=== PATIENT | male | born 1930 | race Caucasian/White ===

== ENCOUNTER 2016-06-08 19:09 | Inpatient (IN) | payer OTHER ==
[2016-06-08] MEDS ORDERED: SODIUM CHLORIDE 1,000 ML IV SCH (19:30)
[2016-06-08 19:42] LABS: BASOPHIL 0.3 % (0-2.0); EOSINOPHIL 0.2 % (0-4.5); MCH 30.7 pg (25.7-33.7); MCHC 33.2 g/dl (32.0-35.9); MEAN CELL VOLUME 92.4 fl (80-96); MEAN PLT VOLUME 8.8 fl (7.5-11.1); NEUTROPHILS 82.4 % (42.8-82.8); PLATELET COUNT 92 K/MM3 (134-434); RDW 18.8 % (11.9-15.9)
[2016-06-08 19:53] LABS: INR 1.47 (0.82-1.09); PROTHROMBIN TIME (PATIENT) 16.3 SEC (9.98-11.88)
[2016-06-08 20:03] LABS: ALBUMIN 3.8 g/dl (3.4-5.0); CALCIUM 8.5 mg/dL (8.5-10.1); CREATININE 1.2 mg/dL (0.7-1.3); TOT PROT 7.7 g/dl (6.4-8.2)
[2016-06-08 20:04] LABS: TROPONIN I 0.04 ng/ml (0.00-0.05)
[2016-06-08] MEDS ORDERED: FUROSEMIDE 40 MG/4 ML INJECTABLE VIAL IVPB ONE (20:09)
[2016-06-08] MEDS ORDERED: NITROGLYCERIN 25MG/D5W 250ML 250 ML IVPB SCH (20:15)
[2016-06-08] MEDS ORDERED: NITROGLYCERIN 25MG/D5W 250ML 250 ML IVPB ONE (20:23)
[2016-06-08] MEDS ORDERED: FUROSEMIDE 40 MG/4 ML INJECTABLE VIAL ONE (20:23)
--- NOTE | 2016-06-08 21:03 | PDOC ---
History of Present Illness - General History Source: Patient, EMS, Spouse Exam Limitations: No Limitations - History of Present Illness Initial Comments: 06/08/16 21:36 Patient was seen and evaluated immediately upon arrival to the ED, this note was entered at a later time. The patient is an 85 year old male, with a significant past medical history of HTN, Afib on Eliquis, s/p CABG (2011) and s/p valve replacement (2011), who presents to the emergency department via EMS with sudden onset weakness at approximately 6PM this evening. The patients is with him in the ED. She states that when his symptoms began, the patient immediately called her over. She states that the patient suddenly began shaking, which she states lasted for a couple minutes before subsiding. She immediately initiated EMS. EMS reports that on scene, the patient was weak and was transported to the ambulance via a stair chair but was AAO x 4 and was verbal en route to the ED. However, upon arrival to the ED, the patient is nonverbal. The patients denies a history of seizures. states that this has never happened to him before. Allergies: None reported. Past Surgical History: CABG (1998); Valve replacement (2011) Social History: Former smoker. Denies alcohol or drug use. PCP: Dr. Soriano <Desiree Ann - Last Filed: 06/08/16 23:55> <Parker Charlton - Last Filed: 06/09/16 00:59> - General Chief Complaint: Weakness Stated Complaint: WEAKNESS Time Seen by Provider: 06/08/16 19:27 Past History <Desiree Ann - Last Filed: 06/08/16 23:55> - Past Medical History HTN: Yes Hypercholesterolemia: Yes Other medical history: Leaky Mitral Valve - Surgical History Cardiac Surgery: Yes (open Heart Sx) - Psycho/Social/Smoking Cessation Hx Suicidal Ideation: No Smoking History: Former smoker Have you smoked in the past 12 months: No Information on smoking cessation initiated: No Hx Alcohol Use: No Drug/Substance Use Hx: No <Parker Charlton - Last Filed: 06/09/16 00:59> - Past Medical History Allergies/Adverse Reactions: Allergies Allergy/AdvReac Type Severity Reaction Status Date / Time No Known Allergies Allergy Unverified 06/08/16 19:48 Home Medications: Ambulatory Orders Apixaban [Eliquis] 2.5 mg PO BID 06/08/16 Atorvastatin Ca [Lipitor] 40 mg PO HS 06/08/16 Furosemide [Lasix] 60 mg PO DAILY 06/08/16 Metoprolol Succinate [Toprol Xl] 50 mg PO DAILY 06/08/16 Review of Systems - Review of Systems Able to Perform ROS?: No Comments:: 06/08/16 21:37 Unable to perform ROS due to patients clinical condition at the time of arrival to the ED. <Desiree Ann - Last Filed: 06/08/16 23:55> *Physical Exam - Vital Signs Last Vital Signs Temp Pulse Resp BP Pulse Ox 98.9 F 87 21 102/74 97 06/08/16 19:10 06/08/16 20:42 06/08/16 20:42 06/08/16 20:42 06/08/16 20:42 <Desiree Ann - Last Filed: 06/08/16 23:55> - Vital Signs Last Vital Signs Temp Pulse Resp BP Pulse Ox 98.9 F 87 21 102/74 97 06/08/16 19:10 06/08/16 20:42 06/08/16 20:42 06/08/16 20:42 06/08/16 20:42 - Physical Exam Comments: 06/09/16 00:46 EXAMINATION: patient was seen and evaluated by me immediately upon arrival. This H&P is being recorded post admission. CONSTITUTIONAL: On initial evaluation at 21:49: Patient is awake, unable to speak, does not follow commands, appears mildly hypoxemic on room air HEAD: Normocephalic; atraumatic EYES: Unable to test for extraocular movements; pupils are irregular and nonreactive bilaterally; ENMT: External appears normal; normal oropharynx NECK: Supple; non-tender; no JVD, no carotid bruits; CARD: Irregular, Normal S1, S2; 2/6 sys murmurs, rubs, or gallops RESP: Normal chest excursion with respiration; + decreased breath sounds at the bases, mild intermittent rhonchi bilaterally; ABD: Soft, non-distended; non-tender; no palpable organomegaly, no palpable hernias EXT: Normal passive ROM in all four extremities; non-tender to palpation; distal pulses intact SKIN: Warm, dry, no rash NEURO: Awake, mute, doesn't follow commands, Babinski negative bilaterally, Upon reevaluation at 22:55 Patient is noted to be awake, alert, follows simple commands, is oriented to self only (patient states that he thinks he is at school) Unable to test for extraocular ocular movements; cranial nerves II through XII are grossly intact; motor is 2/5 to upper and lower extremities bilaterally; Patient reevaluated at 23:47 Patient appears more awake and alert, follows commands, is oriented to self and place, recognizes family members at bedside. Extraocular movements are intact bilaterally; motor: 3 of 5 to upper and lower extremities bilaterally; unable to test for pronation drift; gait-deferred. <Parker Charlton - Last Filed: 06/09/16 00:59> Heart Score/ECG Review #1 ECG reviewed & interpreted by me at: 19:55 (Vent Rate: 91 bpm. Atrial fibrillation with premature ventricular or aberrantly conducted complexes. Left bundle branch block. ) <Desiree Ann - Last Filed: 06/08/16 23:55> ED Treatment Course - LABORATORY CBC & Chemistry Diagram: 06/08/16 19:25 06/08/16 19:25 - ADDITIONAL ORDERS Additional order review: Laboratory Results 06/08/16 06/08/16 06/08/16 19:25 19:25 19:25 INR 1.47 H Sodium 142 Potassium 3.5 Chloride 102 Carbon Dioxide 28 Anion Gap 12 BUN 26 H Creatinine 1.2 Creat Clearance w eGFR 57.41 Random Glucose 143 H Calcium 8.5 Total Bilirubin 1.0 AST 14 L ALT 16 Alkaline Phosphatase 114 Creatine Kinase 104 Troponin I 0.04 Total Protein 7.7 Albumin 3.8 Triglycerides 86 Cholesterol 73 Total LDL Cholesterol 32 HDL Cholesterol 46 Blood Type A POSITIVE Antibody Screen Negative 06/08/16 19:25 RBC 3.38 L MCV 92.4 MCHC 33.2 RDW 18.8 H MPV 8.8 Neutrophils % 82.4 Lymphocytes % 11.0 Monocytes % 6.1 Eosinophils % 0.2 Basophils % 0.3 - Medications Given in the ED: ED Medications Discontinued Medications Generic Name Dose Route Start Last Admin Trade Name Freq PRN Reason Stop Dose Admin Furosemide 40 mg 06/08/16 20:09 06/08/16 20:30 Lasix Injection - IVPB 06/08/16 20:10 40 mg ONCE ONE Administration <Desiree Ann - Last Filed: 06/08/16 23:55> - LABORATORY CBC & Chemistry Diagram: 06/08/16 19:25 06/08/16 19:25 - ADDITIONAL ORDERS Additional order review: Laboratory Results 06/08/16 06/08/16 06/08/16 19:25 19:25 19:25 INR 1.47 H Sodium 142 Potassium 3.5 Chloride 102 Carbon Dioxide 28 Anion Gap 12 BUN 26 H Creatinine 1.2 Creat Clearance w eGFR 57.41 Random Glucose 143 H Calcium 8.5 Total Bilirubin 1.0 AST 14 L ALT 16 Alkaline Phosphatase 114 Creatine Kinase 104 Troponin I 0.04 Total Protein 7.7 Albumin 3.8 Triglycerides 86 Cholesterol 73 Total LDL Cholesterol 32 HDL Cholesterol 46 Blood Type A POSITIVE Antibody Screen Negative 06/08/16 19:25 RBC 3.38 L MCV 92.4 MCHC 33.2 RDW 18.8 H MPV 8.8 Neutrophils % 82.4 Lymphocytes % 11.0 Monocytes % 6.1 Eosinophils % 0.2 Basophils % 0.3 - RADIOLOGY Radiology Studies Ordered: Category Date Time Status HEAD CT (STROKE) [CT] Stat CT Scan 06/08/16 19:28 Completed CHEST X-RAY PORTABLE* [RAD] Stat Radiology 06/08/16 19:30 Completed - Medications Given in the ED: ED Medications Discontinued Medications Generic Name Dose Route Start Last Admin Trade Name Freq PRN Reason Stop Dose Admin Furosemide 40 mg 06/08/16 20:09 06/08/16 20:30 Lasix Injection - IVPB 06/08/16 20:10 40 mg ONCE ONE Administration <Parker Charlton - Last Filed: 06/09/16 00:59> Medical Decision Making - Medical Decision Making 06/08/16 21:37 EXAM: RAD/CHEST X-RAY PORTABLE Reviewed By: Dr. Kamari Hogan IMPRESSION: Cardiomegaly and possible mild congestion. Clinical correlation and follow-up recommended. EXAM: CT/HEAD CT (STROKE) Reviewed By: Dr. Kamari Hogan IMPRESSION: No evidence of acute intracranial pathology. EXAM: CT/HEAD CT WITHOUT CONTRAST Reviewed By: Dr. Kamari Hogan IMPRESSION: Limited study with suspected poorly defined bilateral pulmonary masses suspicious for malignancy. There are bilateral pleural effusions and bibasilar atelectasis also noted. Clinical correlation and follow up recommended. Called [facility] at at 19:33, 19:45 and 20:05. Connected and case discussed with Dr. Galindo at 20:05. <Desiree Ann - Last Filed: 06/08/16 23:55> - Medical Decision Making 06/09/16 00:53 Patient is a frail-appearing 85-year-old male with history of CAD, mitral valve repair, atrial fibrillation on Eliquis who presents with altered mental status, mutism and initial evaluation and diffuse weakness. Patient also presents with to maintain oxygen saturation above 95%. Patient's presentation is likely consistent with a post ictal state rather than acute CVA given the initial symptoms began with a seizure-like episode. I discussed the case with Dr. galindo of neurology who agreed that the patient was not a candidate for TPA given bilateral weakness, seizure prior to the onset of symptoms and previous anticoagulation with Eliquis. Patient's CT of head showed no evidence of acute intracranial pathology. After a period of observation, patient is now a no 3, follows commands but does complain of generalized weakness. Patient's chest x- ray revealed cardiomegaly, bilateral pleural effusions and alveolar infiltrates. CT of chest without IV contrast was obtained and revealed bilateral pleural effusions and poorly identified bilateral masses which are suspected for malignancy. Patient's history of trauma cytopenia is chronic. CBC reveals no evidence of leukocytosis and there is no indication for packed RBC transfusion at this time. Patient will be admitted to noncardiac telemetry further evaluation and treatment of his weakness as well as investigation of his pulmonary masses. We'll consult pulmonology. <Parker Charlton - Last Filed: 06/09/16 00:59> *DC/Admit/Observation/Transfer - Attestations Scribe Attestion: 06/08/16 21:35 Documentation prepared by Desiree Ann, acting as medical records administrator for Parker Charlton MD. <Desiree Ann - Last Filed: 06/08/16 23:55> <Parker Charlton - Last Filed: 06/09/16 00:59> Diagnosis at time of Disposition: Seizures, Pulmonary mass Altered mental status Qualifiers: Altered mental status type: unspecified Qualified Code(s): R41.82 - Altered mental status, unspecified - Discharge Dispostion Condition at time of disposition: Fair - Referrals Referrals: Americo Soriano [Primary Care Provider] -
--- NOTE | 2016-06-09 00:33 | PN ---
<Marian Shaikh - Last Filed: 06/09/16 00:32> Teaching Attending Note Name of Resident: Aleah Sargent <Scar Shay - Last Filed: 06/09/16 04:52> Teaching Attending Note ATTENDING PHYSICIAN STATEMENT I saw and evaluated the patient. I reviewed the resident's note and discussed the case with the resident. I agree with the resident's findings and plan as documented. SUBJECTIVE: Patient is an 85 year old male who presented to the emergency department via EMS with sudden onset weakness at approximately 6PM this evening. Patients was with him in the ED but has since gone home. She previously stated that when his symptoms began, he immediately called her over. She states that the patient suddenly began shaking, which she stated lasted for a couple minutes before subsiding. She immediately initiated EMS. EMS reported that on scene, the patient had another episode en route to the ED. Upon examination patient is oriented to name and place but not time. The patient notes that he feels very tired but denies any weakness or tingling. The patient states that he lives at home with his and at baseline he is ambulate without assistance. Patient denies any history of seizures or LOC. His previously denied any history of seizures. Past medical history: HTN, Afib, CABG (2011), and valve replacement (2011), OBJECTIVE: Vital Signs: Last Vital Signs Temp Pulse Resp BP Pulse Ox 98.3 F 68 20 101/67 95 06/09/16 00:30 06/09/16 00:30 06/09/16 00:30 06/09/16 00:30 06/09/16 00:30 GENERAL: (+) Oriented x2, awake, alert, and in no acute distress HEENT: (+) Pupils dilated with diminished response, atraumatic, EOMI. Moist mucosa. No JVD LUNGS: No distress, speaks full sentences, clear to auscultation bilaterally HEART: (+) Regular rate, irregular rhythm, normal S1 and S2, no murmurs, rubs or gallops, peripheral pulses normal and equal bilaterally. ABDOMEN: Soft, nontender, normoactive bowel sounds. No guarding, no rebound. No masses EXTREMITIES: Normal inspection, Normal range of motion, no edema. No clubbing or cyanosis. NEUROLOGICAL: Cranial nerves II through XII grossly intact. Normal speech, no focal sensorimotor deficits SKIN: Warm, Dry, normal turgor, no rashes or lesions noted. Labs: CBCD WBC 9.0 K/mm3 (4.0-10.0) 06/08/16 19:25 RBC 3.38 M/mm3 (4.00-5.60) L 06/08/16 19:25 Hgb 10.4 GM/dL (11.7-16.9) L 06/08/16 19:25 Hct 31.2 % (35.4-49) L 06/08/16 19:25 MCV 92.4 fl (80-96) 06/08/16 19:25 MCHC 33.2 g/dl (32.0-35.9) 06/08/16 19:25 RDW 18.8 % (11.9-15.9) H 06/08/16 19:25 Plt Count 92 K/MM3 (134-434) L 06/08/16 19:25 MPV 8.8 fl (7.5-11.1) 06/08/16 19:25 CMP Sodium 142 mmol/L (136-145) 06/08/16 19:25 Potassium 3.5 mmol/L (3.5-5.1) 06/08/16 19:25 Chloride 102 mmol/L (98-107) 06/08/16 19:25 Carbon Dioxide 28 mmol/L (21-32) 06/08/16 19:25 Anion Gap 12 (8-16) 06/08/16 19:25 BUN 26 mg/dL (7-18) H 06/08/16 19:25 Creatinine 1.2 mg/dL (0.7-1.3) 06/08/16 19:25 Creat Clearance w eGFR 57.41 (>60) 06/08/16 19:25 Calcium 8.5 mg/dL (8.5-10.1) 06/08/16 19:25 Total Bilirubin 1.0 mg/dL (0.2-1.0) 06/08/16 19:25 AST 14 U/L (15-37) L 06/08/16 19:25 ALT 16 U/L (12-78) 06/08/16 19:25 Alkaline Phosphatase 114 U/L (45-117) 06/08/16 19:25 Total Protein 7.7 g/dl (6.4-8.2) 06/08/16 19:25 Albumin 3.8 g/dl (3.4-5.0) 06/08/16 19:25 Imaging: Head CT Impression: No evidence of acute intracranial pathology. Chest CT Discussion: Evaluation of the lung garcia demonstrates poorly defined masses throughout both lungs. While these could represent areas of masslike consolidation, the possibility of malignancy is most likely. These masses include an ill-defined lesion in the left upper lobe measuring approximately 5.6 cm. There is a large central right lung mass which does contain calcification. Impression: Limited study with suspected poorly defined bilateral pulmonary masses suspicious for malignancy. There are bilateral pleural effusions and bibasilar atelectasis also noted. Clinical correlation and follow up recommended. Chest X-Ray Impression: Cardiomegaly and possible mild congestion. Clinical correlation and follow-up recommended. 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 Documentation prepared by Scar Shay, acting as medical billing representative for Dr. Hawa MD.
--- NOTE | 2016-06-09 00:39 | HP ---
CHIEF COMPLAINT: New onset seizure. PCP: Dr. Soriano. HISTORY OF PRESENT ILLNESS: 85 year old male was brought in by EMS accompanied by his after he had 1 episode of new onset seizure at home. As per the information, patient was in the kitchen and approximately at 6pm yesterday, patient suddenly began shaking for a couple of minutes, had to hold him to prevent from falling, but he ended up breaking some dishes. As per the EMS report, patient felt weak, was able to communicate, was AAO x 4 but on arrival to the ED, he was non verbal for sometime. Patients mentions its a new onset seizure, no similar episodes in the past before. On further questioning, patient said he doesn't remember what brought him to the hospital, doesn't remember his prior events. Patient reports of feeling tired and weak. Denies headache, dizziness, chest pain, sob, palpitation, abdominal pain, nausea or vomiting. Patient did say he has difficulty opening his eyes in bright light. Speech was clear and understandable. not at bed side. ER course was notable for: (1) CBC, CMP, UA (2) CXR, Head CT, CT chest (3) Nitroglycerine, Furosemide Recent Travel: None PAST MEDICAL HISTORY: HTN, Afib on Eliquis, s/p CABG (2011) and s/p valve replacement (2011) PAST SURGICAL HISTORY: As mentioned above Social History: Smoking: Started smoking at the age of 14 years, 1 pack/day , quit 20 yrs ago. Alcohol: Never took alcohol Drugs: No illicit drug use Family History: Unknown Allergies No Known Allergies Allergy (Unverified 06/08/16 19:48) HOME MEDICATIONS: Medication Instructions Recorded Apixaban [Eliquis] 2.5 mg PO BID 06/08/16 Atorvastatin Ca [Lipitor] 40 mg PO HS 06/08/16 Furosemide [Lasix] 60 mg PO DAILY 06/08/16 Metoprolol Succinate [Toprol Xl] 50 mg PO DAILY 06/08/16 REVIEW OF SYSTEMS CONSTITUTIONAL: Present: Generalized weakness, malaise Absent: fever, chills, diaphoresis, , loss of appetite, weight change HEENT: Absent: rhinorrhea, nasal congestion, throat pain, throat swelling, difficulty swallowing, mouth swelling, ear pain, eye pain, visual changes CARDIOVASCULAR: Absent: chest pain, syncope, palpitations, irregular heart rate, lightheadedness , peripheral edema RESPIRATORY: Absent: cough, shortness of breath, dyspnea with exertion, orthopnea, wheezing, stridor, hemoptysis GASTROINTESTINAL: Absent: abdominal pain, abdominal distension, nausea, vomiting, diarrhea, constipation, melena, hematochezia GENITOURINARY: Absent: dysuria, frequency, urgency, hesitancy, hematuria, flank pain, genital pain MUSCULOSKELETAL: Absent: myalgia, arthralgia, joint swelling, back pain, neck pain SKIN: Absent: rash, itching, pallor HEMATOLOGIC/IMMUNOLOGIC: Absent: easy bleeding, easy bruising, lymphadenopathy, frequent infections ENDOCRINE: Absent: unexplained weight gain, unexplained weight loss, heat intolerance, cold intolerance NEUROLOGIC: Present: Tired Absent: headache, focal weakness or paresthesias, dizziness, unsteady gait, seizure, mental status changes, bladder or bowel incontinence PSYCHIATRIC: Absent: anxiety, depression, suicidal or homicidal ideation, hallucinations. PHYSICAL EXAMINATION Vital Signs - 24 hr 06/08/16 06/08/16 06/08/16 19:10 19:49 20:13 Temperature 98.9 F Pulse Rate 101 H Pulse Rate [ Apical] Respiratory 18 Rate Blood Pressure 149/76 Blood Pressure 100/60 [Left Arm] Blood Pressure 117/58 [Right Arm] O2 Sat by Pulse 88 L 96 96 Oximetry (%) 06/08/16 06/08/16 06/09/16 20:42 21:52 00:30 Temperature 98.3 F 98.3 F Pulse Rate Pulse Rate [ 87 68 68 Apical] Respiratory 21 20 20 Rate Blood Pressure Blood Pressure 102/74 103/71 101/67 [Left Arm] Blood Pressure [Right Arm] O2 Sat by Pulse 97 95 Oximetry (%) GENERAL: Thinly built male, Awake, alert, and oriented to name, place, president of the [place], unable to answer year and day, in no acute distress. HEAD: Normal with no signs of trauma. EYES: Non reactive to light, mydriasis, EOM intact, no pallor or icterus. EARS, NOSE, THROAT: Ears normal. Moist mucous membranes. NECK: Supple. LUNGS: Breath sounds equal, clear to auscultation bilaterally. No wheezes, and no crackles. No accessory muscle use. HEART: Irregularly irregular, normal S1 and S2 without murmur. ABDOMEN: Soft, nontender, not distended, normoactive bowel sounds, no guarding, no rebound, no masses. No hepatomegaly or splenomegaly. MUSCULOSKELETAL: Normal range of motion at all joints. No bony deformities or tenderness. No CVA tenderness. UPPER EXTREMITIES: 2+ pulses, warm, well-perfused. No cyanosis. No clubbing. Cap refill <2 seconds. No peripheral edema. LOWER EXTREMITIES: 2+ pulses, warm, well-perfused. No calf tenderness. No peripheral edema. NEUROLOGICAL: Bulk and tone Normal, Power 3/5 in all limbs, reflexes normal including babinski negative PSYCHIATRIC: Cooperative. Eyes closed throughout the conversation. Appropriate mood and affect. SKIN: Warm, dry, normal turgor, no rashes or lesions noted. Laboratory Results - last 24 hr 06/08/16 06/08/16 06/08/16 19:25 19:25 19:25 WBC 9.0 RBC 3.38 L Hgb 10.4 L Hct 31.2 L MCV 92.4 MCHC 33.2 RDW 18.8 H Plt Count 92 L MPV 8.8 Neutrophils % 82.4 Lymphocytes % 11.0 Monocytes % 6.1 Eosinophils % 0.2 Basophils % 0.3 INR 1.47 H Sodium 142 Potassium 3.5 Chloride 102 Carbon Dioxide 28 Anion Gap 12 BUN 26 H Creatinine 1.2 Creat Clearance w eGFR 57.41 Random Glucose 143 H Calcium 8.5 Total Bilirubin 1.0 AST 14 L ALT 16 Alkaline Phosphatase 114 Creatine Kinase 104 Troponin I 0.04 Total Protein 7.7 Albumin 3.8 Triglycerides 86 Cholesterol 73 Total LDL Cholesterol 32 HDL Cholesterol 46 Blood Type Antibody Screen 06/08/16 19:25 WBC RBC Hgb Hct MCV MCHC RDW Plt Count MPV Neutrophils % Lymphocytes % Monocytes % Eosinophils % Basophils % INR Sodium Potassium Chloride Carbon Dioxide Anion Gap BUN Creatinine Creat Clearance w eGFR Random Glucose Calcium Total Bilirubin AST ALT Alkaline Phosphatase Creatine Kinase Troponin I Total Protein Albumin Triglycerides Cholesterol Total LDL Cholesterol HDL Cholesterol Blood Type A POSITIVE Antibody Screen Negative CXR 06/08/2015: Cardiomegaly and possible mild congestion. Possibility of diffuse infiltrates/nodules cannot be excluded CT chest without contrast 06/08/2016: Limited study with suspected poorly defined bilateral pulmonary masses suspicious for malignancy. There are bilateral pleural effusions and bibasilar atelectasis also noted. CT Head 06/08/2016: There is no evidence of acute intracranial hemorrhage, mass lesions or infarctions. There is a moderate degree of diffuse cerebral atrophy with sulcal widening and ventricular dilatation. ASSESSMENT/PLAN: 85 year old male with Past Medical Hx of HTN, Afib on Eliquis, s/p CABG (2011) and s/p valve replacement (2011) was brought in by EMS accompanied by his after he had 1 episode of new onset seizure at home. # New onset seizure Had 2 episodes of seizure with post ictal confusion Seizure less likely due to hypoglycemia as sugar was 143 Seizure less likey due to metabolic causes as his metabolic panels are WNL Rule out brain mets from the lungs MRI brain without contrast ordered. Couldn't give contrast due to high creatinine NPO Seizure precautions IV Lorazepam 2mg PRN IV NS @ 100mls/hr Neurology consult placed # Pulmonary Chest CT shows B/L pulmonary masses suspicious for malignancy with b/l pleural effusions Pulmonary consult placed Would consider oncology consult Would consider diagnostic thoracocentesis. # Cardiology: H/O Hypertension-now stable H/O Atrial fibrillation-rate controlled H/O CABG 2011 and valve placement 2011 Continued home medications-Furosemide 60mg Daily, Atorvastatin 40mg HS, Metoprolol 50mg Daily Elliquis on hold, would consider continuing after MRI brain reports # FEN IV NS @ 100mls/hr Electrolytes WNL NPO # Prophylaxis For DVT- On SCD's For GI- Not indicated # Code Status-Full Code # Dispo: Admitted in Med surg. Duration of stay unknown. Illness, Investigation and Plan of care explained to the patient. He verbalized understanding. Case seen and discussed with Dr. Shaikh. Visit type - Emergency Visit Emergency Visit: Yes ED Registration Date: 06/09/16 Care time: The patient presented to the Emergency Department on the above date and was hospitalized for further evaluation of their emergent condition. - New Patient This patient is new to me today: Yes Date on this admission: 06/09/16 - Critical Care Critical Care patient: No
--- NOTE | 2016-06-09 01:39 | MSN ---
Admitting History and Physical - Admission Chief Complaint: Weakness after seizure History of Present Illness: The patient is an 85 YO M w/ PMX of HTN, A.Fib, CABG, and Valve replacement who presented to the ED with weakness after having a seizure. The patient does not have a history of seizures. The patients states that around 6pm he called her over because he felt strange, then the patients had to hold him up because he started seizing. They called the EMS after this. The patient was verbal until he was on route to the hospital when he became nonverbal. In the ED he states that he has no memory of seizing. He is Alert and ortiented to person and place but not to the year. Patient feels very weak. He is a former pack a day smoker for over 40 years but quit 20 years ago. 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 Cardiovascular: Yes: AFIB, Other (Valve replacement) Heme/Onc: Yes: Anemia - Past Surgical History Past Surgical History: Yes: CABG, Valve Replacement - Smoking History Smoking history: Former smoker Have you smoked in the past 12 months: No If you are a former smoker, when did you quit?: 20 yrs ago - Alcohol/Substance Use Hx Alcohol Use: No History of Substance Use: reports: None - Social History Usual Living Arrangement: Yes: With Spouse ADL: Independent Home Medications - Allergies Allergies/Adverse Reactions: Allergies Allergy/AdvReac Type Severity Reaction Status Date / Time No Known Allergies Allergy Unverified 06/08/16 19:48 - Home Medications Home Medications: Ambulatory Orders Apixaban [Eliquis] 2.5 mg PO BID 06/08/16 Atorvastatin Ca [Lipitor] 40 mg PO HS 06/08/16 Furosemide [Lasix] 60 mg PO DAILY 06/08/16 Metoprolol Succinate [Toprol Xl] 50 mg PO DAILY 06/08/16 Review of Systems - Review of Systems Constitutional: reports: Weakness (thoughout body) Eyes: reports: Other (Cataracts) HENT: reports: No Symptoms Neck: reports: No Symptoms Cardiovascular: reports: No Symptoms Respiratory: reports: No Symptoms Gastrointestinal: reports: No Symptoms Genitourinary: reports: No Symptoms Breasts: reports: No Symptoms Reported Musculoskeletal: reports: No Symptoms Integumentary: reports: No Symptoms Neurological: reports: Confusion, Seizure, Weakness Endocrine: reports: No Symptoms Hematology/Lymphatic: reports: No Symptoms Psychiatric: reports: No Symptoms Physical Examination Vital Signs: Vital Signs Temperature 98.3 F 06/09/16 00:30 Pulse Rate 68 06/09/16 00:30 Respiratory Rate 20 06/09/16 00:30 Blood Pressure 101/67 06/09/16 00:30 O2 Sat by Pulse Oximetry (%) 95 06/09/16 00:30 Constitutional: Yes: No Distress, Calm, Pallor, Thin Eyes: Yes: Conjunctiva Clear, Cataracts, Other (Mydriasis) HENT: Yes: WNL, Atraumatic, Normocephalic Neck: Yes: WNL, Supple, Trachea Midline Cardiovascular: Yes: Pulse Irregular, S1, S2 Respiratory: Yes: Regular, CTA Bilaterally, On Nasal O2 Gastrointestinal: Yes: WNL, Normal Bowel Sounds, Soft Musculoskeletal: Yes: WNL Extremities: Yes: WNL Edema: No Integumentary: Yes: WNL Neurological: Yes: Alert, Confusion, Weakness. No: Tingling, Tremors Psychiatric: Yes: Alert Labs: CBC, BMP 06/08/16 19:25 06/08/16 19:25 Assessment/Plan The patient is an 85 YO M w/ PMX of HTN, A.Fib, CABG, and Valve replacement who presented to the ED with weakness after having a seizure. Due to the suspicious findings on his lung CT, preliminary diagnosis of possible lung daniel to the brain. Seizure -NPO -Ativan PRN -IV Fluids -Neruo Consult -Speech and swallow -MRI Brain Lung Nodules -Pulm Consult -Thoracocentiesis of pleural effusions -Possibly Onc consult HTN -Cont Home Meds A. Fib -Cont. Eliquis due to Irregualar heart rate and no signs of bleed on CT
[2016-06-09] MEDS ORDERED: LORAZEPAM CARPU-JECT 2 MG/ML DISP.SYRIN IVPUSH PRN (01:58)
[2016-06-09 06:19] LABS: MCH 30.3 pg (25.7-33.7); MCHC 32.8 g/dl (32.0-35.9); MEAN CELL VOLUME 92.4 fl (80-96); MEAN PLT VOLUME 8.9 fl (7.5-11.1); PLATELET COUNT 89 K/MM3 (134-434); RDW 18.3 % (11.9-15.9); WHITE BLOOD COUNT 8.5 K/mm3 (4.0-10.0)
[2016-06-09 06:50] LABS: ALBUMIN 3.2 g/dl (3.4-5.0); ANION GAP 10 (8-16); BILIRUBIN,TOTAL 0.8 mg/dL (0.2-1.0); CALCIUM 8.1 mg/dL (8.5-10.1); CO2 30 mmol/L (21-32); CREATININE 1.1 mg/dL (0.7-1.3); GLUCOSE,RANDOM 99 mg/dL (74-106); MAGNESIUM 2.1 mg/dL (1.8-2.4); PHOSPHOROUS 3.3 mg/dL (2.5-4.9); SGOT/AST 10 U/L (15-37); SGPT/ALT 14 U/L (12-78); TOT PROT 6.3 g/dl (6.4-8.2)
[2016-06-09 06:51] LABS: ALK PHOS 87 U/L (45-117)
--- NOTE | 2016-06-09 08:29 | PN ---
Physical Exam: SUBJECTIVE: Patient seen and examined. Alert, awake, oriented to person, age, place. not date. does not recall yesterday's events, last thing he remembers is being in bed. 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 OBJECTIVE: GENERAL: The patient is awake, alert, and oriented x2, in no acute distress. HEAD: Normal with no signs of trauma. bitemporal wasting EYES: mydriasis, extraocular movements intact, sclera anicteric, conjunctiva clear. No ptosis. ENT: Ears normal, nares patent, oropharynx clear with thrush on upper palate above uvula, dentures in place. moist mucous membranes. NECK: Trachea midline, full range of motion, supple. no JVD, no bruits LUNGS: Breath sounds equal, clear to auscultation bilaterally, no wheezes, no crackles, no accessory muscle use. HEART: afib, S1, S2 without murmur, rub or gallop. well healed midline sternum scar ABDOMEN: Soft, nontender, nondistended, normoactive bowel sounds, no guarding, no rebound, no hepatosplenomegaly, no masses. EXTREMITIES: 1+ pulses, warm, well-perfused, no edema. strength diminished in Upper and lower Ext 2/5. NEUROLOGICAL: Normal speech, gait not observed. PSYCH: Normal mood, normal affect. calm cooperative, appropraitely answer questions. SKIN: Warm, dry, normal turgor, no rashes or lesions noted Laboratory Results - last 24 hr 06/09/16 06/09/16 05:40 05:40 WBC 8.5 RBC 3.03 L Hgb 9.2 L D Hct 28.0 L MCV 92.4 MCHC 32.8 RDW 18.3 H Plt Count 89 L MPV 8.9 Sodium 144 Potassium 3.4 L Chloride 104 Carbon Dioxide 30 Anion Gap 10 BUN 22 H Creatinine 1.1 Creat Clearance w eGFR > 60 Random Glucose 99 D Calcium 8.1 L Phosphorus 3.3 Magnesium 2.1 Total Bilirubin 0.8 AST 10 L D ALT 14 Alkaline Phosphatase 87 D Total Protein 6.3 L Albumin 3.2 L Active Medications Generic Name Dose Route Start Last Admin Trade Name Freq PRN Reason Stop Dose Admin Atorvastatin Calcium 40 mg 06/09/16 22:00 Lipitor - PO HS SANDIE Furosemide 40 mg 06/10/16 06:00 Lasix Injection - IVPUSH BID@0600,1400 SANDIE Levetiracetam 500 mg 06/09/16 22:00 Keppra - PO BID SANDIE Lorazepam 2 mg 06/09/16 01:58 Ativan Injection - IVPUSH Q6H PRN Seizure Metoprolol Succinate 50 mg 06/09/16 10:00 06/09/16 11:00 Toprol Xl - PO 50 mg DAILY SANDIE Administration PENDING tests: EEG, brain MRI, CT of abd/pelvis, echo ASSESSMENT/PLAN: 85 year old male with HTN, Afib (on Eliquis), s/p CABG and mitral valve replacement BIBEMS for one episode of new onset seizure at home. - admit to Tele #New onset seizure - ruled out metabolic cause as no electrolyte abnormalities, BG 143, Head CT without acute pathology - r/o brain metasteses given mass found on chest CT, MRI brain pending read - elevate HOB 30-50 degrees to avoid aspiration, neuro checks - Ativan IV 2mg PRN - keppra 500mg po bid - dr. Hirsch, Neurology consult - EEG read pending #Abnormal Chest CT, r/o malignancy - Chest CT: b/l pulmonary effusion with masses suspicious for malignancy given patient's hx of smoking, however will scan abd/pelvis for alt source/mets - Dr. Patricio consulted for Pulmonary - discussed with IR for effusion tap for cytology and biopsy, likely sunday, will hold eliquis sunday and sunday - abd/pelvis CT pending read to r/o other primary vs mets into abdomen #Acute CHF - lasix 40mg IVpush bid - echo - Dr. Waddell consulted - no IVF # HTN - controlled - toprol 50mg po daily #CAD s/p CABG - lipitor 40mg HS #Afib - controlled - eliquis 2.5 BID continue tonight #Oral thrush - nystatin swish and swallow # DVT-SCD's # Code Status-Full Code Visit type - Emergency Visit Emergency Visit: No - New Patient This patient is new to me today: Yes Date on this admission: 06/09/16 - Critical Care Critical Care patient: No - Discharge Referral Referred to [facility] Med P.C.: No
[2016-06-09] MEDS ORDERED: FUROSEMIDE 40 MG TABLET (FP) PO SCH (10:00)
--- NOTE | 2016-06-09 10:08 | EKG ---
Test Reason : Blood Pressure : / mmHG Vent. Rate : 091 BPM Atrial Rate : 097 BPM P-R Int : 000 ms QRS Dur : 174 ms QT Int : 420 ms P-R-T Axes : 000 035 162 degrees QTc Int : 516 ms ATRIAL FIBRILLATION WITH PREMATURE VENTRICULAR OR ABERRANTLY CONDUCTED COMPLEXES LEFT BUNDLE BRANCH BLOCK ABNORMAL ECG NO PREVIOUS ECGS AVAILABLE Confirmed by KATIE MILIAN MD ([id number]) on 06/09/2016 10:07:46 AM Referred By: Confirmed By:KATIE MILIAN MD
[2016-06-09] MEDS: METOPROLOL SUCCINATE 50 MG TAB.SR.24H (FP) PO SCH (11:00)
[2016-06-09] MEDS ORDERED: METOPROLOL SUCCINATE 50 MG TAB.SR.24H (FP) ONE (12:29)
[2016-06-09] MEDS ORDERED: FUROSEMIDE 40 MG TABLET (FP) ONE (12:29)
--- NOTE | 2016-06-09 14:32 | PN ---
Teaching Attending Note Name of Resident: Luca Naranjo ATTENDING PHYSICIAN STATEMENT I saw and evaluated the patient. I reviewed the resident's note and discussed the case with the resident. I agree with the resident's findings and plan as documented. SUBJECTIVE: no fever or chills, has no pain , denies weakness , numbness or tingling . no visual changes . OBJECTIVE: NAD , awake , alert , knows he is in hospital, knows his age , not year ( per , his base line ) CV: RRR, no murmurs appreciated. JVD noted on both sides Lungs: clear bilaterally Ext : no edema Neuro: no facial droop, deformed , non reactive pupils b/l, tongue at mid line , EOMI , no nystagmus , nl facial sensation strength 5/5 in upper and lower ext prox and dist. sensation to light touch NL. reflexes 1+ biceps and knee jerk b/l . 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 no bleed on CT scan of head given his chest CT scan findings , need to r/o mets/tumors - MRI of brain pending - will have him on keppra until brain mets are r/o . if NO mets, likely we don' t need to treat the first seizure - neuro checks 2- Acute CHF : patient clinically is in acute heart failure ( JVDs, cxray and CT scan interstitial edema, elevated BNPin correct clincial setting , need for oxygen , and b/l pleural effusions ) - was given IVF in ER. will stop - change lasix to 40 IV BID - check echo - repeat EKG as initial one showed LBBB, no old one to compare to - consult card - daily weight and I&O 3- lung masses : could be malignancy ( lung cancer vs Mets) , also could be sarcoidosis . - check Acelevel - check CT of ABd /Pelvis - will start w/u with thoracocentesis for cytology - case was d/w Gebraerl. will plan for Sunday - hold eliquis for procedure for 48 hrs. ( no h/o stroke ) - Onc consult 4- h/o A fib: no h/o stroke. now in sinus - cont metoprolol - CHADS vasc is 4 . high risk for stroke , normally on eliquis. - Hold eliquis x 48 hrs for procedure 5- hypokalmeia replete 6- DVT PX : place SCDs while holding eliquis
--- NOTE | 2016-06-09 15:10 | CONSULT ---
Consult Consult Specialty:: PULM/CCM Referred by:: LAM Reason for Consultation:: Abnormal CT chest - History of Present Illness Chief Complaint: Seizure History of Present Illness: 85 M, previous smoker. History of HTN, Afib on Eliquis, s/p CABG (2011) and s/ p valve replacement (2011). According to his who is at the bedside, he has been SOB for almost 2 months. Recent visit to Primary MD at [facility] this past week. Had a CXR that revealed a pleural effusion. Admitted via the ER to generalized seizure that lasted a few minutes. En route to the ER he was apparently AAO. Patient is currently awake, alert, and oriented. He denies CP or SOB. CT chest : consistent with extensive metastatic disease / pleural effusions. Head CT : no acute pathology noted. 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 Cardio/Vascular: Yes: AFIB, Other (Valve replacement) - Past Surgical History Past Surgical History: Yes: CABG, Valve Replacement - Alcohol/Substance Use Hx Alcohol Use: No History of Substance Use: reports: None - Smoking History Smoking history: Former smoker Have you smoked in the past 12 months: No If you are a former smoker, when did you quit?: 20 yrs ago - Social History ADL: Independent Home Medications - Allergies Allergies/Adverse Reactions: Allergies Allergy/AdvReac Type Severity Reaction Status Date / Time No Known Allergies Allergy Unverified 06/08/16 19:48 - Home Medications Home Medications: Ambulatory Orders Apixaban [Eliquis] 2.5 mg PO BID 06/08/16 Atorvastatin Ca [Lipitor] 40 mg PO HS 06/08/16 Furosemide [Lasix] 60 mg PO DAILY 06/08/16 Metoprolol Succinate [Toprol Xl] 50 mg PO DAILY 06/08/16 Review of Systems - Review of Systems Constitutional: reports: Lethargy, Loss of Appetite, Malaise, Unintentional Wgt. Loss, Weakness. denies: Chills, Fever, Night Sweats Eyes: reports: No Symptoms HENT: reports: No Symptoms Neck: reports: No Symptoms Cardiovascular: reports: Shortness of Breath. denies: Chest Pain, Edema, Palpitations Respiratory: reports: Cough, SOB, SOB on Exertion. denies: Hemoptysis, Wheezing Gastrointestinal: reports: No Symptoms Genitourinary: reports: No Symptoms Breasts: reports: No Symptoms Reported Musculoskeletal: reports: No Symptoms Integumentary: reports: No Symptoms Neurological: reports: Change in LOC, Confusion, Seizure, Weakness. denies: Dizziness, Headache, Tremors Endocrine: reports: No Symptoms Hematology/Lymphatic: reports: No Symptoms Psychiatric: reports: No Symptoms Physical Exam Vital Signs: Vital Signs Temperature 98.3 F 06/09/16 00:30 Pulse Rate 70 06/09/16 03:50 Respiratory Rate 20 06/09/16 00:30 Blood Pressure 105/66 06/09/16 03:50 O2 Sat by Pulse Oximetry (%) 95 06/09/16 03:50 Constitutional: Yes: No Distress, Calm, Pallor Eyes: Yes: Conjunctiva Clear, EOM Intact HENT: Yes: Atraumatic, Normocephalic Neck: Yes: Supple, Trachea Midline Cardiovascular: Yes: Pulse Irregular Respiratory: Yes: Cough, Diminished, On Nasal O2, Rhonchi. No: Accessory Muscle Use, Stridor, Tachypnea, Wheezes Gastrointestinal: Yes: Normal Bowel Sounds, Soft ...Rectal Exam: Yes: Deferred Renal/: Yes: WNL Musculoskeletal: Yes: WNL Extremities: Yes: WNL Edema: No Peripheral Pulses WNL: Yes Integumentary: Yes: WNL Neurological: Yes: Alert, Oriented. No: Facial Droop, Numbness, Paresthesia, Tremors ...Motor Strength: WNL Psychiatric: Yes: Alert, Oriented Labs: CBC, BMP 06/09/16 05:40 06/09/16 05:40 Imaging - Results Chest X-ray: Report Reviewed, Image Reviewed Cat Scan: Report Reviewed, Image Reviewed Problem List - Problems (1) Altered mental status Code(s): R41.82 - ALTERED MENTAL STATUS, UNSPECIFIED Qualifiers: Altered mental status type: unspecified Qualified Code(s): R41.82 - Altered mental status, unspecified (2) Pulmonary mass Code(s): R91.8 - OTHER NONSPECIFIC ABNORMAL FINDING OF LUNG FIELD (3) Seizures Code(s): R56.9 - UNSPECIFIED CONVULSIONS (4) Pleural effusion Code(s): J90 - PLEURAL EFFUSION, NOT ELSEWHERE CLASSIFIED (5) Atrial fibrillation Code(s): I48.91 - UNSPECIFIED ATRIAL FIBRILLATION Assessment/Plan PLAN: Neuro consult called O2 as needed For MRI Will need tissue diagnosis -> likely least invasive option would be IR guided thoracentesis Seizure precautions At some point should have GI imaging/workup as CT chest may also be consistent with Metastasis from an extrapulmonary site. Will follow Thank you. Dr Patricio
--- NOTE | 2016-06-09 15:55 | CONSULT ---
Consult Consult Specialty:: Neurology Reason for Consultation:: Seizure - History of Present Illness History of Present Illness: 85 year old man with history of atrial fibrillation on eliquis, CABG, hypertension, presents with generalized tonic clonic seizure. Patient was in the kitchen and approximately yesterday, when noted to have full body shaking lasting minutes, followed by post ictal confusion. Patients mentions its a new onset seizure, no similar episodes in the past before. The patient does not recall the episode. Not currently on any AEDS. Recent CT chest showed evidence of lung mass which is currently being worked up. CT head shows atrophy no acute findings. 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 Cardio/Vascular: Yes: AFIB, Other (Valve replacement) - Past Surgical History Past Surgical History: Yes: CABG, Valve Replacement - Alcohol/Substance Use Hx Alcohol Use: No History of Substance Use: reports: None - Smoking History Smoking history: Former smoker Have you smoked in the past 12 months: No If you are a former smoker, when did you quit?: 20 yrs ago - Social History ADL: Independent Home Medications - Allergies Allergies/Adverse Reactions: Allergies Allergy/AdvReac Type Severity Reaction Status Date / Time No Known Allergies Allergy Unverified 06/08/16 19:48 - Home Medications Home Medications: Ambulatory Orders Apixaban [Eliquis] 2.5 mg PO BID 06/08/16 Atorvastatin Ca [Lipitor] 40 mg PO HS 06/08/16 Furosemide [Lasix] 60 mg PO DAILY 06/08/16 Metoprolol Succinate [Toprol Xl] 50 mg PO DAILY 06/08/16 Physical Exam Vital Signs: Vital Signs Temperature 98 F 06/09/16 10:30 Pulse Rate 72 06/09/16 10:30 Respiratory Rate 18 06/09/16 10:30 Blood Pressure 106/90 06/09/16 10:30 O2 Sat by Pulse Oximetry (%) 95 06/09/16 03:50 Constitutional: Yes: No Distress, Calm Eyes: Yes: EOM Intact HENT: Yes: Atraumatic, Normocephalic Neurological: Yes: Alert, Cran Nerves II-XII Intact ...Motor Strength: WNL Labs: CBC, BMP 06/09/16 05:40 06/09/16 05:40 Assessment/Plan 85 year old man with history of atrial fibrillation on eliquis, CABG, hypertension, presents with generalized tonic clonic seizure. Patient was in the kitchen and approximately yesterday, when noted to have full body shaking lasting minutes, followed by post ictal confusion. Patients mentions its a new onset seizure, no similar episodes in the past before. The patient does not recall the episode. Not currently on any AEDS. Recent CT chest showed evidence of lung mass which is currently being worked up. CT head shows atrophy no acute findings. Recommend MRI brain without contrast to rule out brain metastasis Would recommend starting patient on keppra 500 mg BID EEG Supportive care
[2016-06-09] MEDS ORDERED: POTASSIUM CHLORIDE TABS 20 MEQ TABLET.ER (FP) PO ONE ×2 (16:30→19:00)
[2016-06-09] MEDS ORDERED: FUROSEMIDE 40 MG/4 ML INJECTABLE VIAL IVPUSH ONE (18:44)
[2016-06-09 19:00] VITALS: BMI 24.8
[2016-06-09] MEDS: levETIRAcetam 500 MG TABLET (FP) PO SCH (22:50)
[2016-06-09] MEDS: APIXABAN 2.5 MG TABLET PO SCH (22:50)
[2016-06-09] MEDS: ATORVASTATIN CA 40 MG TABLET (FP) PO SCH (22:50)
[2016-06-09] MEDS: NYSTATIN 500,000 UNITS/5 ML SUSPENSION PO SCH (23:17)
[2016-06-10] MEDS: NYSTATIN 500,000 UNITS/5 ML SUSPENSION PO SCH (06:23)
[2016-06-10] MEDS: FUROSEMIDE 40 MG/4 ML INJECTABLE VIAL IVPUSH SCH ×2 (06:23→13:49)
[2016-06-10 06:59] LABS: MCH 30.5 pg (25.7-33.7); MCHC 32.9 g/dl (32.0-35.9); MEAN CELL VOLUME 92.8 fl (80-96); PLATELET COUNT 102 K/MM3 (134-434); RDW 18.5 % (11.9-15.9); WHITE BLOOD COUNT 9.6 K/mm3 (4.0-10.0)
[2016-06-10 07:58] LABS: CALCIUM 8.5 mg/dL (8.5-10.1); CREATININE 1.1 mg/dL (0.7-1.3)
--- NOTE | 2016-06-10 09:18 | PN ---
Physical Exam: SUBJECTIVE: Patient seen and examined Recalled yesterday's events. comfortable, denies any pain or SOB. OBJECTIVE: Vital Signs Period Temp Pulse Resp BP Sys/Low Pulse Ox Last 24 Hr 97.4 F-98.7 F 72-88 18-28 106-127/54-90 100-100 GENERAL: The patient is in no acute distress. ENT: oropharynx clear without thrush, dentures in place. moist mucous membranes. slightly bluish lips when attempt to speak in full sentences. LUNGS: Breath sounds equal, clear to auscultation bilaterally, quiet at bases. HEART: afib, S1, S2 without murmur, rub or gallop. well healed midline sternum scar ABDOMEN: Soft, nontender, nondistended, normoactive bowel sounds EXTREMITIES: 1+ pulses, warm, well-perfused, no edema. strength normal in UE and LE. NEUROLOGICAL: Normal speech whispered speech. awake, alert, and oriented to person, place, time. Sorenson in place. Laboratory Results - last 24 hr 06/10/16 06/10/16 05:35 05:35 WBC 9.6 RBC 3.21 L Hgb 9.8 L Hct 29.8 L MCV 92.8 MCHC 32.9 RDW 18.5 H Plt Count 102 L MPV 9.0 Sodium 144 Potassium 3.3 L Chloride 100 Carbon Dioxide 33 H Anion Gap 11 BUN 20 H Creatinine 1.1 Random Glucose 119 H D Calcium 8.5 Active Medications Generic Name Dose Route Start Last Admin Trade Name Freq PRN Reason Stop Dose Admin Apixaban 2.5 mg 06/09/16 22:00 06/09/16 22:50 Eliquis - PO 2.5 mg BID SANDIE Administration Atorvastatin Calcium 40 mg 06/09/16 22:00 06/09/16 22:50 Lipitor - PO 40 mg HS SANDIE Administration Furosemide 40 mg 06/10/16 06:00 06/10/16 06:23 Lasix Injection - IVPUSH 40 mg BID@0600,1400 SANDIE Administration Levetiracetam 500 mg 06/09/16 22:00 06/09/16 22:50 Keppra - PO 500 mg BID SANDIE Administration Lorazepam 2 mg 06/09/16 01:58 Ativan Injection - IVPUSH Q6H PRN Seizure Metoprolol Succinate 50 mg 06/09/16 10:00 06/09/16 11:00 Toprol Xl - PO 50 mg DAILY SANDIE Administration Nystatin 500,000 units 06/10/16 00:00 06/10/16 06:23 Nystatin Oral Suspension - PO 500,000 units Q6HPO SANDIE Administration ASSESSMENT/PLAN: 85 year old male with HTN, Afib (on Eliquis), s/p CABG and mitral valve replacement BIBEMS for one episode of new onset seizure at home. - discussed with Dr. Hirsch, will need MRI with contrast of brain to rule out masses, cerebral atrophy could also be cause of seizure, keppra should be continued until outpatient follow-up and reassessed for weaning by neurologist who will follow him. #New onset seizure - elevate HOB 30-50 degrees to avoid aspiration, neuro checks - Ativan IV 2mg PRN - keppra 500mg po bid - dr. Hirsch, Neurology consult - EEG read pending - alon MRI without contrast negative for acute pathology - Brain MRI with contrast pending. #Abnormal Chest CT, r/o malignancy, possible sarcoidosis given calcified lymph nodes and ILD findings on CT - Dr. Patricio consulted for Pulmonary - discussed with IR for effusion tap for cytology and biopsy, likely sunday, will hold eliquis sunday and sunday - abd/pelvis CT negative for masses - ALEXX level prior authorization approved, discussed with night lab agronomy supervisor, Magdy. Lab will be drawn tomorrow and sent on Sunday. cannot place order myself, they will place it. #Acute CHF - lasix 40mg IVpush bid - echo pending - Dr. Waddell consulted - no IVF - chest xray in the AM #Acute hypoxia, caused by CHF vs ILD - continous nasal cannula 5lpm, will consider bipap if needed # HTN - controlled - toprol 50mg po daily - Valsartan 40mg po daily #CAD s/p CABG - lipitor 40mg HS #Afib - controlled - eliquis 5 BID, discontinue for 24hrs on Sunday prior to procedure on Sunday # DVT-SCD's # Code Status-Full Code Visit type - Emergency Visit Emergency Visit: No - New Patient This patient is new to me today: No - Critical Care Critical Care patient: No - Discharge Referral Referred to [facility] Med P.C.: No
[2016-06-10] MEDS: METOPROLOL SUCCINATE 50 MG TAB.SR.24H (FP) PO SCH (10:12)
[2016-06-10] MEDS: APIXABAN 2.5 MG TABLET PO SCH (10:12)
[2016-06-10] MEDS: levETIRAcetam 500 MG TABLET (FP) PO SCH ×2 (10:12→21:30)
--- NOTE | 2016-06-10 11:54 | PN ---
Progress Note (short form) - Note Progress Note: History of Present Illness: 06/10 Patient seen and examined at bedside. Denies any side effects to starting keppra MRI brain reviewed, shows generalized volume loss, no acute findings 85 year old man with history of atrial fibrillation on eliquis, CABG, hypertension, presents with generalized tonic clonic seizure. Patient was in the kitchen and approximately yesterday, when noted to have full body shaking lasting minutes, followed by post ictal confusion. Patients mentions its a new onset seizure, no similar episodes in the past before. The patient does not recall the episode. Not currently on any AEDS. Recent CT chest showed evidence of lung mass which is currently being worked up. CT head shows atrophy no acute findings. 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 Cardio/Vascular: Yes: AFIB, Other (Valve replacement) - Past Surgical History Past Surgical History: Yes: CABG, Valve Replacement - Alcohol/Substance Use Hx Alcohol Use: No History of Substance Use: reports: None - Smoking History Smoking history: Former smoker Have you smoked in the past 12 months: No If you are a former smoker, when did you quit?: 20 yrs ago - Social History ADL: Independent Home Medications - Allergies Allergies/Adverse Reactions: Allergies Allergy/AdvReac Type Severity Reaction Status Date / Time No Known Allergies Allergy Unverified 06/08/16 19:48 - Home Medications Home Medications: Ambulatory Orders Apixaban [Eliquis] 2.5 mg PO BID 06/08/16 Atorvastatin Ca [Lipitor] 40 mg PO HS 06/08/16 Furosemide [Lasix] 60 mg PO DAILY 06/08/16 Metoprolol Succinate [Toprol Xl] 50 mg PO DAILY 06/08/16 Physical Exam Constitutional: Yes: No Distress, Calm Eyes: Yes: EOM Intact HENT: Yes: Atraumatic, Normocephalic Neurological: Yes: Alert, Cran Nerves II-XII Intact ...Motor Strength: WNL Assessment/Plan 85 year old man with history of atrial fibrillation on eliquis, CABG, hypertension, presents with generalized tonic clonic seizure. Patient was in the kitchen and approximately yesterday, when noted to have full body shaking lasting minutes, followed by post ictal confusion. Patients mentions its a new onset seizure, no similar episodes in the past before (note in system mentions 2 episodes of seizure?). Patient denies side effects to keppra MRI brain without contrast no acute findings, generalized volume loss Recommend Continued workup for lung mass Continue keppra 500 mg BID Consider MRI brain + contrast when kidney function normalizes given newly diagnosed lung mass (not initially done w contrast due to elevated BUN) EEG Supportive care
--- NOTE | 2016-06-10 12:58 | PN ---
Progress Note (short form) - Note Progress Note: Chief Complaint: Events noted, notes reviewed, syncope with seizure like activity, increasing dyspnea and progressive orthopnea History of Present Illness: Seen and examined on telemetry. Full consult dictated Medications: Current Medications Apixaban (Eliquis -) 2.5 mg PO BID [facility] Last Admin: 06/10/16 10:12 Dose: 2.5 mg Atorvastatin Calcium (Lipitor -) 40 mg PO HS [facility] Last Admin: 06/09/16 22:50 Dose: 40 mg Furosemide (Lasix Injection -) 40 mg IVPUSH BID@0600,1400 [facility] Last Admin: 06/10/16 06:23 Dose: 40 mg Levetiracetam (Keppra -) 500 mg PO BID [facility] Last Admin: 06/10/16 10:12 Dose: 500 mg Lorazepam (Ativan Injection -) 2 mg IVPUSH Q6H PRN PRN Reason: Seizure Metoprolol Succinate (Toprol Xl -) 50 mg PO DAILY [facility] Last Admin: 06/10/16 10:12 Dose: 50 mg Review of Systems - Review of Systems Constitutional: denies: Chills, Fever Cardiovascular: As noted above Respiratory: denies: Cough or Sputum Production Gastrointestinal: denies: Nausea, Vomiting, Diarrhea, Constipation or Abdominal Pain Neurological: As noted above Vital Signs: Last Vital Signs Temp Pulse Resp BP Pulse Ox 97.8 F 86 20 127/58 100 06/10/16 05:00 06/10/16 05:00 06/10/16 05:00 06/10/16 05:00 06/10/16 01:13 Neck: Supple Negative JVD No Bruit Respiratory: Diminished Breath Sounds at the Bases Bilaterally Cardiovascular: S1 S2 Irregularly Irregular Grade 2-3/6 SM Apical Gastrointestinal: Soft Benign Normal Bowel Sounds Ext: Negative Edema Labs: CBC, BMP 06/10/16 05:35 06/10/16 05:35 INR, PTT INR 1.47 (0.82-1.09) H 06/08/16 19:25 Assessment/Plan ASSESSMENT: 1. Clinical presentation is suggestive of neuro-cardiogenic syncope ( vasodepressor vs. cardioinhibitory) vs. sustained arrhythmia (ventricular) 2. 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 Persistent atrial fibrillation [id number] score of 5 on NOAC's 6. HTN 7. Hypercholesterolemia 8. CKD 9. Anemia and thrombocytopenia 10. Hypokalemia PLAN: 1. Continue Toprol XL 2. Add ACEI or ARBS unless contraindicated 3. Continue Lasix 4. Continue Lipitor 5. Continue Eliquis and correct dosage to 5 mg twice daily (Wt. > 60 Kg and Creatinine < 1.5) 6. Repeat chest x-ray in AM to assess clinical response 7. Echocardiography to evaluate LV size and function and MV pathology Above was reviewed in detail with the patient and his , who was at the bedside Gini Gresham M.D.
[2016-06-10] MEDS ORDERED: APIXABAN 5 MG TABLET PO SCH (13:44)
[2016-06-10] MEDS ORDERED: VALSARTAN 40 MG TABLET (FP) PO SCH (13:45)
--- NOTE | 2016-06-10 15:05 | PN ---
Progress Note (short form) - Note Progress Note: PULMONARY APPEARS COMFORTABLE IN BED NO COMPLAINTS HAS HAD EXTENSIVE WORKUP PREVIOUS VIA [facility] FOR MULTIPLE MEDICAL PROBLEMS VSS PALE/ANICTERIC DIMINISHED B/L BREATH SOUNDS BASES L>R S1S2 IRREG BS+ NONTENDER NO EDEMA CT CHEST REVIEWED AGREE THAT THERE COULD BE A MASS IN LUNG HOWEVER, WOULD START WITH THORACENTESIS FOR COMING WEEK CONTINUE ELIQUIS OVER WEEKEND SUNDAY TO ARRANGE WITH IR FOR THORACENTESIS SUNDAY WOULD NEED TO HOLD ELIQUIS SUNDAY DIFFICULT TO DETERMINE WETHER PATIENT HAD TRUE SEIZURE(NO PREV HX) MRI NOTED AWAIT EEG DISCUSSED WITH CARDIOLOGY Sami PUGH MD
[2016-06-10] MEDS ORDERED: POTASSIUM CHLORIDE 40 MEQ/30 ML UNIT DOSE CUP PO ONE (15:09)
--- NOTE | 2016-06-10 15:16 | CONS ---
DATE OF CONSULTATION: 06/10/2016 REQUESTED BY: Hospitalist. CHIEF COMPLAINT: Questionable seizure disorder, syncopal episode, progressive dyspnea and orthopnea. History was predominantly obtained from the and the patient directly. An 85-year-old male with known history of coronary artery disease, status post re-operative coronary bypass grafting, angina pectoris, diastolic left ventricular dysfunction with chronic class 1 to 2 [place] Heart Association classification left ventricular failure, mitral valve disease, mitral valve regurgitation post failed repair, persistent atrial fibrillation on chronic anticoagulation therapy with NOAC, hypertensive cardiovascular disease, and hypercholesterolemia, who presented to [facility] after he was witnessed by the to have a syncopal episode with associated seizure-like activity. EMS was contacted immediately and there was a recurrent episode in transport. The patient in addition has been reporting increasing dyspnea with minimal physical exertion and orthopnea. The patient denied any paroxysmal nocturnal dyspnea. The patient denied any chest discomfort. The patient denied any peripheral edema. No reported palpitations. Upon evaluation in the emergency room the patient was noted to have an abnormal chest x-ray and subsequently CT scan of the chest revealed questionable evidence of metastatic disease with pleural effusion. CT of the head and MRI of the brain were performed the results of which were noted. PAST MEDICAL HISTORY: Coronary artery disease status post re-operative coronary artery bypass grafting, angina pectoris, diastolic left ventricular dysfunction with chronic class 1 to 2 [place] Heart Association classification left ventricular failure, mitral valve disease, mitral valve regurgitation, post failed repair, persistent atrial fibrillation on chronic anticoagulation therapy with NOAC, hypertensive cardiovascular disease, hypercholesterolemia, and history of chronic anemia and thrombocytopenia. SOCIAL HISTORY: Prior history of smoking. FAMILY HISTORY: Positive coronary artery disease. ALLERGIES: None reported. MEDICATIONS: Medical therapy currently includes: Eliquis 2.5 mg twice a day, Lipitor 40 mg once a day, Lasix 40 mg IV push twice a day, Keppra 500 mg twice a day, Ativan 2 mg every 6 hours as needed, and Toprol XL 50 mg once a day. REVIEW OF SYSTEMS: Head and Neck: Denies headache, photophobia, or blurring of vision. Respiratory: No cough or sputum production. Cardiovascular: As noted above. Gastrointestinal: Denies nausea, vomiting, diarrhea, or abdominal discomfort. Genitourinary: No symptoms reported. Musculoskeletal: No symptoms reported. PHYSICAL EXAMINATION: Vital Signs: Blood pressure of 127/58 mmHg. Pulse rate of 86 beats per minute and regular. Head and Neck: Pupils are equal and reactive to light and accommodation. Extraocular movements are intact. Anicteric sclerae. Positive JVD. No bruit appreciated. Chest: Diminished breath sounds at the bases bilaterally with bilateral scattered rhonchi. Cardiovascular: S1, S2 irregularly irregular. Grade 2 to 3 over 6 systolic apical murmur. No clicks or gallops. Abdomen: Soft, benign with normoactive bowel sounds. Extremities: Negative edema. Diminished distal pulses. No calf tenderness. DIAGNOSTIC DATA: Electrocardiogram reveals atrial fibrillation with premature ventricular contractions and complete left bundle branch block. Chest x-ray and CT scan of the chest reports were noted. CBC revealed white cell count of 9.6, hemoglobin of 9.8, and platelet count of 102. Basic metabolic profile revealed a sodium of 144, potassium of 3.3, BUN Of 20, creatinine of 1.1, and glucose of 119. INR of 1.47. ASSESSMENT: 1. Clinical presentation is suggestive of neurocardiogenic syncope vasodepressor versus coronary inhibitory versus sustained arrhythmia possible ventricular. 2. Diastolic left ventricular dysfunction with class 2 to 3 [place] Heart Association classification left ventricular failure. 3. Coronary artery disease post re-operative coronary artery bypass grafting angina pectoris. 4. Mitral valve disease, mitral valve regurgitation post failed repair exacerbating the above-noted presentation. 5. Persistent atrial fibrillation CHADS 2 vascular of 5 on new oral anticoagulation Eliquis. 6. Hypertensive cardiovascular disease. 7. Hypercholesterolemia. 8. Chronic kidney disease. 9. Anemia and thrombocytopenia. 10. Hypokalemia. PLAN: 1. Continuation of Toprol XL therapy. 2. Addition of ALEXX inhibitor, angiotensin receptor teresa therapy unless contraindicated. 3. Continue Lasix intravenously. 4. Continuation of statin therapy. 5. Continuation of Eliquis therapy and correction of dosage to 5 mg twice daily since the weight is greater than 60 kg and creatinine is less than 1.5. 6. Repeat chest x-ray in a.m. to assess clinical response to above therapy. 7. Echocardiography for evaluation of left ventricular size and function and the above-noted mitral valve pathology. The above was reviewed in detail with the patient and his who was at the bedside. Thank you for the kind referral. ALLEN MARMOLEJO M.D. [id number] MTDD
--- NOTE | 2016-06-10 15:41 | PN ---
Teaching Attending Note Name of Resident: Luca Naranjo ATTENDING PHYSICIAN STATEMENT I saw and evaluated the patient. I reviewed the resident's note and discussed the case with the resident. I agree with the resident's findings and plan as documented. SUBJECTIVE: no fever or chills, no abd pain. denies any SOB. OBJECTIVE: AD , awake , alert , oriented to self and place CV: irreg irreg today , no murmurs appreciated. JVD noted on both sides Lungs: fine crackles half way down both lungs Ext : no edema ASSESSMENT AND PLAN: 85 y/o gentleman with h/o A fib, HTN , CAD , valve replacement who presented after an onset of seizure like activity 1-Seizure like activity: Agree with Dr. Sprague for possible neurocardiogenic etiology of his syncope . also cheikh is still in DDx - MRI of brain without contrast , showed no etiology . - obtain MRI with contrast. elevated BUN is not a contraindication for gadolinium - cont Keppra. - EEG pending 2- Acute hypoxic resp failure: due to Acute CHF exacerbation and possible contributing ILD, possible lung cancer - cont lasix . - was not o n ALEXX due to cough. will see how he does on ARB - cont BB - echo pending 3- Lung masses : could be malignancy ( lung cancer vs Mets) , also could be sarcoidosis . - check ALEXX level - no evidence of masses in abd/pelvis or in brain so far - thoracocentesis for cytology , on Sunday. will hold eliquis tomorrow - pt and family understand the high risk of stroke while holding eliquis . - Onc c/s 4- H/o A fib: no h/o stroke. - cont metoprolol - cont eliquis , will hold tomorrow ( d/w Dr. Helms , 24 hr hold is enough for such procedure ) 5- Hypokalmeia replete 6- DVT PX : place SCDs while holding eliquis
[2016-06-10] MEDS ORDERED: POTASSIUM CHLORIDE 40 MEQ/30 ML UNIT DOSE CUP ONE (17:22)
[2016-06-10] MEDS: ATORVASTATIN CA 40 MG TABLET (FP) PO SCH (21:30)
[2016-06-11 01:20] LABS: URINE APPEARANCE CLOUDY; URINE BILIRUBIN NEGATIVE (NEGATIVE); URINE COLOR YELLOW; URINE GLUCOSE (UA) NEGATIVE (NEGATIVE); URINE KETONE NEGATIVE (NEGATIVE); URINE NITRITE NEGATIVE (NEGATIVE); URINE UROBILINOGEN NEGATIVE E.U./dl (0.2-1.0)
[2016-06-11] MEDS ORDERED: ACETAMINOPHEN 325 MG TABLET (FP) PO ONE (01:21)
[2016-06-11 01:49] LABS: URINE BLOOD 3+ (NEGATIVE); URINE LEUK ESTERASE 3+ (NEGATIVE); URINE PROTEIN 1+ (NEGATIVE)
[2016-06-11 01:52] LABS: URINE BACTERIA MODERATE /hpf (NONE SEEN); URINE HYALINE CAST 30 /lpf; URINE MUCUS RARE; URINE RBC 31 /hpf (0-3); URINE WBC 213 /hpf (3-5)
--- NOTE | 2016-06-11 05:24 | HOSP ---
Addendum entered and electronically signed by Karol Christianson RES 06/11/16 05:33 : Correction: Patient's temperature was 97.2 F and blood pressure was 86/43 with a heart rate of 67 BPM Addendum entered and electronically signed by Karol Christianson RES 06/11/16 05:25 : Patient's U/A revealed 3+ Leukocyte esterase with moderate urine bacteria and > 200 urine WBC. Patient's blood pressure remains low with BP readings in the 90' s/60's. PLAN -Ceftriaxone 1gm daily started for urinary tract infection -D/C Sorenson -IV Normal Saline @250mls/hr over two hours started for low blood pressure. Patient's last chest x-ray revealed cardiomegaly with mild congestion and is on Lasix, therefore light fluids to help with the blood pressure -Urine cultures pending. Patient has no previous visit here at [facility] therefore no history of cultures with sensitivities and resistance on file. Original Note: Physical Examination Vital Signs: Vital Signs Temperature 97.2 F L 06/11/16 01:52 Pulse Rate 67 06/11/16 01:52 Respiratory Rate 20 06/11/16 01:52 Blood Pressure 86/43 06/11/16 01:52 O2 Sat by Pulse Oximetry (%) 94 L 06/10/16 21:00 Labs: CBC, BMP 06/10/16 05:35 06/10/16 05:35 Hospitalist Encounter Assessment: Notified by the RN that patient was complaining of lower abdominal pain radiating to his penis. On arrival patient was in mild distress and complaining of suprapubic pain and tenderness. When asked if he has a burning sensation when urinating patient states he does not know. Sorenson had no hematuria or urine discoloration. Bladder scan done, which revealed no urinary retention. Patient requested medication for the pain. Patient's temperature was 97.2 F and blood pressure was 86/43 with a heart rate PLAN -Tylenol 650mg Once for pain -U/A and culture sent to rule out UTI -Hold Lasix, Valsartan and Toprol XL due to low blood pressure and continue to monitor Visit type - Emergency Visit Emergency Visit: No - New Patient This patient is new to me today: Yes Date on this admission: 06/11/16 - Critical Care Critical Care patient: No
[2016-06-11] MEDS: SODIUM CHLORIDE 250 ML IV STA ×2 (07:00→19:23)
[2016-06-11 07:21] LABS: BASOPHIL 0.4 % (0-2.0); EOSINOPHIL 0.8 % (0-4.5); MCH 30.6 pg (25.7-33.7); MCHC 33.2 g/dl (32.0-35.9); MEAN CELL VOLUME 92.2 fl (80-96); MEAN PLT VOLUME 8.8 fl (7.5-11.1); NEUTROPHILS 76.9 % (42.8-82.8); PLATELET COUNT 92 K/MM3 (134-434); RDW 18.3 % (11.9-15.9); WHITE BLOOD COUNT 9.8 K/mm3 (4.0-10.0)
[2016-06-11 08:08] LABS: CALCIUM 8.4 mg/dL (8.5-10.1)
[2016-06-11 08:11] LABS: CREATININE 1.5 mg/dL (0.7-1.3)
[2016-06-11] MEDS: cefTRIAXone 1 GM/50 ML BAG (PRE-DOCKED) IVPB SCH (09:40)
[2016-06-11] MEDS: levETIRAcetam 500 MG TABLET (FP) PO SCH ×2 (09:41→21:18)
--- NOTE | 2016-06-11 09:42 | EKG ---
Test Reason : Blood Pressure : / mmHG Vent. Rate : 084 BPM Atrial Rate : 102 BPM P-R Int : 000 ms QRS Dur : 172 ms QT Int : 446 ms P-R-T Axes : 000 040 173 degrees QTc Int : 527 ms POOR DATA QUALITY, INTERPRETATION MAY BE ADVERSELY AFFECTED ATRIAL FIBRILLATION WITH PREMATURE VENTRICULAR OR ABERRANTLY CONDUCTED COMPLEXES LEFT BUNDLE BRANCH BLOCK ABNORMAL ECG WHEN COMPARED WITH ECG OF 08-JUN-2016 19:55, NO SIGNIFICANT CHANGE WAS FOUND Confirmed by KATIE MILIAN MD ([id number]) on 06/11/2016 9:41:50 AM Referred By: Confirmed By:KATIE MILIAN MD
[2016-06-11] MEDS ORDERED: CEFTRIAXONE 1 GM in DEXTROSE 5%-WATER - 100 ML IVPB SCH (10:00)
--- NOTE | 2016-06-11 10:45 | PN ---
Progress Note (short form) - Note Progress Note: Chief Complaint: Events noted, notes reviewed, dyspnea persists but improved, denies any chest discomfort History of Present Illness: Seen and examined on telemetry. Events noted, notes reviewed, dyspnea persists but improved, denies any chest discomfort Hypotension in view of which therapies withheld Chest x-ray from this AM noted persistent infiltrates Medications: Current Medications Apixaban (Eliquis -) 5 mg PO BID [facility] Last Admin: 06/10/16 21:30 Dose: 5 mg Atorvastatin Calcium (Lipitor -) 40 mg PO HS [facility] Last Admin: 06/10/16 21:30 Dose: 40 mg Ceftriaxone Sodium (Rocephin 1gm Ivpb (Pre-Docked)) 1 gm IVPB DAILY [facility] Last Admin: 06/11/16 09:40 Dose: 1 gm Furosemide (Lasix Injection -) 40 mg IVPUSH BID@0600,1400 [facility] Last Admin: 06/10/16 13:49 Dose: 40 mg Levetiracetam (Keppra -) 500 mg PO BID [facility] Last Admin: 06/11/16 09:41 Dose: 500 mg Lorazepam (Ativan Injection -) 2 mg IVPUSH Q6H PRN PRN Reason: Seizure Metoprolol Succinate (Toprol Xl -) 50 mg PO DAILY [facility] Last Admin: 06/10/16 10:12 Dose: 50 mg Valsartan (Diovan -) 40 mg PO DAILY [facility] Last Admin: 06/10/16 14:15 Dose: 40 mg Review of Systems - Review of Systems Constitutional: denies: Chills, Fever Cardiovascular: As noted above Respiratory: denies: Cough or Sputum Production Gastrointestinal: denies: Nausea, Vomiting, Diarrhea, Constipation or Abdominal Pain Neurological: As noted above Vital Signs: Last Vital Signs Temp Pulse Resp BP Pulse Ox 97.7 F 75 20 99/58 100 06/11/16 07:51 06/11/16 07:51 06/11/16 07:51 06/11/16 07:51 06/11/16 07:53 Neck: Supple Negative JVD No Bruit Respiratory: Diminished Breath Sounds at the Bases Bilaterally Cardiovascular: S1 S2 Irregularly Irregular Grade 2-3/6 SM Apical Gastrointestinal: Soft Benign Normal Bowel Sounds Ext: Negative Edema Labs: CBC, BMP 06/11/16 05:35 06/11/16 05:35 Assessment/Plan ASSESSMENT: 1. Clinical presentation is suggestive of neuro-cardiogenic syncope ( vasodepressor vs. cardioinhibitory) vs. sustained arrhythmia (ventricular) 2. Diastolic LV dysfunction with class II NYHA classification LV failure 3. 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 Persistent atrial fibrillation [id number] score of 5 on NOAC's 6. HTN 7. Hypercholesterolemia 8. CKD 9. Anemia and thrombocytopenia PLAN: 1. Continue Toprol XL hemodynamics permitting 2. Continue Diovan hemodynamics permitting 3. Continue Lasix 4. Continue Lipitor 5. Continue Eliquis at the current dose (Wt. > 60 Kg and Creatinine < 1.5) 6. Echocardiography to evaluate LV size and function and MV pathology 7. Plan to proceed with thoracentesis for further evaluation of pleural effusion , to be discussed with the pulmonary team Gini Gresham M.D.
[2016-06-11] MEDS ORDERED: VALSARTAN 40 MG TABLET (FP) PO SCH (11:04)
[2016-06-11] MEDS ORDERED: METOPROLOL SUCCINATE 50 MG TAB.SR.24H (FP) PO SCH (11:04)
--- NOTE | 2016-06-11 11:40 | PN ---
Progress Note (short form) - Note Progress Note: Subjective: no fever or chills, feels tired. Denies abd pain now. Over night complained of ABd pain, UA was done and CTX was started. He was hypotensive and was given 200 cc of IVF Objective: Vital Signs: Last Vital Signs Temp Pulse Resp BP Pulse Ox 97.7 F 75 20 99/58 100 06/11/16 07:51 06/11/16 07:51 06/11/16 07:51 06/11/16 07:51 06/11/16 07:53 Physical Exam: AD , awake , alert , oriented to self and place CV: irreg irreg, 2/6 SM at apix and LLSB. Lungs: minimal crackles at bases today Ext : no edema ABd : soft, NT, ND , NL BS Jacqueline Sorenson in ASSESSMENT AND PLAN: 85 y/o gentleman with h/o A fib, HTN , CAD , valve replacement who presented after an onset of seizure like activity. He was found to have acute CHF and lung masses . 1-Seizure like activity: in DDx is convulsive vasovagal syncop - MRI of brain with and without contrast , showed no etiology . ( old cerebellar infarct ) - will d/w Neuro the actual need for anti-epileptic meds. - EEG pending 2- Acute hypoxic resp failure: due to Acute CHF exacerbation and possible contributing ILD, possible lung cancer - Due to hypotension last night and ALBA . Will hold lasix, BB , and ARB for now and monitor. - echo pending 3- Lung masses : could be malignancy ( lung cancer vs Mets) , also could be sarcoidosis . - ALEXX level pending - ALready scheduled pt for thoracentesis for cytology , on Sunday. Eliquis being held today for procedure tomorrow - Onc c/s 4- H/o A fib: - HOlding BB due to hypotension , will resume once appropriate - holding eliquis for procedure tomorrow. SPoke to Dr. Jefferson. 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 5- Hypokalmeia : monitor 6- DVT PX : SCDs while holding eliquis Visit type - Emergency Visit Emergency Visit: Yes ED Registration Date: 06/09/16 Care time: The patient presented to the Emergency Department on the above date and was hospitalized for further evaluation of their emergent condition. - New Patient This patient is new to me today: No - Critical Care Critical Care patient: No
--- NOTE | 2016-06-11 12:19 | PN ---
Progress Note (short form) - Note Progress Note: History of Present Illness: 06/11 Spoke at length with and family at bedside Discussed that it is difficult to ascertain if his symptoms were truely syncope or seizure, given his cardiac history syncope is high on differential but seizure can not be ruled out based on history. As he had two events recommended a low dose of keppra which could be adjusted once outpatient. Discussed findings of MRI brain with contrast- no acute abnormality, old stroke seen and EEG- abnormal, diffuse slowing, no seizure. 06/10 Patient seen and examined at bedside. Denies any side effects to starting keppra MRI brain reviewed, shows generalized volume loss, no acute findings 85 year old man with history of atrial fibrillation on eliquis, CABG, hypertension, presents with generalized tonic clonic seizure. Patient was in the kitchen, when noted to have full body shaking lasting minutes, followed by post ictal confusion. No similar episodes in the past before, notes mention a second episode en transit to hospital. 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 Cardio/Vascular: Yes: AFIB, Other (Valve replacement) - Past Surgical History Past Surgical History: Yes: CABG, Valve Replacement - Alcohol/Substance Use Hx Alcohol Use: No History of Substance Use: reports: None - Smoking History Smoking history: Former smoker Have you smoked in the past 12 months: No If you are a former smoker, when did you quit?: 20 yrs ago - Social History ADL: Independent Home Medications - Allergies Allergies/Adverse Reactions: Allergies Allergy/AdvReac Type Severity Reaction Status Date / Time No Known Allergies Allergy Unverified 06/08/16 19:48 - Home Medications Home Medications: Ambulatory Orders Apixaban [Eliquis] 2.5 mg PO BID 06/08/16 Atorvastatin Ca [Lipitor] 40 mg PO HS 06/08/16 Furosemide [Lasix] 60 mg PO DAILY 06/08/16 Metoprolol Succinate [Toprol Xl] 50 mg PO DAILY 06/08/16 Physical Exam Constitutional: Yes: No Distress, Calm Eyes: Yes: EOM Intact HENT: Yes: Atraumatic, Normocephalic Neurological: Yes: Appears more sedated today, Cran Nerves II-XII Intact ...Motor Strength: WNL Assessment/Plan 85 year old man with history of atrial fibrillation on eliquis, CABG, hypertension, presents with neurocardiogenic syncope vs generalized tonic clonic seizure. Patient was in the kitchen, when noted to have full body shaking lasting minutes, followed by post ictal confusion. No similar episodes in the past before, notes mention a second episode en transit to hospital. MRI brain without contrast no acute findings, generalized volume loss MRI brain with contrast no acute findings, old stroke seen EEG slowing, no seizure Recommend Continue keppra for now Seizure precautions Supportive care
--- NOTE | 2016-06-11 12:40 | PN ---
Progress Note (short form) - Note Progress Note: PULMONARY DIFFICULT TO AROUSE EARLIER NOW SITTING UP IN BED EATING FAMILY PRESENT HAS HAD EXTENSIVE WORKUP PREVIOUS VIA [facility] FOR MULTIPLE MEDICAL PROBLEMS VSS PALE/ANICTERIC DIMINISHED B/L BREATH SOUNDS BASES L>R S1S2 IRREG BS+ NONTENDER NO EDEMA CT CHEST REVIEWED THORACENTESIS FOR COMING WEEK CONTINUE ELIQUIS OVER WEEKEND SUNDAY TO ARRANGE WITH IR FOR THORACENTESIS SUNDAY WOULD NEED TO HOLD ELIQUIS SUNDAY DIFFICULT TO DETERMINE WETHER PATIENT HAD TRUE SEIZURE(NO PREV HX) MRI NOTED AWAIT EEG DISCUSSED WITH CARDIOLOGY Sami PUGH MD
[2016-06-11] MEDS: ATORVASTATIN CA 40 MG TABLET (FP) PO SCH (21:18)
[2016-06-12 07:23] LABS: BASOPHIL 0.3 % (0-2.0); EOSINOPHIL 1.5 % (0-4.5); MCH 30.9 pg (25.7-33.7); MCHC 33.4 g/dl (32.0-35.9); MEAN CELL VOLUME 92.3 fl (80-96); MEAN PLT VOLUME 8.6 fl (7.5-11.1); NEUTROPHILS 78.7 % (42.8-82.8); PLATELET COUNT 87 K/MM3 (134-434); RDW 17.9 % (11.9-15.9); WHITE BLOOD COUNT 8.5 K/mm3 (4.0-10.0)
--- NOTE | 2016-06-12 08:01 | PN ---
Physical Exam: SUBJECTIVE: Patient seen and examined sleeping comfortably. no repeat episodes of seizure like activity. feels well. denies chest pain, shortness of breath, dyuria, hematuria, constipation, lightheadedness, palpitations, abdominal pain. OBJECTIVE: Vital Signs Period Temp Pulse Resp BP Sys/Low Pulse Ox Last 24 Hr 97.7 F-98.4 F 72-88 16-20 98-116/43-62 100 GENERAL: The patient is awake, alert, and in no acute distress. EYES; fixed pupillary defect b/l due to cataracts, mydriasis. vision grossly intact. denies eye pain, blurry vision, floaters. NECK: Trachea midline, full range of motion, supple. LUNGS: Breath sounds equal, clear to auscultation bilaterally, no wheezes, no crackles, no accessory muscle use. breathing with nasal cannula. HEART: afib, S1, S2. ABDOMEN: Soft, nontender, nondistended, normoactive bowel sounds, no guarding, no rebound, no suprapubic tenderness. EXTREMITIES: 2+ pulses, warm, well-perfused, no edema. NEUROLOGICAL: Normal speech, gait not observed. fully oriented. PSYCH: Normal mood, normal affect. SKIN: Warm, dry, normal turgor, no rashes or lesions noted Laboratory Results - last 24 hr 06/11/16 06/12/16 05:35 05:35 WBC 8.5 RBC 3.01 L Hgb 9.3 L Hct 27.8 L MCV 92.3 MCHC 33.4 RDW 17.9 H Plt Count 87 L MPV 8.6 Neutrophils % 78.7 Lymphocytes % 11.2 Monocytes % 8.3 Eosinophils % 1.5 D Basophils % 0.3 Sodium 142 Potassium 3.7 Chloride 99 Carbon Dioxide 32 Anion Gap 11 BUN 25 H D Creatinine 1.5 H D Random Glucose 111 H Calcium 8.4 L Active Medications Generic Name Dose Route Start Last Admin Trade Name Freq PRN Reason Stop Dose Admin Apixaban 5 mg 06/10/16 13:44 06/10/16 21:30 Eliquis - PO 5 mg BID SANDIE Administration Atorvastatin Calcium 40 mg 06/09/16 22:00 06/11/16 21:18 Lipitor - PO 40 mg HS SANDIE Administration Ceftriaxone Sodium 1 gm 06/11/16 10:00 06/11/16 09:40 Rocephin 1gm Ivpb (Pre-Docked) IVPB 1 gm DAILY SANDIE Administration Furosemide 40 mg 06/10/16 06:00 06/10/16 13:49 Lasix Injection - IVPUSH 40 mg BID@0600,1400 SANDIE Administration Levetiracetam 500 mg 06/09/16 22:00 06/11/16 21:18 Keppra - PO 500 mg BID SANDIE Administration Lorazepam 2 mg 06/09/16 01:58 Ativan Injection - IVPUSH Q6H PRN Seizure Metoprolol Succinate 50 mg 06/11/16 11:04 Toprol Xl - PO DAILY SANDIE ASSESSMENT/PLAN: 85 year old male with HTN, Afib (on Eliquis), s/p CABG and mitral valve replacement BIBEMS for one episode of new onset seizure at home. - episode of abdominal pain radiating to penis yesterday 5AM, sorensen removed, u/ a positive for UTI, ucx pending likely e.coli. rocephin started. also afebrile, BP low, given bolus which improved BP. - discussed with mike Jones to continue eliquis tonight. #Abnormal Chest CT, r/o malignancy, possible sarcoidosis given calcified lymph nodes and ILD findings on CT - Dr. Patricio consulted for Pulmonary - received thoracosentesis today with hemorrhagic fluid removed 135mL, chest xray post neg for pneumo --fluid studies for cytology, culture, LDH, protein, white blood cell count pending - abd/pelvis CT negative for masses - ALEXX level pending to r/o sarcoidosis #New onset seizure - no repeat episodes - elevate HOB 30-50 degrees to avoid aspiration, neuro checks - Ativan IV 2mg PRN - keppra 500mg po bid - dr. Hirsch, Neurology consult - EEG read generalized slowing, no seizure activity - Darius MRI without contrast negative for acute pathology - Brain MRI with contrast shows small chronic right cerebellum hemispheric infarct, no acute pathology #UTI, will treat for three days. - rocephin 1gm daily -- started 06/11 #Acute CHF - lasix 40mg po qd - echo pending - Dr. Waddell consulted - no IVF - chest xray in the AM #Acute hypoxia, caused by CHF vs ILD - continous nasal cannula 2lpm, will consider bipap if needed # HTN - controlled - toprol 50mg po daily, changed to metoprolol tart 12.5po bid given low BP - Valsartan 40mg po daily - held due to low BP #CAD s/p CABG - lipitor 40mg HS #Afib - controlled - eliquis 5 BID, restart tonight # DVT-SCD's, on eliquis # Code Status-Full Code Visit type - Emergency Visit Emergency Visit: No - New Patient This patient is new to me today: No - Critical Care Critical Care patient: No
[2016-06-12 08:10] LABS: CALCIUM 8.4 mg/dL (8.5-10.1); CREATININE 1.1 mg/dL (0.7-1.3)
--- NOTE | 2016-06-12 08:50 | PN ---
Teaching Attending Note Name of Resident: Luca Naranjo ATTENDING PHYSICIAN STATEMENT I saw and evaluated the patient. I reviewed the resident's note and discussed the case with the resident. I agree with the resident's findings and plan as documented. SUBJECTIVE: No events over night . Denies CP or SOB , had no palpitations. OBJECTIVE: NAD , awake , alert , oriented to self and place CV: irreg irreg, 2/6 SM at apix and LLSB. JVD noted Lungs: no crackles appreciate this am Ext : no edema ABd : soft, NT, ND , NL BS Jacqueline Sorenson in ASSESSMENT AND PLAN: 85 y/o gentleman with h/o A fib, HTN , CAD , valve replacement who presented after an onset of seizure like activity. He was found to have acute CHF and lung masses . 1-Seizure like activity: d/w Neuro , had 2 episodes of seizure like activity ( home and In AMbulance ) - MRI of brain with and without contrast , showed no etiology . ( old cerebellar infarct ) - D/W neuro , Recs to cont keppra - EEG per neuro prelim read , generalized slowing . 2- Acute hypoxic resp failure: due to Acute CHF exacerbation and possible contributing ILD, possible lung cancer - lasix was held yesterday due to hypotension and ALBA . can resume today with caution ( can give orally ) . - cont ot hold ARB, and can resume BB with caution - echo pending 3- Lung masses : could be malignancy ( lung cancer vs Mets) , also could be sarcoidosis . - ALEXX level pending - Already scheduled pt for thoracentesis today , confirmed with IR this am . Eliquis was held in past 24 hr - Onc c/s pending 4- H/o A fib: - will resume BB with holding parameters today - holding eliquis for procedure today . will resume in evening . If procedure get canceled for any reason , will start heparin gtt. 5- Hypokalmeia : monitor 6- ALBA , resolved 7- DVT PX : SCDs while holding eliquis HLOC
[2016-06-12] MEDS: cefTRIAXone 1 GM/50 ML BAG (PRE-DOCKED) IVPB SCH (09:57)
--- NOTE | 2016-06-12 10:33 | PN ---
Progress Note (short form) - Note Progress Note: Patient is planned for thoracentesis a low risk procedure, given CrCl>30, recommendation is to hold apixiban for 24 hours prior to procedure which was done starting yesterday. Consequently, patient may proceed with thoracentesis today.
--- NOTE | 2016-06-12 11:14 | PN ---
Progress Note, Physician History of Present Illness: pulmonary alert,oob-chair,-sob. - Current Medication List Current Medications: Active Medications Apixaban (Eliquis -) 5 mg PO BID [facility] Last Admin: 06/10/16 21:30 Dose: 5 mg Atorvastatin Calcium (Lipitor -) 40 mg PO HS [facility] Last Admin: 06/11/16 21:18 Dose: 40 mg Ceftriaxone Sodium (Rocephin 1gm Ivpb (Pre-Docked)) 1 gm IVPB DAILY [facility] Last Admin: 06/12/16 09:57 Dose: 1 gm Furosemide (Lasix -) 40 mg PO DAILY@1400 SANDIE Levetiracetam (Keppra -) 500 mg PO BID [facility] Last Admin: 06/11/16 21:18 Dose: 500 mg Lorazepam (Ativan Injection -) 2 mg IVPUSH Q6H PRN PRN Reason: Seizure Metoprolol Tartrate (Lopressor -) 12.5 mg PO BID [facility] - Objective Vital Signs: Vital Signs Temperature 97.4 F L 06/12/16 09:02 Pulse Rate 86 06/12/16 09:02 Respiratory Rate 18 06/12/16 09:02 Blood Pressure 120/56 06/12/16 09:02 O2 Sat by Pulse Oximetry (%) 100 06/11/16 21:00 Constitutional: Yes: Well Nourished, Calm Eyes: Yes: WNL HENT: Yes: WNL Neck: Yes: WNL Cardiovascular: Yes: Pulse Irregular, S1, S2 Respiratory: Yes: CTA Bilaterally (bibasilar crackles), Rales Gastrointestinal: Yes: WNL Extremities: Yes: WNL Edema: No Labs: CBC, BMP 06/12/16 05:35 06/12/16 05:35 INR, PTT INR 1.47 (0.82-1.09) H 06/08/16 19:25 Assessment/Plan Problem List - Problems (1) Altered mental status Code(s): R41.82 - ALTERED MENTAL STATUS, UNSPECIFIED Qualifiers: Altered mental status type: unspecified Qualified Code(s): R41.82 - Altered mental status, unspecified (2) Pulmonary mass Code(s): R91.8 - OTHER NONSPECIFIC ABNORMAL FINDING OF LUNG FIELD (3) Seizures Code(s): R56.9 - UNSPECIFIED CONVULSIONS (4) Pleural effusion Code(s): J90 - PLEURAL EFFUSION, NOT ELSEWHERE CLASSIFIED (5) Atrial fibrillation Code(s): I48.91 - UNSPECIFIED ATRIAL FIBRILLATION Assessment/Plan PLAN: O2 as needed thoracentesis Seizure precautions Dr Sánchez
[2016-06-12] MEDS: levETIRAcetam 500 MG TABLET (FP) PO SCH ×3 (11:41→21:51)
--- NOTE | 2016-06-12 12:55 | PN ---
Progress Note, Physician Chief Complaint: Generalized weakness Await thoracentesis History of Present Illness: Patient was seen and examined. Awake and alert. Chart was reviewed Denies chest pain or palpitation. Breathing normally on O2 via NC - Current Medication List Current Medications: Active Medications Apixaban (Eliquis -) 5 mg PO BID [facility] Last Admin: 06/10/16 21:30 Dose: 5 mg Atorvastatin Calcium (Lipitor -) 40 mg PO HS [facility] Last Admin: 06/11/16 21:18 Dose: 40 mg Ceftriaxone Sodium (Rocephin 1gm Ivpb (Pre-Docked)) 1 gm IVPB DAILY [facility] Last Admin: 06/12/16 09:57 Dose: 1 gm Furosemide (Lasix -) 40 mg PO DAILY@1400 SANDIE Levetiracetam (Keppra -) 500 mg PO BID [facility] Last Admin: 06/12/16 11:41 Dose: Not Given Lorazepam (Ativan Injection -) 2 mg IVPUSH Q6H PRN PRN Reason: Seizure Metoprolol Tartrate (Lopressor -) 12.5 mg PO BID [facility] - Objective Vital Signs: Vital Signs Temperature 97.4 F L 06/12/16 09:02 Pulse Rate 86 06/12/16 09:02 Respiratory Rate 18 06/12/16 09:02 Blood Pressure 120/56 06/12/16 09:02 O2 Sat by Pulse Oximetry (%) 100 06/11/16 21:00 Neck: Yes: Supple Cardiovascular: Yes: Pulse Irregular, Murmur (Soft apical SM), S1, S2 Respiratory: Yes: Diminished Gastrointestinal: Yes: Normal Bowel Sounds, Soft. No: Tenderness Edema: No Additional Findings/Remarks: - Review of Systems Constitutional: denies: Chills, Fever Cardiovascular: As noted above Respiratory: denies: Cough or Sputum Production Gastrointestinal: denies: Nausea, Vomiting, Diarrhea, Constipation or Abdominal Pain Neurological: As noted above Labs: CBC, BMP 06/12/16 05:35 06/12/16 05:35 Problem List - Problems (1) Atrial fibrillation Qualifiers: Atrial fibrillation type: persistent Qualified Code(s): I48.1 - Persistent atrial fibrillation (4) HTN (hypertension) Code(s): I10 - ESSENTIAL (PRIMARY) HYPERTENSION Qualifiers: Hypertension type: essential hypertension Qualified Code(s): I10 - Essential (primary) hypertension (5) Hypercholesterolemia Code(s): E78.0 - PURE HYPERCHOLESTEROLEMIA * DO NOT USE * (6) Syncope Code(s): R55 - SYNCOPE AND COLLAPSE Qualifiers: Syncope type: unspecified Qualified Code(s): R55 - Syncope and collapse (7) Diastolic dysfunction with acute on chronic heart failure Code(s): I50.33 - ACUTE ON CHRONIC DIASTOLIC (CONGESTIVE) HEART FAILURE Assessment/Plan 1. Clinical presentation is suggestive of neuro-cardiogenic syncope ( vasodepressor vs. cardioinhibitory) vs. sustained arrhythmia (ventricular) 2. Diastolic LV dysfunction with class II NYHA classification LV failure 3. CAD post re-op CABG, angina pectoris 4. 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 Persistent atrial fibrillation [id number] score of 5 on NOAC 6. HTN 7. Hypercholesterolemia 8. CKD 9. Anemia and thrombocytopenia PLAN: 1. Continue Toprol XL and Diovan hemodynamics permitting 2. Continue Lasix 3. Continue Lipitor 4. Continue Eliquis (Wt. > 60 Kg and Creatinine < 1.5), but currently held in preparation for thoracentesis today 5. Transthoracic echocardiography to evaluate LV and valvular function 6. There is no absolute contraindication in proceeding with thoracentesis in view of absence of ischemic symptoms, decompensated congestive heart failure or malignant arrhythmias. Further plans are to follow Anatoliy Blackburn MD
[2016-06-12] MEDS: FUROSEMIDE 40 MG TABLET (FP) PO SCH (16:36)
[2016-06-12 16:44] LABS: PERITONEAL FLUID LYMPHOCYTE 40 %; PERITONEAL FLUID MACROPHAGE 22 %; PERITONEAL FLUID MONOCYTE 28 %; PERITONEAL FLUID NEUTROPHIL 10 %
[2016-06-12] MEDS: METOPROLOL TARTRATE 25 MG TABLET (FP) PO SCH (21:51)
[2016-06-12] MEDS: ATORVASTATIN CA 40 MG TABLET (FP) PO SCH (21:51)
--- NOTE | 2016-06-13 07:00 | PN ---
Progress Note (short form) - Note Progress Note: Chief Complaint: Events noted, notes reviewed, dyspnea persists but improved, denies any chest discomfort History of Present Illness: Seen and examined on telemetry. Events noted, notes reviewed, dyspnea persists but improved, denies any chest discomfort Post thoracentesis yesterday result pending Chest x-ray post procedure noted Echocardiography revealed severe LV systolic dysfunction, MAC, moderate to severe MR, moderate TR with mild degree of pulmonary HTN Medications: Current Medications Apixaban (Eliquis -) 5 mg PO BID [facility] Last Admin: 06/13/16 09:39 Dose: 5 mg Atorvastatin Calcium (Lipitor -) 40 mg PO HS [facility] Last Admin: 06/12/16 21:51 Dose: 40 mg Ceftriaxone Sodium (Rocephin 1gm Ivpb (Pre-Docked)) 1 gm IVPB DAILY [facility] Last Admin: 06/13/16 09:38 Dose: 1 gm Furosemide (Lasix -) 40 mg PO DAILY@1400 [facility] Last Admin: 06/12/16 16:36 Dose: 40 mg Levetiracetam (Keppra -) 500 mg PO BID [facility] Last Admin: 06/13/16 09:39 Dose: 500 mg Lorazepam (Ativan Injection -) 2 mg IVPUSH Q6H PRN PRN Reason: Seizure Metoprolol Tartrate (Lopressor -) 12.5 mg PO BID [facility] Last Admin: 06/13/16 09:39 Dose: 12.5 mg Review of Systems - Review of Systems Constitutional: denies: Chills, Fever Cardiovascular: As noted above Respiratory: denies: Cough or Sputum Production Gastrointestinal: denies: Nausea, Vomiting, Diarrhea, Constipation or Abdominal Pain Neurological: As noted above Vital Signs: Last Vital Signs Temp Pulse Resp BP Pulse Ox 98 F 78 18 104/50 96 06/13/16 08:33 06/13/16 08:33 06/13/16 08:33 06/13/16 08:33 06/12/16 21:00 Neck: Supple Negative JVD No Bruit Respiratory: Diminished Breath Sounds at the Bases Bilaterally Cardiovascular: S1 S2 Irregularly Irregular Grade 2-3/6 SM Apical Gastrointestinal: Soft Benign Normal Bowel Sounds Ext: Negative Edema Labs: CBC, BMP 06/13/16 06:06 06/12/16 05:35 Assessment/Plan ASSESSMENT: 1. Systolic/diastolic LV dysfunction with chronic class II NYHA classification LV failure, acute on chronic 2. Neuro-cardiogenic syncope (vasodepressor vs. cardioinhibitory) vs. sustained arrhythmia (ventricular) 3. CAD post re-op CABG, angina pectoris 4. MV disease MV regurgitation post failed repair, moderate to severe MR 5. Moderate degree of TR with mild dgeree of pulmonary HTN 6. Persistent atrial fibrillation [id number] score of 5 on NOAC's 7. HTN 8. Hypercholesterolemia 9. CKD 10. Anemia and thrombocytopenia PLAN: 1. Continue Lopressor hemodynamics permitting 2. Resume Diovan hemodynamics permitting 3. Resume Lasix with close monitoring of renal function 4. Continue Lipitor 5. Continue Eliquis at the current dose (Wt. > 60 Kg and Creatinine < 1.5) 6. Await thoracentesis fluid results, pathology/cytology Above to be reviewed with his primary outside operator at [facility] [place], Dr. Americo Gresham M.D.
[2016-06-13 08:02] LABS: BASOPHIL 0.5 % (0-2.0); MCH 30.4 pg (25.7-33.7); MCHC 33.3 g/dl (32.0-35.9); MEAN CELL VOLUME 91.5 fl (80-96); MEAN PLT VOLUME 8.6 fl (7.5-11.1); NEUTROPHILS 73.4 % (42.8-82.8); PLATELET COUNT 92 K/MM3 (134-434); RDW 17.7 % (11.9-15.9); WHITE BLOOD COUNT 7.5 K/mm3 (4.0-10.0)
[2016-06-13 08:14] LABS: INR 1.26 (0.82-1.09); PROTHROMBIN TIME (PATIENT) 13.9 SEC (9.98-11.88)
--- NOTE | 2016-06-13 08:57 | PN ---
Physical Exam: SUBJECTIVE: Patient seen and examined no complaints. denies chest pain, SOB, headache. OBJECTIVE: Vital Signs Period Temp Pulse Resp BP Sys/Low Pulse Ox Last 24 Hr 97 F-98.3 F 72-89 18-20 100-135/41-69 96-96 GENERAL: The patient is awake, alert, and in no acute distress. EYES; fixed pupillary defect b/l due to cataracts, mydriasis. vision grossly intact. LUNGS: Breath sounds equal, clear to auscultation bilaterally, no wheezes, no crackles, no accessory muscle use. breathing with nasal cannula, 3lpm HEART: afib, S1, S2. ABDOMEN: Soft, nontender, nondistended, normoactive bowel sounds BACK: right lower back with thoracocentesis site covered with tegaderm, nontender, nonerythematous. EXTREMITIES: 2+ pulses, warm, well-perfused, no edema. NEUROLOGICAL: Normal speech. fully oriented. PSYCH: Normal mood, normal affect. SKIN: Warm, dry, normal turgor, no rashes or lesions noted Laboratory Results - last 24 hr 06/11/16 06/12/16 06/12/16 05:35 05:35 05:35 WBC RBC Hgb Hct MCV MCHC RDW Plt Count MPV Neutrophils % Lymphocytes % Monocytes % Eosinophils % Basophils % INR LD Total 166 Cancelled Angiotensin Convert Enz 17 Peritoneal WBC Peritoneal RBC Periton Neutrophils Periton Lymphocytes Peritoneal Monocytes Periton Macrophages Peritoneal Tot Protein Peritoneal Albumin Peritoneal LDH Peritoneal Glucose Peritoneal Amylase Peritoneal Triglycerid 06/12/16 06/13/16 06/13/16 15:00 06:06 06:06 WBC 7.5 RBC 3.13 L Hgb 9.5 L Hct 28.6 L MCV 91.5 MCHC 33.3 RDW 17.7 H Plt Count 92 L MPV 8.6 Neutrophils % 73.4 Lymphocytes % 17.4 D Monocytes % 7.7 Eosinophils % 1.0 Basophils % 0.5 INR 1.26 H LD Total Angiotensin Convert Enz Peritoneal WBC 1276 Peritoneal RBC 52760 Periton Neutrophils 10 Periton Lymphocytes 40 Peritoneal Monocytes 28 Periton Macrophages 22 Peritoneal Tot Protein 2 Peritoneal Albumin 2 Peritoneal LDH 68 Peritoneal Glucose 120 Peritoneal Amylase 20 Peritoneal Triglycerid 7 Active Medications Generic Name Dose Route Start Last Admin Trade Name Freq PRN Reason Stop Dose Admin Apixaban 5 mg 06/13/16 10:00 Eliquis - PO BID SANDIE Atorvastatin Calcium 40 mg 06/09/16 22:00 06/12/16 21:51 Lipitor - PO 40 mg HS SANDIE Administration Ceftriaxone Sodium 1 gm 06/11/16 10:00 06/12/16 09:57 Rocephin 1gm Ivpb (Pre-Docked) IVPB 1 gm DAILY SANDIE Administration Furosemide 40 mg 06/12/16 14:00 06/12/16 16:36 Lasix - PO 40 mg DAILY@1400 SANDIE Administration Levetiracetam 500 mg 06/09/16 22:00 06/12/16 21:51 Keppra - PO 500 mg BID SANDIE Administration Lorazepam 2 mg 06/09/16 01:58 Ativan Injection - IVPUSH Q6H PRN Seizure Metoprolol Tartrate 12.5 mg 06/12/16 22:00 06/12/16 21:51 Lopressor - PO 12.5 mg BID SANDIE Administration ASSESSMENT/PLAN: 85 year old male with HTN, Afib (on Eliquis), s/p CABG and mitral valve replacement BIBEMS for one episode of new onset seizure at home. #Abnormal Chest CT, r/o malignancy - Dr. Patricio consulted for Pulmonary - fluid likely transudative given Light's criteria not met for exudate fluid. --fluid studies for cytology pending - abd/pelvis CT negative for masses - ALEXX level 17, wnl, it may be low if sarcoidosis is inactive. #New onset seizure - no repeat episodes - elevate HOB 30-50 degrees to avoid aspiration, neuro checks - Ativan IV 2mg PRN - keppra 500mg po bid - dr. Hirsch, Neurology consult - EEG read generalized slowing, no seizure activity - Darius MRI without contrast negative for acute pathology - Brain MRI with contrast shows small chronic right cerebellum hemispheric infarct, no acute pathology #UTI, will treat for 7 days given complicated UTI in a male - rocephin 1gm daily -- started 06/11 #Acute CHF - lasix 40mg po qd - diovan restarted - echo findings with reduced LV function - Dr. Waddell consulted, findings to be reviewed with Dr. 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 - no IVF #Acute hypoxia, caused by CHF vs ILD - continous nasal cannula 2lpm, will consider bipap if needed - pre-post pulse ox to determine home oxygen need # HTN - controlled - toprol 50mg po daily, changed to metoprolol tart 12.5po bid given low BP ( shorter acting), if BP permits will reinstate home meds. - Valsartan 40mg po daily, restarted #CAD s/p CABG - lipitor 40mg HS #Afib - controlled - eliquis 5 BID # DVT-SCD's, on eliquis # Code Status-Full Code Visit type - Emergency Visit Emergency Visit: No - New Patient This patient is new to me today: No - Critical Care Critical Care patient: No - Discharge Referral Referred to [facility] Med [facility].C.: No
[2016-06-13] MEDS: cefTRIAXone 1 GM/50 ML BAG (PRE-DOCKED) IVPB SCH (09:38)
[2016-06-13] MEDS: levETIRAcetam 500 MG TABLET (FP) PO SCH ×2 (09:39→21:07)
[2016-06-13] MEDS: APIXABAN 5 MG TABLET PO SCH ×2 (09:39→21:07)
[2016-06-13] MEDS: METOPROLOL TARTRATE 25 MG TABLET (FP) PO SCH ×2 (09:39→21:08)
[2016-06-13] MEDS: VALSARTAN 40 MG TABLET (FP) PO SCH (12:50)
[2016-06-13] MEDS: FUROSEMIDE 40 MG TABLET (FP) PO SCH (14:39)
--- NOTE | 2016-06-13 15:49 | PN ---
Progress Note (short form) - Note Progress Note: PULMONARY s/p thoracentesis, initial pleural fluid studies consistent with transudate. Pt denies shortness of breath or chest pain. Last Vital Signs Temp Pulse Resp BP Pulse Ox 97.8 F 68 20 105/54 96 06/13/16 14:21 06/13/16 14:21 06/13/16 14:21 06/13/16 14:21 06/13/16 09:00 Gen: NAD at rest Heart: RRR Lung: decreased breath sounds at the bases Abd: soft, nontender Ext: no edema CBC, BMP 06/13/16 06:06 06/12/16 05:35 Active Medications Apixaban (Eliquis -) 5 mg PO BID [facility] Last Admin: 06/13/16 09:39 Dose: 5 mg Atorvastatin Calcium (Lipitor -) 40 mg PO HS [facility] Last Admin: 06/12/16 21:51 Dose: 40 mg Ceftriaxone Sodium (Rocephin 1gm Ivpb (Pre-Docked)) 1 gm IVPB DAILY [facility] Last Admin: 06/13/16 09:38 Dose: 1 gm Furosemide (Lasix -) 40 mg PO DAILY@1400 [facility] Last Admin: 06/13/16 14:39 Dose: 40 mg Levetiracetam (Keppra -) 500 mg PO BID [facility] Last Admin: 06/13/16 09:39 Dose: 500 mg Lorazepam (Ativan Injection -) 2 mg IVPUSH Q6H PRN PRN Reason: Seizure Metoprolol Tartrate (Lopressor -) 12.5 mg PO BID [facility] Last Admin: 06/13/16 09:39 Dose: 12.5 mg Valsartan (Diovan -) 40 mg PO DAILY [facility] Last Admin: 06/13/16 12:50 Dose: 40 mg A/P Acute on Chronic Systolic/Diastolic Heart Failure Syncope CAD Mitral Regurgitation Atrial Fibrillation Pulmonary HTN Pleural Effusion - Transudate HTN CKD Thrombocytopenia UTI - f/u pleural fluid cultures and cytology - continue lasix, ARB - monitor urine output, creatinine - continue anticoagulation - rate controlled - O2 as needed
--- NOTE | 2016-06-13 16:49 | PN ---
Teaching Attending Note Name of Resident: Luca Naranjo ATTENDING PHYSICIAN STATEMENT I saw and evaluated the patient. I reviewed the resident's note and discussed the case with the resident. I agree with the resident's findings and plan as documented. SUBJECTIVE: no fever or chills, no abd pain . OBJECTIVE: NAD , awake , alert , oriented to self and place CV: irreg irreg, 2/6 SM at apex and LLSB. Lungs: bibailar crackles . Ext : no edema ABd : soft, NT, ND , NL BS . ASSESSMENT AND PLAN: 85 y/o gentleman with h/o A fib, HTN , CAD , valve replacement , h/o systolic CHF who presented after an onset of seizure like activity. He was found to have acute CHF and lung masses . 1-Seizure like activity: 2 episodes - MRI of brain with and without contrast , showed no acute etiology . ( old cerebellar infarct ) - Cont Keppra - prelim EEG with generalized slowing . 2- Acute hypoxic resp failure: due to Acute on chronci systolic CHF exacerbation and possible contributing ILD. Lung masses of unclear etiology yet Echo reviewed, severely reduced EF ( not new as per Dr. Jefferson conversation with his quiller tender , had refused interventions as out pt ) - cont PO lasix and monitor renal function - resume ARB ( started here) an ddecreased dose of BB ( placed on lopressor temporarily due to hypotension , if BP is stable , can resume toprol xl ) - echo pending - ALEXX level pending 3- Lung masses : unclear etiology. pleural effusion is transudative indicating CHF as etiology. - further w/u as out pt - cytology of pleural fluids is pending 4- H/o A fib: - Cont BB -Cont eliquis 5- complicated UTI : urine cx with E coli sensitive to CTX. cont day 3/7 . can switch to po at dc 6- DVT PX : SCDs and elisuis HLOC discharge : achieve euovolemia , stabilize respiration. Then Dc . probably in 1- 2 days will probably need oxygen at home . will order pre and post pulse ox
[2016-06-13] MEDS: ATORVASTATIN CA 40 MG TABLET (FP) PO SCH (21:07)
--- NOTE | 2016-06-14 08:54 | PN ---
Teaching Attending Note Name of Resident: Luca Naranjo ATTENDING PHYSICIAN STATEMENT I saw and evaluated the patient. I reviewed the resident's note and discussed the case with the resident. I agree with the resident's findings and plan as documented. SUBJECTIVE: Patient is feeling better, with no acute distress but his oxygen level is in low 80's on Room air. But on 3 Liter oxygen sat.is 97% OBJECTIVE: Vital Signs Temperature 98 F 06/14/16 05:26 Pulse Rate 84 06/14/16 05:26 Respiratory Rate 18 06/14/16 05:26 Blood Pressure 102/54 06/14/16 05:26 O2 Sat by Pulse Oximetry (%) 95 06/13/16 20:38 GENERAL: The patient is awake, alert, and in no acute distress. On 3l NC EYES; Ocular muscles are intact. LUNGS: upper left Lobe no air entry , lower lobe good air entry. no wheezes, no crackles, no accessory muscle use. HEART: afib, S1, S2. ABDOMEN: Soft, nontender, nondistended, normoactive bowel sounds BACK: right lower back with thoracocentesis site covered with tegaderm, nontender, nonerythematous. EXTREMITIES: 2+ pulses, warm, well-perfused, no edema. NEUROLOGICAL: Normal speech. fully oriented. PSYCH: Normal mood, normal affect. SKIN: Warm, dry, normal turgor, no rashes or lesions noted CBCD WBC 7.5 K/mm3 (4.0-10.0) 06/13/16 06:06 RBC 3.13 M/mm3 (4.00-5.60) L 06/13/16 06:06 Hgb 9.5 GM/dL (11.7-16.9) L 06/13/16 06:06 Hct 28.6 % (35.4-49) L 06/13/16 06:06 MCV 91.5 fl (80-96) 06/13/16 06:06 MCHC 33.3 g/dl (32.0-35.9) 06/13/16 06:06 RDW 17.7 % (11.9-15.9) H 06/13/16 06:06 Plt Count 92 K/MM3 (134-434) L 06/13/16 06:06 MPV 8.6 fl (7.5-11.1) 06/13/16 06:06 CMP Sodium 140 mmol/L (136-145) 06/12/16 05:35 Potassium 3.6 mmol/L (3.5-5.1) 06/12/16 05:35 Chloride 98 mmol/L (98-107) 06/12/16 05:35 Carbon Dioxide 32 mmol/L (21-32) 06/12/16 05:35 Anion Gap 10 (8-16) 06/12/16 05:35 BUN 28 mg/dL (7-18) H 06/12/16 05:35 Creatinine 1.1 mg/dL (0.7-1.3) D 06/12/16 05:35 Creat Clearance w eGFR > 60 (>60) 06/09/16 05:40 Random Glucose 122 mg/dL (74-106) H 06/12/16 05:35 Calcium 8.4 mg/dL (8.5-10.1) L 06/12/16 05:35 Total Bilirubin 0.8 mg/dL (0.2-1.0) 06/09/16 05:40 AST 10 U/L (15-37) L D 06/09/16 05:40 ALT 14 U/L (12-78) 06/09/16 05:40 Alkaline Phosphatase 87 U/L (45-117) D 06/09/16 05:40 Total Protein 6.3 g/dl (6.4-8.2) L 06/09/16 05:40 Albumin 3.2 g/dl (3.4-5.0) L 06/09/16 05:40 CARDIAC ENZYMES Creatine Kinase 104 IU/L (39-308) 06/08/16 19:25 Troponin I 0.04 ng/ml (0.00-0.05) 06/08/16 19:25 Current Medications Generic Name Dose Route Start Last Admin Trade Name Freq PRN Reason Stop Dose Admin Apixaban 5 mg 06/13/16 10:00 06/13/16 21:07 Eliquis - PO 5 mg BID SANDIE Administration Atorvastatin Calcium 40 mg 06/09/16 22:00 06/13/16 21:07 Lipitor - PO 40 mg HS SANDIE Administration Ceftriaxone Sodium 1 gm 06/11/16 10:00 06/13/16 09:38 Rocephin 1gm Ivpb (Pre-Docked) IVPB 1 gm DAILY SANDIE Administration Furosemide 40 mg 06/12/16 14:00 06/13/16 14:39 Lasix - PO 40 mg DAILY@1400 SANDIE Administration Levetiracetam 500 mg 06/09/16 22:00 06/13/16 21:07 Keppra - PO 500 mg BID SANDIE Administration Lorazepam 2 mg 06/09/16 01:58 Ativan Injection - IVPUSH Q6H PRN Seizure Metoprolol Tartrate 12.5 mg 06/12/16 22:00 06/13/16 21:08 Lopressor - PO Not Given BID SANDIE Valsartan 40 mg 06/13/16 10:30 06/13/16 12:50 Diovan - PO 40 mg DAILY SANDIE Administration Medication Instructions Recorded Ascorbic Acid [Vitamin C] 1,000 mg PO DAILY 11/07/11 Aspirin [ASA] 81 mg PO DAILY 11/07/11 Ferrous Fumarate [Iron] 65 mg PO DAILY 11/07/11 Glimepiride 1 mg PO DAILY 11/07/11 Lisinopril [Prinivil] 20 mg PO DAILY 11/07/11 Metoprolol Succinate [Toprol XL] 50 mg PO BID 11/07/11 Vitamin B12 500mg Po Daily 11/07/11 Apixaban [Eliquis] 2.5 mg PO BID 06/08/16 Atorvastatin Ca [Lipitor] 40 mg PO HS 06/08/16 Furosemide [Lasix] 60 mg PO DAILY 06/08/16 Metoprolol Succinate [Toprol Xl] 50 mg PO DAILY 06/08/16 Microbiology 06/12/16 15:00 Peritoneal Fluid Gram Stain - Final 06/12/16 15:00 Peritoneal Fluid Body Fluid Culture - Final NO GROWTH OF AEROBIC ORGANISMS AFTER 48 HOURS INCUBATION 06/12/16 15:00 Peritoneal Fluid Anaerobic Culture - Final NO ANAEROBES WERE ISOLATED 06/12/16 15:00 Peritoneal Fluid AFB Smear Concentration - Final 06/12/16 15:00 Peritoneal Fluid Mycobacterial Culture - Preliminary 06/12/16 15:00 Peritoneal Fluid NATALIE Preparation - Preliminary 06/12/16 15:00 Peritoneal Fluid Fungal Culture - Preliminary 06/11/16 01:37 Urine - Urine Sorenson Urine Culture - Final Escherichia Coli 06/09/16 22:00 Nasopharyngeal Swab Respiratory Virus Panel - Preliminary 06/08/16 22:00 Nasopharyngeal Swab Influenza Types A,B Antigen (JASE) - Final 06/08/16 22:00 Nasopharyngeal Swab - Final MRI brain without contrast no acute findings, generalized volume loss MRI brain with contrast no acute findings, old stroke seen EEG slowing, no seizure CT of the chest BL masses ; left upper lobe around 5.6cm Sagittal and coronal T1, axial T2, FLAIR and diffusion images of the brain were obtained. On the sagittal images, the corpus callosum pineal and pituitary regions and the craniovertebral junction are unremarkable. On the axial and coronal images, the ventricles are dilated with prominence of the sulci changes related to generalized volume loss. There are no intra or extra-axial masses or collections. There are a few foci of small vessel infarction in the periventricular white matter . There are no acute infarction on the diffusion sequence and there is no hemorrhage. Normal flow-void is in the basilar and internal carotid arteries. There is no acute sinusitis. IMPRESSION: Generalized volume loss with few foci of a small vessel infarction in the periventricular white matter. There is no mass lesion acute infarction or hemorrhage. Ct of the chest: Sequential axial images were obtained from the domes of the diaphragms through the symphysis pubis following the administration of intravenous contrast material. A graft evaluation of the lung bases demonstrates bilateral pleural effusions ill-defined lower lobe masses suspicious for malignancy. The heart is enlarged. The liver is normal in size. It is hypodense in texture consistent with diffuse fatty infiltration. There is a calcification within the right lobe that may represent prior granulomatous disease. The spleen, pancreas, adrenal glands and kidneys demonstrate no significant abnormalities. Multiple renal cysts are present. There are calcifications within the gallbladder consistent with cholelithiasis. There is a spigelian hernia within the left lower quadrant that does contain nonobstructed bowel loops. There is no evidence of intra-abdominal or retroperitoneal lymphadenopathy or fluid collections. Examination of the pelvis demonstrates no evidence of pelvic masses, fluid collections or lymphadenopathy. There is no evidence of bony metastases or acute abnormalities. IMPRESSION: 1. Diffuse fatty infiltration of the liver with right lobe calcifications suspicious for prior granulomatous disease. 2. Cholelithiasis. 3. Left lower quadrant spigelian hernia. 4. No evidence of metastatic disease or acute pathology within the abdomen or pelvis. Reported By : Kamari Hogan MD 06/09/16 1744 Microbiology 06/12/16 15:00 Peritoneal Fluid Gram Stain - Final 06/12/16 15:00 Peritoneal Fluid Body Fluid Culture - Final NO GROWTH OF AEROBIC ORGANISMS AFTER 48 HOURS INCUBATION 06/12/16 15:00 Peritoneal Fluid Anaerobic Culture - Final NO ANAEROBES WERE ISOLATED 06/12/16 15:00 Peritoneal Fluid AFB Smear Concentration - Final 06/12/16 15:00 Peritoneal Fluid Mycobacterial Culture - Preliminary 06/12/16 15:00 Peritoneal Fluid NATALIE Preparation - Preliminary 06/12/16 15:00 Peritoneal Fluid Fungal Culture - Preliminary 06/11/16 01:37 Urine - Urine Sorenson Urine Culture - Final Escherichia Coli 06/09/16 22:00 Nasopharyngeal Swab Respiratory Virus Panel - Preliminary 06/08/16 22:00 Nasopharyngeal Swab Influenza Types A,B Antigen (JASE) - Final 06/08/16 22:00 Nasopharyngeal Swab - Final ASSESSMENT AND PLAN: 85 y/o gentleman with h/o A fib, HTN , CAD , valve replacement , h/o systolic CHF who presented after an onset of seizure like activity. He was found to have acute CHF and lung masses . # Patient presented Seizure like activity x 2 episodes ; MRI of brain with and without contrast as above , showed no acute etiology . ( old cerebellar infarct ) - On Keppra continue , EEG was done . 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 Cytology of pleural fluids is pending # H/o A fib: Cont BB,cont eliquis # complicated UTI : urine cx with E coli sensitive to CTx cont day 4/ .switch to PO at dc DVT PX : SCDs and eliqiuis Patient will need oxygen to his home prior to his discharge.
[2016-06-14] MEDS: METOPROLOL TARTRATE 25 MG TABLET (FP) PO SCH ×2 (10:06→22:01)
[2016-06-14] MEDS: levETIRAcetam 500 MG TABLET (FP) PO SCH ×2 (10:06→22:01)
[2016-06-14] MEDS: cefTRIAXone 1 GM/50 ML BAG (PRE-DOCKED) IVPB SCH (10:06)
[2016-06-14] MEDS: APIXABAN 5 MG TABLET PO SCH ×2 (10:06→22:01)
[2016-06-14] MEDS: VALSARTAN 40 MG TABLET (FP) PO SCH (10:07)
--- NOTE | 2016-06-14 11:03 | PN ---
Progress Note, Physician History of Present Illness: PULMONARY ALERT,NAD,-CP,-SOB - Current Medication List Current Medications: Active Medications Apixaban (Eliquis -) 5 mg PO BID [facility] [place] Last Admin: 06/14/16 10:06 Dose: 5 mg Atorvastatin Calcium (Lipitor -) 40 mg PO HS [facility] [place] Last Admin: 06/13/16 21:07 Dose: 40 mg Ceftriaxone Sodium (Rocephin 1gm Ivpb (Pre-Docked)) 1 gm IVPB DAILY [facility] [place] Last Admin: 06/14/16 10:06 Dose: 1 gm Furosemide (Lasix -) 40 mg PO DAILY@1400 [facility] [place] Last Admin: 06/13/16 14:39 Dose: 40 mg Levetiracetam (Keppra -) 500 mg PO BID [facility] [place] Last Admin: 06/14/16 10:06 Dose: 500 mg Lorazepam (Ativan Injection -) 2 mg IVPUSH Q6H PRN PRN Reason: Seizure Metoprolol Tartrate (Lopressor -) 12.5 mg PO BID [facility] [place] Last Admin: 06/14/16 10:06 Dose: 12.5 mg Valsartan (Diovan -) 40 mg PO DAILY [facility] [place] Last Admin: 06/14/16 10:07 Dose: Not Given - Objective Vital Signs: Vital Signs Temperature 98 F 06/14/16 05:26 Pulse Rate 84 06/14/16 05:26 Respiratory Rate 18 06/14/16 05:26 Blood Pressure 102/54 06/14/16 05:26 O2 Sat by Pulse Oximetry (%) 95 06/13/16 20:38 Constitutional: Yes: Calm, Thin Eyes: Yes: WNL HENT: Yes: WNL Neck: Yes: WNL Cardiovascular: Yes: Pulse Irregular, S1, S2 Respiratory: Yes: Diminished Gastrointestinal: Yes: Normal Bowel Sounds, Soft Extremities: Yes: WNL Edema: No Labs: CBC, BMP 06/13/16 06:06 06/12/16 05:35 INR, PTT INR 1.26 (0.82-1.09) H 06/13/16 06:06 - ....Imaging Chest X-ray: Report Reviewed, Image Reviewed (INCREASED CONGESTION BILATERALLY) Assessment/Plan Problem List - Problems (1) Altered mental status Code(s): R41.82 - ALTERED MENTAL STATUS, UNSPECIFIED Qualifiers: Altered mental status type: unspecified Qualified Code(s): R41.82 - Altered mental status, unspecified (2) Pulmonary mass Code(s): R91.8 - OTHER NONSPECIFIC ABNORMAL FINDING OF LUNG FIELD (3) Seizures Code(s): R56.9 - UNSPECIFIED CONVULSIONS (4) Pleural effusion Code(s): J90 - PLEURAL EFFUSION, NOT ELSEWHERE CLASSIFIED TRANSUDATE (5) Atrial fibrillation Code(s): I48.91 - UNSPECIFIED ATRIAL FIBRILLATION 6 PULMONARY HTN 7 SEVERE LV DYSFUNCTION Assessment/Plan PLAN: O2 as needed Seizure precautions diuretics check pleural fluid cytology Dr Sánchez
--- NOTE | 2016-06-14 11:08 | PN ---
Progress Note (short form) - Note Progress Note: S: 85 year old gentleman, history of severe left ventricle systolic dysfunction. History of coronary artery disease s/p CABG, hypertension, hypertensive cardiovascular disease, moderate to severe mitral regurgitation, history of tricuspid regurgitation and Permanent atrial fibrillation, s/p failed mitral valve repair. Patient is resting comfortably, denies having dyspnea at rest, PND or orthopnea. Patient had thoracentesis and had significant number of RVCs in the pleural fluid, LDH was normal. Cytology is pending. Admitted with history of syncopal episode, apparently had a seizure. There has been no recurrence of these symptoms. Active Medications Generic Name Dose Route Start Last Admin Trade Name Freq PRN Reason Stop Dose Admin Apixaban 5 mg 06/13/16 10:00 06/14/16 10:06 Eliquis - PO 5 mg BID SANDIE Administration Atorvastatin Calcium 40 mg 06/09/16 22:00 06/13/16 21:07 Lipitor - PO 40 mg HS SANDIE Administration Ceftriaxone Sodium 1 gm 06/11/16 10:00 06/14/16 10:06 Rocephin 1gm Ivpb (Pre-Docked) IVPB 1 gm DAILY SANDIE Administration Furosemide 40 mg 06/12/16 14:00 06/13/16 14:39 Lasix - PO 40 mg DAILY@1400 SANDIE Administration Levetiracetam 500 mg 06/09/16 22:00 06/14/16 10:06 Keppra - PO 500 mg BID SANDIE Administration Lorazepam 2 mg 06/09/16 01:58 Ativan Injection - IVPUSH Q6H PRN Seizure Metoprolol Tartrate 12.5 mg 06/12/16 22:00 06/14/16 10:06 Lopressor - PO 12.5 mg BID SANDIE Administration Valsartan 40 mg 06/13/16 10:30 06/14/16 10:07 Diovan - PO Not Given DAILY SANDIE O: 85 year old male was in no acute distress, no pallor, cyanosis, clubbing, or jaundice. Last Vital Signs Temp Pulse Resp BP Pulse Ox 98 F 84 Irregular 18 102/54 95 06/14/16 05:26 06/14/16 05:26 06/14/16 05:26 06/14/16 05:26 06/13/16 20:38 Neck: Supple, no JVD, slightly pulsatile neck veins, carotids were equal and upstrokes were normal, no thyromegaly appreciated. Heart: PMI was in the 5th intercostal space, no heaves or thrills, S1 and S2 were normal. Grade II/ Holosystolic murmur at the apex and decrescendo Grade II/ systolic murmur. No gallops were appreciated. Lungs: Decrease breath sounds at the right breath, no extraneous sounds were heard. Abdomen: Soft, nontender, no hepatosplenomegaly appreciated, and no palpable masses were felt. Extremities: No calf tenderness or dependent edema. Pulses are normal. CBC, BMP 06/13/16 06:06 06/12/16 05:35 Impression: (1) Permanent Atrial fibrillation, with controlled ventricular response. Qualifiers: Atrial fibrillation type: persistent Qualified Code(s): I48.1 - Persistent atrial fibrillation (2) Severe left ventricle systolic dysfunction related to ischemic heart disease and mitral regurgitation. Code(s): I34.0 - NONRHEUMATIC MITRAL (VALVE) INSUFFICIENCY (3) HTN (hypertension) Code(s): I10 - ESSENTIAL (PRIMARY) HYPERTENSION Qualifiers: Hypertension type: essential hypertension Qualified Code(s): I10 - Essential (primary) hypertension (4) History of syncope with possible seizure, etiology to be determined a. Advanced AV block needs to be excluded b. Sustained ventricular arrhythmias, especially in the presence of severe left ventricular systolic dysfunction. Code(s): R55 - SYNCOPE AND COLLAPSE Qualifiers: Syncope type: unspecified Qualified Code(s): R55 - Syncope and collapse (5) Hypercholesterolemia Code(s): E78.0 - PURE HYPERCHOLESTEROLEMIA * DO NOT USE * (5) Diastolic dysfunction with acute on chronic heart failure Code(s): I50.33 - ACUTE ON CHRONIC DIASTOLIC (CONGESTIVE) HEART FAILURE (6) Complete left bundle branch block Code(s): I44.7 - LEFT BUNDLE-BRANCH BLOCK, UNSPECIFIED (7) Ventricular ectopic beats (8) Bloody plural effusion, etiology to be determined a. Traumatic. b. Possibility of malignancy needs to be excluded. (9) Coronary artery disease s/p CABG Code(s): I25.10 - ATHSCL HEART DISEASE OF [place] CORONARY ARTERY W/O ANG PCTRS (10)Tricuspid regurgitation Code(s): I07.1 - RHEUMATIC TRICUSPID INSUFFICIENCY Recommendations: 1. Cytology on pleural fluid is pending. 2. Holtor monitor. 3. Further cardiac work up may be necessary if cause of syncope is not determined. Prognosis: Guarded Attestation: Documentation prepared by Jose Armando Mcdonald, acting as medical engineer for Atilio Mccoy MD.
[2016-06-14] MEDS: FUROSEMIDE 40 MG TABLET (FP) PO SCH (13:25)
--- NOTE | 2016-06-14 13:58 | PN ---
Physical Exam: SUBJECTIVE: Patient seen and examined No complaints. denies chest pain, shortness of breath, headache, confusion. OBJECTIVE: Vital Signs Period Temp Pulse Resp BP Sys/Low Pulse Ox Last 24 Hr 97.0 F-98 F 68-98 18-20 102-107/40-54 95-100 GENERAL: The patient is awake, alert, and fully oriented, in no acute distress. NECK: Trachea midline, full range of motion, supple, no JVD LUNGS: Breath sounds equal, clear to auscultation bilaterally, quiet at bases. HEART: afib, S1, S2 ABDOMEN: Soft, nontender, nondistended, normoactive bowel sounds EXTREMITIES: 2+ pulses, warm, well-perfused, no edema. NEUROLOGICAL: Normal speech. alert oriented person, place, time, president and yesterday's events. SKIN: Warm, dry, normal turgor, no rashes or lesions noted BACK: thoracocentesis site the dry, intact, no surrounding tenderness, erythema , discharge, bleeding. Active Medications Generic Name Dose Route Start Last Admin Trade Name Fremary anne PRN Reason Stop Dose Admin Apixaban 5 mg 06/13/16 10:00 06/14/16 10:06 Eliquis - PO 5 mg BID SANDIE Administration Atorvastatin Calcium 40 mg 06/09/16 22:00 06/13/16 21:07 Lipitor - PO 40 mg HS SANDIE Administration Ceftriaxone Sodium 1 gm 06/11/16 10:00 06/14/16 10:06 Rocephin 1gm Ivpb (Pre-Docked) IVPB 1 gm DAILY SANDIE Administration Furosemide 40 mg 06/12/16 14:00 06/14/16 13:25 Lasix - PO 40 mg DAILY@1400 SANDIE Administration Levetiracetam 500 mg 06/09/16 22:00 06/14/16 10:06 Keppra - PO 500 mg BID SANDIE Administration Lorazepam 2 mg 06/09/16 01:58 Ativan Injection - IVPUSH Q6H PRN Seizure Metoprolol Tartrate 12.5 mg 06/12/16 22:00 06/14/16 10:06 Lopressor - PO 12.5 mg BID SANDIE Administration Valsartan 40 mg 06/13/16 10:30 06/14/16 10:07 Diovan - PO Not Given DAILY SANDIE ASSESSMENT/PLAN: 85 year old male with HTN, Afib (on Eliquis), s/p CABG and mitral valve replacement BIBEMS for one episode of new onset seizure at home. Repeat conversation with who was present at home and witnessed the event feels that he may have fainted rather than had a seizure, says she used "seizure " to describe the event because she heard the ambulance say it. #Acute hypoxia, caused by CHF vs ILD - continous nasal cannula 3lpm, will consider bipap if needed - pre-post pulse ox to determine home oxygen need, patient unable to complete pre-post as he began to desaturate to 70's within 5 minutes of test. he denied SOB, chest pain,, lightheadedness, dizziness. saturation improved to 97% once seated. - given desaturation, patient will need rehab for PT/OT and home oxygen - discussed with at bedside, agrees for rehab #Abnormal Chest CT, r/o malignancy - Dr. Patricio consulted for Pulmonary - fluid likely transudative given Light's criteria not met for exudate fluid. --fluid studies for cytology pending, can f/u as outpatient for further evaluation. - abd/pelvis CT negative for masses - ALEXX level 17, wnl, it may be low if sarcoidosis is inactive, cannot completely r/o however given patient's smoking history more suspicious for malignancy. #New onset seizure - no repeat episodes. - elevate HOB 30-50 degrees to avoid aspiration, neuro checks - Ativan IV 2mg PRN - keppra 500mg po bid - dr. Hirsch, Neurology consult - EEG read generalized slowing, no seizure activity - Darius MRI without contrast negative for acute pathology - Brain MRI with contrast shows small chronic right cerebellum hemispheric infarct, no acute pathology #UTI, will treat for 7 days given complicated UTI in a male - rocephin 1gm daily -- started 06/11 #Acute CHF exacerbation - lasix 40mg po qd - diovan 40g po daily - blood pressure tolerating well. - echo findings with reduced LV function - Dr. Waddell consulted, findings to be reviewed with Dr. Haley, patient's own lawyers. - no IVF # HTN - controlled - toprol 50mg po daily, changed to metoprolol tart 12.5po bid given low BP ( shorter acting), if BP permits will reinstate home meds. BP range: 102-107/40-54 , will keep on 12.5 for now. - Valsartan 40mg po daily #CAD s/p CABG - lipitor 40mg HS #Afib - controlled - eliquis 5 BID # DVT-SCD's, on eliquis # Code Status-Full Code Visit type - Emergency Visit Emergency Visit: No - New Patient This patient is new to me today: No - Critical Care Critical Care patient: No - Discharge Referral Referred to [facility] Med [facility] No
--- NOTE | 2016-06-14 15:49 | PATH ---
Cytology Non-Gynecological Report Patient Name: MARILUZ MIRELES Med. Rec. #: [id number] /Age/Gender: 1930 (Age: 85) / M Account: [id number] Location: 4 TELEMETRY U Taken: 06/13/2016 Received: 06/13/2016 Reported: 06/14/2016 Physicians: Homero [place] M.D. Specimen(s) Received A: PLEURAL FLUID IN 50% ALCOHOL B: PLEURAL FLUID FRESH Clinical History Pleural effusion Final Diagnosis A,B. PLEURAL FLUID, THORACENTESIS: SATISFACTORY FOR EVALUATION. NO MALIGNANT CELLS IDENTIFIED. REACTIVE MESOTHELIAL CELLS, HISTIOCYTES AND MIXED INFLAMMATORY CELLS. Electronically Signed Eloy Rizvi M.D. Gross Description A. Received is a 50 cc of serosanguineous fluid in 50% alcohol. One cytofunnel slide and one cell block are made. B. Received is 1000 cc of serosanguineous fluid fresh. One cytofunnel slide and one cell block are made.
[2016-06-14] MEDS: ATORVASTATIN CA 40 MG TABLET (FP) PO SCH (22:01)
[2016-06-15 08:20] LABS: MCH 30.1 pg (25.7-33.7); MCHC 32.9 g/dl (32.0-35.9); MEAN CELL VOLUME 91.5 fl (80-96); MEAN PLT VOLUME 8.2 fl (7.5-11.1); PLATELET COUNT 91 K/MM3 (134-434); RDW 17.5 % (11.9-15.9); WHITE BLOOD COUNT 6.6 K/mm3 (4.0-10.0)
[2016-06-15 08:45] LABS: CALCIUM 8.6 mg/dL (8.5-10.1)
--- NOTE | 2016-06-15 09:01 | PN ---
Progress Note, Physician Chief Complaint: Generalized weakness improved wanting to go home History of Present Illness: Patient was seen and examined. Awake and alert. Chart was reviewed Denies chest pain or palpitation. Not in distress - Current Medication List Current Medications: Active Medications Apixaban (Eliquis -) 5 mg PO BID [facility] Last Admin: 06/14/16 22:01 Dose: 5 mg Atorvastatin Calcium (Lipitor -) 40 mg PO HS [facility] Last Admin: 06/14/16 22:01 Dose: 40 mg Ceftriaxone Sodium (Rocephin 1gm Ivpb (Pre-Docked)) 1 gm IVPB DAILY [facility] Last Admin: 06/14/16 10:06 Dose: 1 gm Furosemide (Lasix -) 40 mg PO DAILY@1400 [facility] Last Admin: 06/14/16 13:25 Dose: 40 mg Levetiracetam (Keppra -) 500 mg PO BID [facility] Last Admin: 06/14/16 22:01 Dose: 500 mg Lorazepam (Ativan Injection -) 2 mg IVPUSH Q6H PRN PRN Reason: Seizure Metoprolol Tartrate (Lopressor -) 12.5 mg PO BID [facility] Last Admin: 06/14/16 22:01 Dose: 12.5 mg Valsartan (Diovan -) 40 mg PO DAILY [facility] Last Admin: 06/14/16 10:07 Dose: Not Given - Objective Vital Signs: Vital Signs Temperature 96.4 F L 06/15/16 06:00 Pulse Rate 92 H 06/15/16 06:00 Respiratory Rate 20 06/15/16 06:00 Blood Pressure 137/77 06/15/16 06:00 O2 Sat by Pulse Oximetry (%) 100 06/14/16 22:00 Labs: CBC, BMP 06/15/16 07:45 06/15/16 07:45 INR, PTT INR 1.26 (0.82-1.09) H 06/13/16 06:06 Problem List - Problems (1) Atrial fibrillation Qualifiers: Atrial fibrillation type: persistent Qualified Code(s): I48.1 - Persistent atrial fibrillation (4) HTN (hypertension) Code(s): I10 - ESSENTIAL (PRIMARY) HYPERTENSION Qualifiers: Hypertension type: essential hypertension Qualified Code(s): I10 - Essential (primary) hypertension (5) Hypercholesterolemia Code(s): E78.0 - PURE HYPERCHOLESTEROLEMIA * DO NOT USE * (6) Syncope Code(s): R55 - SYNCOPE AND COLLAPSE Qualifiers: Syncope type: unspecified Qualified Code(s): R55 - Syncope and collapse (7) Diastolic dysfunction with acute on chronic heart failure Code(s): I50.33 - ACUTE ON CHRONIC DIASTOLIC (CONGESTIVE) HEART FAILURE Assessment/Plan 1. Clinical presentation is suggestive of neuro-cardiogenic syncope ( vasodepressor vs. cardioinhibitory) vs. sustained arrhythmia (ventricular) 2. Systolic and diastolic LV dysfunction with class II NYHA classification LV failure 3. CAD post re-op CABG, angina pectoris 4. 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 Persistent atrial fibrillation [id number] score of 5 on NOAC 6. HTN 7. Hypercholesterolemia 8. CKD 9. Anemia and thrombocytopenia PLAN: 1. Continue Toprol XL and Diovan hemodynamics permitting 2. Continue Lasix 3. Continue Lipitor 4. Continue Eliquis (Wt. > 60 Kg and Creatinine < 1.5) 5. Pathology report for pleural study noted Discharge planning Follow up with his brokerage coordinator: Dr. Americo Haley upon discharge Further syncope work up if indicated clinically Anatoliy Blackburn MD
[2016-06-15] MEDS: levETIRAcetam 500 MG TABLET (FP) PO SCH (09:42)
[2016-06-15] MEDS: METOPROLOL TARTRATE 25 MG TABLET (FP) PO SCH (09:42)
[2016-06-15] MEDS: APIXABAN 5 MG TABLET PO SCH (09:43)
[2016-06-15] MEDS: VALSARTAN 40 MG TABLET (FP) PO SCH (09:43)
[2016-06-15] MEDS: cefTRIAXone 1 GM/50 ML BAG (PRE-DOCKED) IVPB SCH (09:43)
--- NOTE | 2016-06-15 10:06 | PN ---
Teaching Attending Note Name of Resident: Luca Naranjo ATTENDING PHYSICIAN STATEMENT I saw and evaluated the patient. I reviewed the resident's note and discussed the case with the resident. I agree with the resident's findings and plan as documented. SUBJECTIVE: Patient is comfortable wants to go home. Knows that he is in the hospital. OBJECTIVE: Vital Signs Temperature 96.4 F L 06/15/16 06:00 Pulse Rate 92 H 06/15/16 06:00 Respiratory Rate 20 06/15/16 06:00 Blood Pressure 137/77 06/15/16 06:00 O2 Sat by Pulse Oximetry (%) 100 06/14/16 22:00 WBC 6.6 K/mm3 (4.0-10.0) 06/15/16 07:45 RBC 2.99 M/mm3 (4.00-5.60) L 06/15/16 07:45 Hgb 9.0 GM/dL (11.7-16.9) L 06/15/16 07:45 Hct 27.4 % (35.4-49) L 06/15/16 07:45 MCV 91.5 fl (80-96) 06/15/16 07:45 MCHC 32.9 g/dl (32.0-35.9) 06/15/16 07:45 RDW 17.5 % (11.9-15.9) H 06/15/16 07:45 Plt Count 91 K/MM3 (134-434) L 06/15/16 07:45 MPV 8.2 fl (7.5-11.1) 06/15/16 07:45 CMP Sodium 140 mmol/L (136-145) 06/15/16 07:45 Potassium 3.6 mmol/L (3.5-5.1) 06/15/16 07:45 Chloride 99 mmol/L (98-107) 06/15/16 07:45 Carbon Dioxide 34 mmol/L (21-32) H 06/15/16 07:45 Anion Gap 7 (8-16) L 06/15/16 07:45 BUN 19 mg/dL (7-18) H D 06/15/16 07:45 Creatinine 1.0 mg/dL (0.7-1.3) 06/15/16 07:45 Creat Clearance w eGFR > 60 (>60) 06/09/16 05:40 Random Glucose 124 mg/dL (74-106) H 06/15/16 07:45 Calcium 8.6 mg/dL (8.5-10.1) 06/15/16 07:45 Total Bilirubin 0.8 mg/dL (0.2-1.0) 06/09/16 05:40 AST 10 U/L (15-37) L D 06/09/16 05:40 ALT 14 U/L (12-78) 06/09/16 05:40 Alkaline Phosphatase 87 U/L (45-117) D 06/09/16 05:40 Total Protein 6.3 g/dl (6.4-8.2) L 06/09/16 05:40 Albumin 3.2 g/dl (3.4-5.0) L 06/09/16 05:40 CARDIAC ENZYMES Creatine Kinase 104 IU/L (39-308) 06/08/16 19:25 Troponin I 0.04 ng/ml (0.00-0.05) 06/08/16 19:25 Current Medications Generic Name Dose Route Start Last Admin Trade Name Mickyq PRN Reason Stop Dose Admin Apixaban 5 mg 06/13/16 10:00 06/15/16 09:43 Eliquis - PO 5 mg BID SANDIE Administration Atorvastatin Calcium 40 mg 06/09/16 22:00 06/14/16 22:01 Lipitor - PO 40 mg HS SANDIE Administration Ceftriaxone Sodium 1 gm 06/11/16 10:00 06/15/16 09:43 Rocephin 1gm Ivpb (Pre-Docked) IVPB 1 gm DAILY SANDIE Administration Furosemide 40 mg 06/12/16 14:00 06/14/16 13:25 Lasix - PO 40 mg DAILY@1400 SANDIE Administration Levetiracetam 500 mg 06/09/16 22:00 06/15/16 09:42 Keppra - PO 500 mg BID SANDIE Administration Lorazepam 2 mg 06/09/16 01:58 Ativan Injection - IVPUSH Q6H PRN Seizure Metoprolol Tartrate 12.5 mg 06/12/16 22:00 06/15/16 09:42 Lopressor - PO 12.5 mg BID SANDIE Administration Valsartan 40 mg 06/13/16 10:30 06/15/16 09:43 Diovan - PO 40 mg DAILY SANDIE Administration Medication Instructions Recorded Ascorbic Acid [Vitamin C] 1,000 mg PO DAILY 11/07/11 Aspirin [ASA] 81 mg PO DAILY 11/07/11 Ferrous Fumarate [Iron] 65 mg PO DAILY 11/07/11 Glimepiride 1 mg PO DAILY 11/07/11 Lisinopril [Prinivil] 20 mg PO DAILY 11/07/11 Metoprolol Succinate [Toprol XL] 50 mg PO BID 11/07/11 Vitamin B12 500mg Po Daily 11/07/11 Apixaban [Eliquis] 2.5 mg PO BID 06/08/16 Atorvastatin Ca [Lipitor] 40 mg PO HS 06/08/16 Furosemide [Lasix] 60 mg PO DAILY 06/08/16 Metoprolol Succinate [Toprol Xl] 50 mg PO DAILY 06/08/16 ASSESSMENT AND PLAN: 85 y/o gentleman with h/o A fib, HTN , CAD , valve replacement , h/o systolic CHF who presented after an onset of seizure like activity. He was found to have acute CHF and lung masses . # Patient presented Seizure like activity x 2 episodes ; MRI of brain with and without contrast as above , showed no acute etiology . ( old cerebellar infarct ) - On Keppra continue , EEG was done , patient needs to follow up with Neurologist in a week period. #Acute hypoxic respiratory failure improving on Home oxygen, saturation 93% on 2 liter , due to having BL masses on CT of the chest, will follow up with tax lawyer as an outpatient. #Acute on chronic systolic CHF exacerbation ; Echo reviewed, severely reduced EF ( not new as per Dr. Sprague , his mortuary technician , patient refused interventions as out pt ) follow up with mortuary technician as an outpatient. # Pleural effusion is transudative indicating CHF as etiology. Cytology of pleural fluids is pending, office will follow the pathology # H/o A fib: Cont BB,cont eliquis # complicated UTI : urine cx with E coli sensitive to CTx cont day 5/ .switch to PO levaquin for 2 more days DVT PX : SCDs and eliqiuis Going home on 2liter oxygen, also continue incentive spirometer.
[2016-06-15 11:40] VITALS: BP 109/39; PULSE 83; TEMP 97.8
--- NOTE | 2016-06-15 13:22 | PN ---
Progress Note (short form) - Note Progress Note: Awake and alert. Reports breathing is OK. No CP or SOB. Pleural effusion : non-diagnostic Intake & Output 06/12/16 06/13/16 06/14/16 06/15/16 23:59 23:59 23:59 23:59 Intake Total 30 50 890 Output Total 1300 Balance 30 50 -410 Weight 167 lb 6.4 oz 167 lb 9.6 oz 173 lb 171 lb 4 oz Last Vital Signs Temp Pulse Resp BP Pulse Ox 97.8 F 83 18 109/39 97 06/15/16 09:00 06/15/16 09:00 06/15/16 09:00 06/15/16 09:00 06/15/16 09:00 Active Medications Apixaban (Eliquis -) 5 mg PO BID [facility] Last Admin: 06/15/16 09:43 Dose: 5 mg Atorvastatin Calcium (Lipitor -) 40 mg PO HS [facility] Last Admin: 06/14/16 22:01 Dose: 40 mg Ceftriaxone Sodium (Rocephin 1gm Ivpb (Pre-Docked)) 1 gm IVPB DAILY [facility] Last Admin: 06/15/16 09:43 Dose: 1 gm Furosemide (Lasix -) 40 mg PO DAILY@1400 [facility] Last Admin: 06/14/16 13:25 Dose: 40 mg Levetiracetam (Keppra -) 500 mg PO BID [facility] Last Admin: 06/15/16 09:42 Dose: 500 mg Lorazepam (Ativan Injection -) 2 mg IVPUSH Q6H PRN PRN Reason: Seizure Metoprolol Tartrate (Lopressor -) 12.5 mg PO BID [facility] Last Admin: 06/15/16 09:42 Dose: 12.5 mg Valsartan (Diovan -) 40 mg PO DAILY [facility] Last Admin: 06/15/16 09:43 Dose: 40 mg Constitutional: Yes: NAD Eyes: Yes: WNL HENT: Yes: WNL Neck: Yes: WNL Cardiovascular: Yes: Pulse Irregular, S1, S2 Respiratory: Yes: Diminished / scattered rhonchi Gastrointestinal: Yes: Normal Bowel Sounds, Soft Extremities: Yes: WNL Edema: No Labs: Laboratory Results - last 24 hr 06/15/16 06/15/16 07:45 07:45 WBC 6.6 RBC 2.99 L Hgb 9.0 L Hct 27.4 L MCV 91.5 MCHC 32.9 RDW 17.5 H Plt Count 91 L MPV 8.2 Sodium 140 Potassium 3.6 Chloride 99 Carbon Dioxide 34 H Anion Gap 7 L BUN 19 H D Creatinine 1.0 Random Glucose 124 H Calcium 8.6 Assessment/Plan Problem List - Problems (1) Altered mental status Code(s): R41.82 - ALTERED MENTAL STATUS, UNSPECIFIED Qualifiers: Altered mental status type: unspecified Qualified Code(s): R41.82 - Altered mental status, unspecified (2) Pulmonary mass Code(s): R91.8 - OTHER NONSPECIFIC ABNORMAL FINDING OF LUNG FIELD (3) Seizures Code(s): R56.9 - UNSPECIFIED CONVULSIONS (4) Pleural effusion Code(s): J90 - PLEURAL EFFUSION, NOT ELSEWHERE CLASSIFIED TRANSUDATE (5) Atrial fibrillation Code(s): I48.91 - UNSPECIFIED ATRIAL FIBRILLATION 6 PULMONARY HTN 7 SEVERE LV DYSFUNCTION Assessment/Plan O2 as needed Seizure precautions Diuretics Patient to follow with his doctors at [facility] -> will need tissue diagnosis as malignancy is highly suggested. Dr Patricio Problem List - Problems (1) Altered mental status Qualifiers: Qualified Code(s): R41.82 - Altered mental status, unspecified (5) Atrial fibrillation Qualifiers: Atrial fibrillation type: persistent Qualified Code(s): I48.1 - Persistent atrial fibrillation
--- NOTE | 2016-06-15 13:54 | DS ---
Physical Exam: SUBJECTIVE: Patient seen and examined OBJECTIVE: Vital Signs Period Temp Pulse Resp BP Sys/Low Pulse Ox Last 24 Hr 96.4 F-98.6 F 73-92 18-20 104-137/39-77 97-100 PHYSICAL EXAM GENERAL: The patient is awake, alert, and fully oriented, in no acute distress. NECK: Trachea midline, full range of motion, supple, no JVD LUNGS: Breath sounds equal, clear to auscultation bilaterally, quiet at bases. HEART: afib, S1, S2 ABDOMEN: Soft, nontender, nondistended, normoactive bowel sounds EXTREMITIES: 2+ pulses, warm, well-perfused, no edema. NEUROLOGICAL: Normal speech. alert oriented person, place, time, and yesterday' s events. SKIN: Warm, dry, normal turgor, no rashes or lesions noted BACK: thoracocentesis site the dry, intact, no surrounding tenderness, erythema , discharge, bleeding. LABS Laboratory Tests 06/08/16 06/08/16 06/09/16 19:25 19:25 05:40 WBC 9.0 Hgb 10.4 L Hct 31.2 L RDW Plt Count 92 L Sodium 142 Potassium 3.5 Chloride 102 Carbon Dioxide 28 BUN 26 H Creatinine 1.2 Total Protein 7.7 6.3 L Triglycerides 86 Cholesterol 73 Total LDL Cholesterol 32 HDL Cholesterol 46 06/12/16 06/12/16 05:35 15:00 LD Total 166 Angiotensin Convert Enz 17 Peritoneal WBC 1276 Peritoneal RBC 30467 Periton Neutrophils 10 Periton Lymphocytes 40 Peritoneal Monocytes 28 Periton Macrophages 22 Peritoneal Tot Protein 2 Peritoneal Albumin 2 Peritoneal LDH 68 Peritoneal Glucose 120 Peritoneal Amylase 20 Peritoneal Triglycerid 7 06/15/16 06/15/16 07:45 07:45 WBC 6.6 Hgb 9.0 L Hct 27.4 L RDW 17.5 H Sodium 140 Potassium 3.6 Chloride 99 Carbon Dioxide 34 H BUN 19 H D Creatinine 1.0 Microbiology 06/12/16 15:00 Peritoneal Fluid Gram Stain - Final 06/12/16 15:00 Peritoneal Fluid Body Fluid Culture - Final NO GROWTH OF AEROBIC ORGANISMS AFTER 48 HOURS INCUBATION 06/12/16 15:00 Peritoneal Fluid Anaerobic Culture - Final NO ANAEROBES WERE ISOLATED 06/12/16 15:00 Peritoneal Fluid AFB Smear Concentration - Final 06/12/16 15:00 Peritoneal Fluid Mycobacterial Culture - Preliminary 06/12/16 15:00 Peritoneal Fluid NATALIE Preparation - Preliminary 06/12/16 15:00 Peritoneal Fluid Fungal Culture - Preliminary 06/11/16 01:37 Urine - Urine Sorenson Urine Culture - Final Escherichia Coli 06/09/16 22:00 Nasopharyngeal Swab Respiratory Virus Panel - Preliminary 06/08/16 22:00 Nasopharyngeal Swab Influenza Types A,B Antigen (JASE) - Final 06/08/16 22:00 Nasopharyngeal Swab - Final IMAGIN/31 Chest xray: Bilateral airspace opacities right greater than left are again seen and appear slightly increased. Patient is rotated which exaggerates cardiomediastinal silhouette. Bilateral pleural effusions are similar in appearance. IMPRESSION: Slightly worsening infiltrates. Stable pleural effusions. 06/09 abd/pelvis CT: 1. Diffuse fatty infiltration of the liver with right lobe calcifications suspicious for prior granulomatous disease. 2. Cholelithiasis. 3. Left lower quadrant spigelian hernia. 4. No evidence of metastatic disease or acute pathology within the abdomen or pelvis. 06/10 Brain MRI with contrast: No mass lesion or abnormal contrast enhancement is identified. There is no evidence of acute infarction. A small chronic infarct is noted within the superior aspect of the right cerebellar hemisphere posteriorly. Minimal chronic periventricular microvascular changes are noted. There is no extra-axial fluid collection. Involutional changes are seen with corresponding mild ventricular dilatation. The craniocervical junction appears unremarkable. Signal void is seen within the intracranial vertebral and internal carotid arteries as well as the basilar artery consistent with vessel patency. IMPRESSION: No mass lesion is identified. Small chronic right cerebellar hemispheric infarct. 06/09 Brain MRI without contrast: Sagittal and coronal T1, axial T2, FLAIR and diffusion images of the brain were obtained. On the sagittal images, the corpus callosum pineal and pituitary regions and the craniovertebral junction are unremarkable. On the axial and coronal images, the ventricles are dilated with prominence of the sulci changes related to generalized volume loss. There are no intra or extra-axial masses or collections. There are a few foci of small vessel infarction in the periventricular white matter . There are no acute infarction on the diffusion sequence and there is no hemorrhage. Normal flow- void is in the basilar and internal carotid arteries. There is no acute sinusitis. IMPRESSION: Generalized volume loss with few foci of a small vessel infarction in the periventricular white matter. There is no mass lesion acute infarction or hemorrhage. 06/[address]: Limited study with suspected poorly defined bilateral pulmonary masses suspicious for malignancy. There are bilateral pleural effusions and basilar atelectasis also noted. Clinical correlation and follow-up recommended. PThere are bilateral pleural effusions and basilar consolidation/atelectasis. There is also groundglass opacification throughout both lungs. The heart is moderately enlarged. No mediastinal masses are identified. Calcified lymph nodes are present. 06/[address]: There is no evidence of acute intracranial hemorrhage, mass lesions or infarctions. There is a moderate degree of diffuse cerebral atrophy with sulcal widening and ventricular dilatation. IMPRESSION: No evidence of acute intracranial pathology. 06/08 Chest xray: The heart size is enlarged. The patient is status post open- heart surgery with median sternotomy sutures present. There are increased interstitial markings throughout the lung garcia suspicious for pulmonary vascular congestion. Clinical correlation and follow-up is now recommended. IMPRESSION: Cardiomegaly and probable mild congestion. 06/12 Echo summarized: EF 26.1%, LV systolic function severly reduced, severe global hypokinesis. moderate mitral annular calcification. right ventricular systolic pressure elevated 3040mmHg. HOSPITAL COURSE: Date of Admission:06/09/16 - Date of Discharge: 06/15/16 85 year old male with HTN, Afib (on Eliquis),CAD, s/p CABG and mitral valve replacement BIBEMS with altered mental status, mutism on initial evaluation and diffuse weakness. As per , who wtinessed leda event, patient suddenly began shaking for a couple of minutes, she had to hold him to prevent from falling. As per the EMS report, patient felt weak, was able to communicate, was AAO x 4 but on arrival to the ED, he was non verbal for sometime. Initially he didn't remember what brought him to the hospital or prior events of the day. Patient's presentation is likely consistent with a post ictal state rather than acute CVA given the initial symptoms began with a seizure-like episode. Patient's CT of head showed no evidence of acute intracranial pathology. After a period of observation, patient regained baseline mentation, was alert and oriented 3, and followed commands. Further conversation with regarding description of events was suspicious for neuro-cardiogenic syncope (vasodepressor vs. cardioinhibitory) vs. sustained arrhythmia (ventricular). He remained oriented throughout the rest of hospital stay with no repeat episodes of seizure like activity. In the ED he was also unable to maintain oxygen saturation above 95%. Chest x- ray revealed cardiomegaly, bilateral pleural effusions and alveolar infiltrates. CT of chest without IV contrast was obtained and revealed bilateral pleural effusions and poorly identified bilateral masses which are suspected for malignancy. Abdomen/pelvis CT did not show any masses or signs of metastatic disease. Pleural effusion was tapped by IR with the above listed results of fluid analysis, likely transudative in nature. 135 cc of hemorrhagic fluid was removed. Given multiple calcified lymph nodes on chest CT, sarciodosis was also considered. ALEXX level was within normal limits, suspicion remains high for malignancy. During hospital he required 2-3lpm of oxygen via nasal cannula to maintain O2 saturation >90%, averaging 94-100% with supplemental oxygen. Arrangements were made with [employer] for home oxygen. In addition he also complained of dysuria on 06/11, his u/a was positive for UTI , ucx gre e.coli senstive to rocephin. he received 5 days IV and was discharged with 2 days of levaquin to complete a 7-day course. He also underwent echo to evaluate LV size and function and MV pathology. Findings summarized above. Results were reviewed with family by Dr. Gresham. Medication changes: - Addition of keppra 500mg BID for new onset seizures - Increased Eliquis, correct dosage to 5 mg twice daily (Wt. > 60 Kg and Creatinine < 1.5) - Reduced Metoprolol tartrate 12.5 mg daily at time of discharge as patient had episode of hypotension (88/45 on 3rd day of hospital stay, BP range for rest of stay: 100-137/40-77) Recommendations: - follow-up with neurologist to evaluate continued need for Keppra - follow-up with sap hana architect for repeat CT scan and biopsy of lung masses. - follow-up with measurement specialist for echo findings and changes to medications. Minutes to complete discharge: 55 Discharge Summary Reason For Visit: AMS PULMONARY MASS DEHYDRATION Current Active Problems Altered mental status (Acute) Pleural effusion (Acute) Pulmonary mass (Acute) Atrial fibrillation (Chronic) Condition: Fair - Instructions Diet, Activity, Other Instructions: Your blood pressure pills have been changed, you are now taking 12.5mg of the Lopressor twice daily, 40mg of the Lasix daily and 5mg of the Eliquis twice dailly, resume the rest of your medications as prescribed. Follow-up with Dr. Haley and Dr. Tran regarding these changes in 1 week. You were started on Keppra 500mg 1 tablet twice daily for seizures, continue until you follow-up with a neurologist in 1 week. You are being sent home with oxygen, use with a nasal cannula. Take levaquin 500mg 1 tablet daily for two more days to complete a 7-day course for your UTI. Drink plenty of water. You can have your doctors follow-up regarding the cytology results or call [facility] Medical Records to obtain results of the thoracocentesis. It is recommended that you undergo a biopsy for the masses found in your lungs to determine the cause and repeat chest xray in 6-8 weeks. If you develop chest pain, trouble breathing, repeat episodes of seizures or have any new symptoms, return to the hospital. Referrals: Gini Gresham MD [Staff Physician] - 1 Week Americo Soriano [Primary Care Provider] - 1 Week Gabriel Stovall MD [Staff Physician] - 2 Weeks (new onset seizure, started on Keppra 500mg BID, outpatient evaluation for continuation of therapy.) Fazal Henriquez MD, MD [Staff Physician] - 1 Month Disposition: HOME - Home Medications Comprehensive Discharge Medication List: Ambulatory Orders Ascorbic Acid [Vitamin C] 1,000 mg PO DAILY 11/07/11 Aspirin [ASA -] 81 mg PO DAILY 11/07/11 Ferrous Fumarate [Iron] 65 mg PO DAILY 11/07/11 Glimepiride 1 mg PO DAILY 11/07/11 Vitamin B12 500mg Po Daily 11/07/11 Atorvastatin Ca [Lipitor] 40 mg PO HS 06/08/16 Apixaban [Eliquis -] 5 mg PO BID #20 tablet 06/15/16 Furosemide [Lasix -] 40 mg PO DAILY@1400 #10 tablet 06/15/16 Levetiracetam [Keppra -] 500 mg PO BID #60 tablet 06/15/16 Levofloxacin [Levaquin] 750 mg PO DAILY #2 tab 06/15/16 Metoprolol Tartrate [Lopressor -] 12.5 mg PO BID #20 tablet 06/15/16 Valsartan [Diovan] 40 mg PO DAILY #10 tablet 06/15/16 This patient is new to me today: No Emergency Visit: No Critical Care patient: No - Discharge Referral Referred to [facility] No
[2016-06-15] MEDS: FUROSEMIDE 40 MG TABLET (FP) PO SCH (14:35)
== END 2016-06-15 17:34 | disposition home or self-care (01) | DRG 291 ==
LOC: JER 19:09 → MERGE 06-09 03:50 → JERBED 06-09 03:50 → J5S 06-09 16:35 → J4W 06-09 20:43
PROVIDERS: ADMIT Internal Medicine; ATTEND Internal Medicine
PROC: 4A00X4Z Measurement of Central Nervous Electrical Activity, External Approach (ICD-10-PCS; 2016-06-09)
PROC: 0W993ZX Drainage of Right Pleural Cavity, Percutaneous Approach, Diagnostic (ICD-10-PCS; principal; 2016-06-12)
DX: I13.0 Hypertensive heart and chronic kidney disease with heart failure and stage 1 through stage 4 chronic kidney disease, or unspecified chronic kidney disease (principal); I50.43 Acute on chronic combined systolic (congestive) and diastolic (congestive) heart failure; J96.01 Acute respiratory failure with hypoxia; I48.1 Persistent atrial fibrillation; J90 Pleural effusion, not elsewhere classified; N17.9 Acute kidney failure, unspecified; N39.0 Urinary tract infection, site not specified; R47.01 Aphasia; J98.11 Atelectasis; N18.9 Chronic kidney disease, unspecified; I48.91 Unspecified atrial fibrillation; I25.10 Atherosclerotic heart disease of native coronary artery without angina pectoris; E87.6 Hypokalemia; R56.9 Unspecified convulsions; E78.00 Pure hypercholesterolemia, unspecified; I27.2 Other secondary pulmonary hypertension; D64.9 Anemia, unspecified; D69.6 Thrombocytopenia, unspecified; N28.1 Cyst of kidney, acquired; I44.7 Left bundle-branch block, unspecified; R91.8 Other nonspecific abnormal finding of lung field; I08.1 Rheumatic disorders of both mitral and tricuspid valves; K80.20 Calculus of gallbladder without cholecystitis without obstruction; K43.9 Ventral hernia without obstruction or gangrene; Z87.891 Personal history of nicotine dependence; Z95.1 Presence of aortocoronary bypass graft; Z95.2 Presence of prosthetic heart valve
CPT/HCPCS: 36415; 70450-TC; 70551-TC; 70552-TC; 71010-TC; 71250-TC; 74177-TC; 76942; 80048; 80053; 81003; 81015; 82042; 82150; 82164; 82465; 82550; 82945; 83615; 83718; 83721; 83735; 84100; 84157; 84478; 84484; 85025; 85027; 85610; 86850; 86900; 86901; 87070; 87075; 87086; 87102; 87116; 87186; 87205; 87206; 87210; 87254; 87804; 88108; 88305-TC; 89051; 93005; 93010; 93306-TC; 94761; 95816; 97116-GP; 97161-GP; 99285-25; A9576

== ENCOUNTER 2016-07-06 07:27 | Inpatient (IN) | payer OTHER ==
[2016-07-06] MEDS ORDERED: ASPIRIN 81 MG CHEWABLE TABLETS PO ONE (07:37)
--- NOTE | 2016-07-06 07:37 | PDOC ---
Attending Attestation - Physicial Exam PE: 07/06/16 08:09 Echo performed on 06/09/16 Impression: The left ventricle is moderately dilated. Left ventricular systolic function is severely reduced. There is severe global hypokinesis of the left ventricle. The left atrium is mildly dilated. There is moderate mitral annular calcification. The mitral valve chordae are thickened and/or calcified. There is moderate to severe mitral regurgitation. The mitral regurgitant jet is eccentrically directed. There is moderate tricuspid regurgitation. Right ventricular systolic pressure is elevated at 30-40 mmHg. There is mild aortic sclerosis. Mild aortic regurgitation. Mild pulmonic valvular regurgitation. There is no pericardial effusion. Read by: Dr. Anatoliy Blackburn MD 06/02/2016 at 04:26 PM - Medical Decision Making Chest X-Ray Since 06/13/2016, the congestive and infiltrative changes with pleural fluid persists. Again noted is the large heart with sternal sutures. There is slight rotation to the right. Impression: Little change since prior study. Reported By: Taurus Islas MD 07/06/16 0758 <Melida Kuhn - Last Filed: 07/06/16 08:26> - Resident Resident Name: Aleah Sargent - ED Attending Attestation I have performed the following: I have examined & evaluated the patient, The case was reviewed & discussed with the resident, I agree w/resident's findings & plan, Exceptions are as noted - HPI HPI: 07/06/16 07:47 The patient is an 85 year old male with a significant past medical history of atrial fibrillation (on metoprolol and Eliquis), who presents to the emergency department with palpitations, dyspnea and lower extremity edema. - Physicial Exam PE: 07/06/16 07:48 He is well appearing but in mild respiratory distress He has bibasilar crackles He has bilateral lower extremity pitting edema 07/06/16 08:19 Chest x-ray emergency Department interpretation: Increased interstitial markings bilaterally, bilateral pleural effusions - Critical Care Time Total Critical Care Time: 35 Critical Care Statement: The care of this patient involved high complexity decision making to prevent further life threatening deterioration of the patient 's condition and/or to evalute & treat vital organ system(s) failure or risk of failure. - Medical Decision Making 07/06/16 07:48 The patient is well appearing and in mild respiratory distress EKG is consistent with rapid atrial fibrillation He has signs and symptoms of CHF Will rate control with Cardizem He is already anticoagulated 07/06/16 10:06 Heart rate improved Respiratory distress resolved He is stable for admission to telemetry Labs noted Clinical impression: Rapid atrial fibrillation Acute exacerbation of CHF Case discussed in detail with admitting provider including history, physical exam and ancillary studies. Admitting physician has assumed care for the patient, will follow all pending diagnostics and will complete the evaluation and treatment. <Taurus Lassiter - Last Filed: 07/06/16 10:08> Heart Score/ECG Review - ECG Intrepretation Comment:: 07/06/16 07:36 Atrial fibrillation with ventricular response of 122, normal axis, nonspecific intraventricular lock, poor R wave progression, inverted T waves in 1, aVL, V6, flat T waves in 2,3, aVF <Taurus Lassiter - Last Filed: 07/06/16 10:08>
[2016-07-06] MEDS ORDERED: dilTIAZem HCL 125 MG/25 ML - 25 ML VIAL ONE ×2 (07:46→07:57)
--- NOTE | 2016-07-06 07:46 | PDOC ---
History of Present Illness - History of Present Illness Initial Comments: 07/06/16 07:49 The patient is an 85 year old male with a past medical hx of HTN, Afib on Eliquis, s/p CABG (2011) and s/p valve replacement (2011) who presents to the ED complaining of dyspnea and palpitations since 0400 this morning. Per EMS, the patient woke up at 0400 this morning with dyspnea and palpitations. He then began to feel chest discomfort around 0700 this morning and called 911. The patient denies any significant chest pain. En route to the ED, EMS notes Afib at a rate of 132-150 BPM. The patients blood pressure was 132/78. The reports he is oxygen dependent at home when he sleeps. She reports last night the patient felt shaky and he has had bilateral lower extremity edema for 2 weeks. The patient reports cough, but denies fever, chills The patient denies dysuria, frequency The patient denies nausea, vomiting, diarrhea, abdominal pain The patient saw his PCP last Sunday and his [facility] on Sunday. He is scheduled for clipping for valve leak on July 17 at [facility]. Allergies: None reported. Past Surgical History: CABG (1998); Valve replacement (2011) Social History: Former smoker. Denies alcohol or drug use. PCP: Dr. Soriano <Melida Kuhn - Last Filed: 07/06/16 08:51> <Aleah Sargent - Last Filed: 07/06/16 10:41> - General Stated Complaint: DIFFICULTY BREATHING Time Seen by Provider: 07/06/16 07:35 Past History <Melida Kuhn - Last Filed: 07/06/16 08:51> - Past Medical History Anemia: No Asthma: No Cancer: No Cardiac Disorders: Yes (A-FIB, CABG) CVA: No COPD: No CHF: Yes Dementia: No Diabetes: Yes (NIDDM) GI Disorders: No Disorders: No HTN: Yes Hypercholesterolemia: Yes Liver Disease: No Seizures: No Thyroid Disease: No - Surgical History Abdominal Surgery: No Appendectomy: No Cardiac Surgery: Yes (open Heart Sx) Cholecystectomy: No Lung Surgery: No Neurologic Surgery: No Orthopedic Surgery: No - Psycho/Social/Smoking Cessation Hx Anxiety: No Suicidal Ideation: No Smoking Status: No Smoking History: Former smoker Have you smoked in the past 12 months: No Number of Cigarettes Smoked Daily: 0 If you are a former smoker, when did you quit?: 20 yrs ago Hx Alcohol Use: No Drug/Substance Use Hx: No Substance Use Type: None Hx Substance Use Treatment: No <Aleah Sargent - Last Filed: 07/06/16 10:41> - Past Medical History Allergies/Adverse Reactions: Allergies Allergy/AdvReac Type Severity Reaction Status Date / Time No Known Allergies Allergy Verified 07/06/16 07:53 Home Medications: Ambulatory Orders Atorvastatin Ca [Lipitor] 40 mg PO HS 06/08/16 Levetiracetam [Keppra -] 500 mg PO BID #60 tablet 06/15/16 Valsartan [Diovan] 40 mg PO DAILY #10 tablet 06/15/16 Apixaban [Eliquis] 2.5 mg PO DAILY 07/06/16 Furosemide [Lasix -] 60 mg PO DAILY@1400 07/06/16 Metoprolol Tartrate [Lopressor -] 25 mg PO BID 07/06/16 Review of Systems - Review of Systems Able to Perform ROS?: Yes Comments:: 07/06/16 07:54 CONSTITUTIONAL: Absent: fever, chills, diaphoresis, generalized weakness, malaise, loss of appetite HEENT: Absent: rhinorrhea, nasal congestion, throat pain, throat swelling, difficulty swallowing, mouth swelling, ear pain, eye pain, visual Changes CARDIOVASCULAR: +Palpitations, bilateral lower extremity edema, chest discomfort. Absent: chest pain, syncope, lightheadedness RESPIRATORY: +Dyspnea, cough. Absent: wheezing, stridor, hemoptysis GASTROINTESTINAL: Absent: abdominal pain, abdominal distension, nausea, vomiting, diarrhea, constipation, melena, hematochezia GENITOURINARY: Absent: dysuria, frequency, urgency, hesitancy, hematuria, flank pain, genital pain MUSCULOSKELETAL: Absent: myalgia, arthralgia, joint swelling SKIN: Absent: rash, itching, pallor HEMATOLOGIC/IMMUNOLOGIC: Absent: easy bleeding, easy bruising, lymphadenopathy, frequent infections ENDOCRINE: Absent: unexplained weight gain, unexplained weight loss, heat intolerance, cold intolerance NEUROLOGIC: Absent: headache, focal weakness or paresthesias, dizziness, unsteady gait, seizure, mental status changes, bladder or bowel incontinence PSYCHIATRIC: Absent: anxiety, depression, suicidal or homicidal ideation, hallucinations. <Melida Kuhn - Last Filed: 07/06/16 08:51> *Physical Exam - Physical Exam Comments: 07/06/16 08:51 GENERAL: Well developed, well nourished. Awake and alert. In mild respiratory distress. HEENT: Normocephalic, atraumatic. PERRLA, EOMI. No conjunctival pallor. Sclera are non- icteric. Moist mucous membranes. Oropharynx is clear. NECK: Supple. Full ROM. No JVD. Carotid pulses 2+ and symmetric, without bruits. No thyromegaly. No lymphadenopathy. CARDIOVASCULAR: +Irregularly irregular. Systolic murmur. Distal pulses are 2+ and symmetric. PULMONARY: +Mild respiratory distress. Bibasilar crackles. No wheezing, rales or rhonchi. ABDOMINAL: Soft. Non-tender. Non-distended. No rebound or guarding. No organomegaly. MUSCULOSKELETAL Normal range of motion at all joints. No bony deformities or tenderness. No CVA tenderness. EXTREMITIES: +Bilateral lower extremity pitting edema up to mid valdes. No cyanosis. No clubbing. No calf tenderness. SKIN: Warm and dry. Normal capillary refill. No rashes. No jaundice. NEUROLOGICAL: Alert, awake, appropriate. Cranial nerves 2-12 intact. No deficits to light touch and temperature in face, upper extremities and lower extremities. No motor deficits in the in face, upper extremities and lower extremities. Normal speech. PSYCHIATRIC: Cooperative. Good eye contact. Appropriate mood and affect. <Melida Kuhn - Last Filed: 07/06/16 08:51> Heart Score/ECG Review - ECG Impressions Comment:: 07/06/16 08:11 Atrial fibrillation with ventricular response of 122, normal axis, nonspecific intraventricular lock, poor R wave progression, inverted T waves in 1, aVL, V6, flat T waves in 2,3, aVF <Melida Kuhn - Last Filed: 07/06/16 08:51> ED Treatment Course - LABORATORY CBC & Chemistry Diagram: 07/06/16 08:30 07/06/16 08:30 - RADIOLOGY Radiograph Interpretation: 07/06/16 08:03 Chest X-Ray Since 06/13/2016, the congestive and infiltrative changes with pleural fluid persists. Again noted is the large heart with sternal sutures. There is slight rotation to the right. Impression: Little change since prior study. Reported By: Taurus Islas MD 07/06/16 0758 Echo performed on 06/09/16 Impression: The left ventricle is moderately dilated. Left ventricular systolic function is severely reduced. There is severe global hypokinesis of the left ventricle. The left atrium is mildly dilated. There is moderate mitral annular calcification. The mitral valve chordae are thickened and/or calcified. There is moderate to severe mitral regurgitation. The mitral regurgitant jet is eccentrically directed. There is moderate tricuspid regurgitation. Right ventricular systolic pressure is elevated at 30-40 mmHg. There is mild aortic sclerosis. Mild aortic regurgitation. Mild pulmonic valvular regurgitation. There is no pericardial effusion. Read by: Dr. Anatoliy Blackburn MD 06/02/2016 at 04:26 PM <Melida Kuhn - Last Filed: 07/06/16 08:51> - LABORATORY CBC & Chemistry Diagram: 07/06/16 08:30 07/06/16 08:30 <Aleah Sargent - Last Filed: 07/06/16 10:41> Medical Decision Making - Medical Decision Making 07/06/16 07:48 Patient seen and examined at bed side. Vitals noted, HR 125 bpm, rest unremarkable. Patient looks he is in mild respiratory distress. Will order CBC, CMP, INR, CXR, UA Nasal oxygen PRN Cardizem 10mg IV stat Cardizem drip started @ 5mg IV Lasix 40mg stat After lasix, patient's urinary output was 150mls. Reviewed recent hospitalization on 06/09/2016 presentation with new onset AMS and diffusse weakness( suspicious for neuro-cardiogenic syncope (vasodepressor vs. cardioinhibitory) vs. sustained arrhythmia (ventricular). During his last admission, thoracocentesis was done for B/L pleural effusion, cytology was negative, Echo showed Moderate TR and SevereMR with low EF. Was seen by Dr. Blackburn last admission. 07/06/16 08:30 Patient's SOB is getting worse. Will add IV Lasix 40mg stat. Patient also received 30mg Cardizem. And now HR is between 80-90's 07/06/16 09:29 Spoke with Mirlande White, will admit the patient in Telemetry. On the basis of history, physical examination and Investigation, his symptoms are most likely due to CHF exacerbation with rapid atrial fibrillation. A/P # Rapid atrial fibrillation with CHF exacerbation-CHADVASc Score-5; HAS-BLED score-2 Patient presented with SOB and palpitation Now rate controlled with 40mg of cardizem PO Received IV lasix 80mg total, urine output 310mls On nasal oxygen 4L Admit on Telemetry Consult for Dr. Blackburn placed Would consider Echo. Illness, Investigation and Plan of care explained to the patient and his . They verbalized understanding. Case seen and discussed with Dr. Lassiter. <Aleah Sargent - Last Filed: 07/06/16 10:41> *DC/Admit/Observation/Transfer <Melida Kuhn - Last Filed: 07/06/16 08:51> - Discharge Dispostion Admit: Yes <Aleah Sargent - Last Filed: 07/06/16 10:41> Diagnosis at time of Disposition: Atrial fibrillation by electrocardiogram, CHF (congestive heart failure)
[2016-07-06] MEDS ORDERED: dilTIAZem HCL 50 MG/10 ML - 10 ML VIAL IVPUSH ONE (07:47)
[2016-07-06] MEDS ORDERED: ASPIRIN 81 MG CHEWABLE TABLETS ONE (07:49)
[2016-07-06] MEDS ORDERED: FUROSEMIDE 40 MG/4 ML INJECTABLE VIAL IVPUSH ONE ×2 (08:20→09:24)
[2016-07-06] MEDS ORDERED: FUROSEMIDE 40 MG/4 ML INJECTABLE VIAL ONE ×3 (08:21→14:08)
[2016-07-06] MEDS ORDERED: dilTIAZem HCL 30 MG TABLET (FP) PO ONE (08:44)
[2016-07-06 08:46] LABS: BASOPHIL 0.3 % (0-2.0); EOSINOPHIL 0.3 % (0-4.5); MCH 29.8 pg (25.7-33.7); MCHC 32.2 g/dl (32.0-35.9); MEAN CELL VOLUME 92.5 fl (80-96); MEAN PLT VOLUME 8.5 fl (7.5-11.1); NEUTROPHILS 77.5 % (42.8-82.8); PLATELET COUNT 102 K/MM3 (134-434); RDW 18.3 % (11.9-15.9); WHITE BLOOD COUNT 6.9 K/mm3 (4.0-10.0)
[2016-07-06] MEDS ORDERED: dilTIAZem HCL 30 MG TABLET (FP) ONE (08:46)
[2016-07-06 09:03] LABS: INR 1.36 (0.82-1.09); PROTHROMBIN TIME (PATIENT) 15.1 SEC (9.98-11.88)
[2016-07-06 09:06] LABS: ACTIVATED PTT 35.3 SECONDS (26.9-34.4); ALBUMIN 3.5 g/dl (3.4-5.0); ANION GAP 8 (8-16); BILIRUBIN,TOTAL 0.9 mg/dL (0.2-1.0); CALCIUM 8.7 mg/dL (8.5-10.1); CO2 30 mmol/L (21-32); CREATININE 1.1 mg/dL (0.7-1.3); GLUCOSE,RANDOM 127 mg/dL (74-106); SGPT/ALT 18 U/L (12-78)
[2016-07-06 09:15] LABS: ALK PHOS 99 U/L (45-117); THYROID STIMULATING HORMONE 1.97 uIU/ml (0.358-3.74); TROPONIN I 0.02 ng/ml (0.00-0.05)
[2016-07-06] MEDS: DILTIAZEM INJECTION 125 MG in DEXTROSE 5%-WATER - 100 ML IVPB SCH (09:15)
[2016-07-06 09:22] LABS: MAGNESIUM 2.1 mg/dL (1.8-2.4); SGOT/AST 28 U/L (15-37)
[2016-07-06 09:24] LABS: URINE APPEARANCE CLEAR; URINE BILIRUBIN NEGATIVE (NEGATIVE); URINE BLOOD NEGATIVE (NEGATIVE); URINE COLOR LTYELLOW; URINE GLUCOSE (UA) NEGATIVE (NEGATIVE); URINE KETONE NEGATIVE (NEGATIVE); URINE LEUK ESTERASE NEGATIVE (NEGATIVE); URINE NITRITE NEGATIVE (NEGATIVE); URINE PROTEIN NEGATIVE (NEGATIVE); URINE UROBILINOGEN NEGATIVE E.U./dl (0.2-1.0)
--- NOTE | 2016-07-06 09:58 | HP ---
CHIEF COMPLAINT: Shortness of Breath PCP: Dr. Soriano HISTORY OF PRESENT ILLNESS: HTN, HLD, CKD, CAD s/p CABG (2011) and s/p mitral regurgitation s/p failed valve repair (2011; scheduled for consultation 07/17 at [facility]), LV diastolic dysfunction, severely reduced EF, persistent atrial fibrillation on Eliquis, and anemia, s/p recent admission for new-onset seizure activity, thought to be a syncopal episode, neurocardiogenic vs. vasodepressor in origin. He underwent right thoracentesis with negative cytology and cultures. He was also treated for UTI. He was discharged on home O2 following that admission and was also started on Keppra. He returns today with shortness of breath, worsening lower extremity edema, and palpitations since last night. denies any dietary indiscretion. He was previously stable on 2L O2 via nasal cannula. ER course was notable for: (1) Afib with RVR @ 118bpm, ventricular rate normalized with Cardizem 10mg IVP and 30mg po (2) SpO2 80% on room air per verbal report; 93% on 4L (3) CXR: congestive changes with bilateral pleural effusions also noted on prior study (4) Plt 102- baseline, Hgb 10.0, baseline Recent Travel: None Social History: Lives with ; able to bathe and dress, walks with a cane Smoking: Started smoking at the age of 14 years, 1 pack/day , quit 20 yrs ago. Alcohol: None Family History: Non-contributory to this admission Allergies No Known Allergies Allergy (Verified 07/06/16 07:53) HOME MEDICATIONS: Home Medications Medication Instructions Recorded Atorvastatin Ca [Lipitor] 40 mg PO HS 06/08/16 Levetiracetam [Keppra -] 500 mg PO BID #60 tablet 06/15/16 Valsartan [Diovan] 40 mg PO DAILY #10 tablet 06/15/16 Apixaban [Eliquis] 2.5 mg PO DAILY 07/06/16 Furosemide [Lasix -] 60 mg PO DAILY@1400 07/06/16 Metoprolol Tartrate [Lopressor -] 25 mg PO BID 07/06/16 REVIEW OF SYSTEMS CONSTITUTIONAL: Absent: fever, chills, diaphoresis, generalized weakness, malaise, loss of appetite, weight change HEENT: Absent: rhinorrhea, nasal congestion, throat pain, throat swelling, difficulty swallowing, mouth swelling, ear pain, eye pain, visual changes CARDIOVASCULAR: Palpitations, worsening LE edema Absent: chest pain, syncope, lightheadedness RESPIRATORY: Shortness of breath, chronic dry cough Absent: wheezing, stridor, hemoptysis GASTROINTESTINAL: Absent: abdominal pain, abdominal distension, nausea, vomiting, diarrhea, constipation, melena, hematochezia GENITOURINARY: Absent: dysuria, frequency, urgency, hesitancy, hematuria, flank pain, genital pain MUSCULOSKELETAL: Absent: myalgia, arthralgia, joint swelling, back pain, neck pain SKIN: Absent: rash, itching, pallor HEMATOLOGIC/IMMUNOLOGIC: Absent: easy bleeding, easy bruising, lymphadenopathy, frequent infections ENDOCRINE: Absent: unexplained weight gain, unexplained weight loss, heat intolerance, cold intolerance NEUROLOGIC: Absent: headache, focal weakness or paresthesias, dizziness, unsteady gait, seizure, mental status changes, bladder or bowel incontinence PSYCHIATRIC: Absent: anxiety, depression, suicidal or homicidal ideation, hallucinations. PHYSICAL EXAMINATION Vital Signs - 24 hr 07/06/16 07/06/16 07/06/16 07:54 08:09 09:12 Temperature 98.2 F Pulse Rate 118 H 118 H Pulse Rate [ 98 H Left Apical] Respiratory 20 20 Rate Blood Pressure 122/90 Blood Pressure 104/78 [Right Arm] O2 Sat by Pulse 100 98 93 L Oximetry (%) GENERAL: Awake, alert, and fully oriented, in no acute distress. HEAD: Normal with no signs of trauma. EYES: Pupils equal, round and reactive to light, extraocular movements intact, sclera anicteric, conjunctiva clear. No lid lag. EARS, NOSE, THROAT: Ears normal, nares patent, oropharynx clear without exudates. Moist mucous membranes. NECK: Normal range of motion, supple without lymphadenopathy, JVD, or masses. LUNGS: Scattered rales; diminished breath sounds bilateral bases. No wheezes, and no crackles. No accessory muscle use. HEART: Irregular rhythm. S1 and S2 without murmur, rub or gallop. ABDOMEN: Soft, nontender, not distended, normoactive bowel sounds, no guarding, no rebound, no masses. No hepatomegaly or splenomegaly. MUSCULOSKELETAL: Normal range of motion at all joints. No bony deformities or tenderness. No CVA tenderness. UPPER EXTREMITIES: 2+ pulses, warm, well-perfused. No cyanosis. No clubbing. Cap refill <2 seconds. No peripheral edema. LOWER EXTREMITIES: 2+ pulses, warm, well-perfused. No calf tenderness. 3+ pitting edema bilaterally. NEUROLOGICAL: Cranial nerves II-XII intact. Normal speech. Normal gait. PSYCHIATRIC: Cooperative. Good eye contact. Appropriate mood and affect. SKIN: Warm, dry, normal turgor, no rashes or lesions noted. Laboratory Results - last 24 hr 07/06/16 07/06/16 07/06/16 08:30 08:30 08:30 WBC 6.9 RBC 3.36 L Hgb 10.0 L D Hct 31.1 L MCV 92.5 MCHC 32.2 RDW 18.3 H Plt Count 102 L MPV 8.5 Neutrophils % 77.5 Lymphocytes % 15.6 Monocytes % 6.3 Eosinophils % 0.3 Basophils % 0.3 INR 1.36 H PTT (Actin FS) 35.3 H D Sodium 142 Potassium 4.4 D Chloride 104 Carbon Dioxide 30 Anion Gap 8 BUN 23 H D Creatinine 1.1 Creat Clearance w eGFR > 60 Random Glucose 127 H Calcium 8.7 Magnesium 2.1 Total Bilirubin 0.9 AST 28 D ALT 18 D Alkaline Phosphatase 99 Creatine Kinase 71 Troponin I 0.02 D B-Natriuretic Peptide Total Protein 7.0 Albumin 3.5 TSH 1.97 Urine Color Urine Appearance Urine pH Ur Specific [place] Urine Protein Urine Glucose (UA) Urine Ketones Urine Blood Urine Nitrite Urine Bilirubin Urine Urobilinogen Ur Leukocyte Esterase 07/06/16 07/06/16 08:30 09:19 WBC RBC Hgb Hct MCV MCHC RDW Plt Count MPV Neutrophils % Lymphocytes % Monocytes % Eosinophils % Basophils % INR PTT (Actin FS) Sodium Potassium Chloride Carbon Dioxide Anion Gap BUN Creatinine Creat Clearance w eGFR Random Glucose Calcium Magnesium Total Bilirubin AST ALT Alkaline Phosphatase Creatine Kinase Troponin I B-Natriuretic Peptide 9109.00 H Total Protein Albumin TSH Urine Color Ltyellow Urine Appearance Clear Urine pH 5.0 Ur Specific [place] 1.012 Urine Protein Negative Urine Glucose (UA) Negative Urine Ketones Negative Urine Blood Negative Urine Nitrite Negative Urine Bilirubin Negative Urine Urobilinogen Negative Ur Leukocyte Esterase Negative ASSESSMENT/PLAN: 85 year old male with decompensated CHF and Afib with RVR. Problem List - Problem (1) CHF (congestive heart failure) Assessment/Plan: -Monitor on telemetry -Serial troponins to rule out MA -On Lasix 60mg po daily at home; will give 40m IVP bid here as Cr tolerates ( 1.1 today) -Sodium restriction -Strict I/O -Daily weights -Echo done on previous admission -Cardiology evaluation Code(s): I50.9 - HEART FAILURE, UNSPECIFIED (2) Diastolic dysfunction with acute on chronic heart failure Assessment/Plan: -As above Code(s): I50.33 - ACUTE ON CHRONIC DIASTOLIC (CONGESTIVE) HEART FAILURE (3) Pleural effusion Assessment/Plan: -Unchanged -Recent throcentesis with negative cultures/cytology -Diuresis as above (4) Atrial fibrillation with rapid ventricular response Assessment/Plan: -Continue Lopressor -Add Cardizem 30mg po qid for now pending cardiology recommendations as rate well-controlled with this in ED Code(s): I48.91 - UNSPECIFIED ATRIAL FIBRILLATION (5) HTN (hypertension) Assessment/Plan: -At goal -Continue home Diovan, Lopressor Code(s): I10 - ESSENTIAL (PRIMARY) HYPERTENSION Qualifiers: Hypertension type: essential hypertension Qualified Code(s): I10 - Essential (primary) hypertension (6) Hypercholesterolemia Assessment/Plan: -Atorvastatin Code(s): E78.0 - PURE HYPERCHOLESTEROLEMIA * DO NOT USE * (7) Mitral regurgitation Assessment/Plan: -Has consultation for revision of valve repair scheduled in July Code(s): I34.0 - NONRHEUMATIC MITRAL (VALVE) INSUFFICIENCY (8) Seizures Assessment/Plan: -Continue Keppra -Needs neurology followup to discuss whether needs to continue (9) DVT prophylaxis Assessment/Plan: -Ambulation with PT -Eliquis Code(s): [id number] - Visit type - Emergency Visit Emergency Visit: Yes ED Registration Date: 07/06/16 Care time: The patient presented to the Emergency Department on the above date and was hospitalized for further evaluation of their emergent condition. - New Patient This patient is new to me today: Yes Date on this admission: 07/06/16 - Critical Care Critical Care patient: No
--- NOTE | 2016-07-06 11:54 | CON.CARD ---
Consult Consult Specialty:: Cardiology Referred by:: Hospitalist Medicine Reason for Consultation:: Afib, diastolic failure - History of Present Illness Chief Complaint: Dyspnea History of Present Illness: 85 yo HTN, HLD, CKD, CAD s/p CABG (2011) and s/p mitral regurgitation s/p failed valve repair (2011; scheduled for consultation 07/17 at [facility]), LV systolic dysfunction, severely reduced EF, persistent atrial fibrillation on Eliquis, and anemia, s/p recent admission for new-onset seizure activity, thought to be a syncopal episode, neurocardiogenic vs. vasodepressor in origin. He underwent right thoracentesis with negative cytology and cultures. He was also treated for UTI. He was discharged on home O2 following that admission and was also started on Keppra. He returns today with shortness of breath, worsening lower extremity edema, chest tightness, orthopnea and palpitations since last night. denies any dietary or medication indiscretion. He was previously stable on 2L O2 via nasal cannula. PMD: Dr. 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 Cardio/Vascular: Yes: AFIB, Murmur, Other (Valve replacement) - Past Surgical History Past Surgical History: Yes: CABG, Valve Replacement - Alcohol/Substance Use Hx Alcohol Use: No History of Substance Use: reports: None - Smoking History Smoking history: Former smoker Have you smoked in the past 12 months: No Aproximately how many cigarettes per day: 0 If you are a former smoker, when did you quit?: 20 yrs ago - Social History ADL: Independent Home Medications - Allergies Allergies/Adverse Reactions: Allergies Allergy/AdvReac Type Severity Reaction Status Date / Time No Known Allergies Allergy Verified 07/06/16 07:53 - Home Medications Home Medications: Ambulatory Orders Atorvastatin Ca [Lipitor] 40 mg PO HS 06/08/16 Levetiracetam [Keppra -] 500 mg PO BID #60 tablet 06/15/16 Valsartan [Diovan] 40 mg PO DAILY #10 tablet 06/15/16 Apixaban [Eliquis] 2.5 mg PO DAILY 07/06/16 Furosemide [Lasix -] 60 mg PO DAILY@1400 07/06/16 Metoprolol Tartrate [Lopressor -] 25 mg PO BID 07/06/16 Review of Systems - Review of Systems Cardiovascular: reports: Chest Pain, Edema, Shortness of Breath Respiratory: reports: Orthopnea - Risk Factors Known Risk Factors: Yes: Age Vital Signs: Vital Signs Temperature 98.2 F 07/06/16 07:54 Pulse Rate 86 07/06/16 10:39 Respiratory Rate 22 07/06/16 10:39 Blood Pressure 116/69 07/06/16 10:39 O2 Sat by Pulse Oximetry (%) 93 L 07/06/16 09:12 Constitutional: Yes: No Distress, Calm Neck: Yes: Supple Respiratory: Yes: Regular, Diminished, On Nasal O2 Gastrointestinal: Yes: Normal Bowel Sounds, Soft Cardiovascular: Yes: Pulse Irregular JVD: Yes Carotid Bruit: No Heart Sounds: Yes: S1, S2 Murmur: Yes: Systolic Murmur, Grade 2 Edema: Yes Edema: LLE: 2+, RLE: 2+ - Other Data Labs, Other Data: INR, PTT INR 1.36 (0.82-1.09) H 07/06/16 08:30 Afib @ 84 LBBB similar to previous Echo: Report Reviewed Ejection Fraction %: LVEF < 40 % Imaging - Results Chest X-ray: Report Reviewed (07/06/16 08:03 Chest X-Ray Since 06/13/2016, the congestive and infiltrative changes with pleural fluid persists. Again noted is the large heart with sternal sutures. There is slight rotation to the right. Impression: Little change since prior study. Reported By: Taurus Islas MD 07/06/16 [id number]) Problem List - Problems (1) Atrial fibrillation with rapid ventricular response Code(s): I48.91 - UNSPECIFIED ATRIAL FIBRILLATION (3) Bundle branch block, left Code(s): I44.7 - LEFT BUNDLE-BRANCH BLOCK, UNSPECIFIED (4) Coronary artery disease Code(s): I25.10 - ATHSCL HEART DISEASE OF [place] CORONARY ARTERY W/O ANG PCTRS Qualifiers: Coronary Disease-Associated Artery/Lesion type: [place] artery [place] vs. transplanted heart: [place] heart Associated angina: without angina Qualified Code(s): I25.10 - Atherosclerotic heart disease of [place] coronary artery without angina pectoris (5) HTN (hypertension) Code(s): I10 - ESSENTIAL (PRIMARY) HYPERTENSION Qualifiers: Hypertension type: essential hypertension Qualified Code(s): I10 - Essential (primary) hypertension (6) Hypercholesterolemia Code(s): E78.0 - PURE HYPERCHOLESTEROLEMIA * DO NOT USE * (7) Mitral regurgitation Code(s): I34.0 - NONRHEUMATIC MITRAL (VALVE) INSUFFICIENCY Qualifiers: Cardiac valve disease etiology: nonrheumatic Qualified Code(s): I34.0 - Nonrheumatic mitral (valve) insufficiency (8) Acute on chronic systolic heart failure, NYHA class 3 Code(s): I50.23 - ACUTE ON CHRONIC SYSTOLIC (CONGESTIVE) HEART FAILURE (9) S/P CABG (coronary artery bypass graft) Code(s): Z95.1 - PRESENCE OF AORTOCORONARY BYPASS GRAFT (10) S/P mitral valve repair Code(s): Z98.89 - OTHER SPECIFIED POSTPROCEDURAL STATES * DO NOT USE * Assessment/Plan Echo performed on 06/09/16 Impression: The left ventricle is moderately dilated. Left ventricular systolic function is severely reduced. There is severe global hypokinesis of the left ventricle. The left atrium is mildly dilated. There is moderate mitral annular calcification. The mitral valve chordae are thickened and/or calcified. There is moderate to severe mitral regurgitation. The mitral regurgitant jet is eccentrically directed. There is moderate tricuspid regurgitation. Right ventricular systolic pressure is elevated at 30-40 mmHg. There is mild aortic sclerosis. Mild aortic regurgitation. Mild pulmonic valvular regurgitation. There is no pericardial effusion. Read by: Dr. Anatoliy Blackburn MD 06/02/2016 at 04:26 PM 1. Acute on chronic systolic failure class III NYHA classification 2. 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 Persistent atrial fibrillation with RVR [id number] score of 5 on NOAC 5. HTN/HCVD 6. Hypercholesterolemia 7. CKD 8. Anemia and thrombocytopenia 9. Neuro-cardiogenic syncope (vasodepressor vs. cardioinhibitory) vs. sustained arrhythmia (ventricular) vs seizure d/o PLAN: 1. IV diuresis with monitor diuretic response, renal fxn and electolytes 2. Continue Toprol XL 25 bid and Diovan 40 qd hemodynamics permitting 3. Continue Lipitor 40 qhs 4. Continue Eliquis 2.5 bid 5. Has consultation for Mitraclip eval scheduled in July 17. Thank you for consultative opportunity
[2016-07-06] MEDS: METOPROLOL SUCCINATE 25 MG TAB.SR.24H (FP) PO SCH ×2 (12:39→21:48)
[2016-07-06] MEDS ORDERED: dilTIAZem HCL 30 MG TABLET (FP) PO SCH (14:00)
[2016-07-06] MEDS ORDERED: DOCUSATE SODIUM 100 MG CAPSULE (FP) PO ONE (14:07)
[2016-07-06] MEDS: FUROSEMIDE 40 MG/4 ML INJECTABLE VIAL IVPUSH SCH (14:09)
[2016-07-06] MEDS: DOCUSATE SODIUM 100 MG CAPSULE (FP) PO SCH ×2 (14:14→21:48)
--- NOTE | 2016-07-06 14:57 | EKG ---
Test Reason : Blood Pressure : / mmHG Vent. Rate : 084 BPM Atrial Rate : 060 BPM P-R Int : 000 ms QRS Dur : 168 ms QT Int : 422 ms P-R-T Axes : 000 057 168 degrees QTc Int : 498 ms ATRIAL FIBRILLATION WITH PREMATURE VENTRICULAR OR ABERRANTLY CONDUCTED COMPLEXES LEFT BUNDLE BRANCH BLOCK ABNORMAL ECG WHEN COMPARED WITH ECG OF 06-JUL-2016 07:33, QRS DURATION HAS INCREASED T WAVE INVERSION MORE EVIDENT IN LATERAL LEADS Confirmed by PAULIE HAWK MD ([id number]) on 07/06/2016 2:56:52 PM Referred By: Confirmed By:PAULIE HAWK MD
--- NOTE | 2016-07-06 15:00 | EKG ---
Test Reason : Blood Pressure : / mmHG Vent. Rate : 122 BPM Atrial Rate : 111 BPM P-R Int : 000 ms QRS Dur : 142 ms QT Int : 310 ms P-R-T Axes : 000 062 184 degrees QTc Int : 441 ms ATRIAL FIBRILLATION WITH RAPID VENTRICULAR RESPONSE NON-SPECIFIC INTRA-VENTRICULAR CONDUCTION BLOCK POSSIBLE ANTEROLATERAL INFARCT , AGE UNDETERMINED T WAVE ABNORMALITY, CONSIDER INFERIOR ISCHEMIA ABNORMAL ECG WHEN COMPARED WITH ECG OF 07-NOV-2011 21:17, ST NO LONGER DEPRESSED IN LATERAL LEADS T WAVE INVERSION LESS EVIDENT IN INFERIOR LEADS T WAVE INVERSION LESS EVIDENT IN LATERAL LEADS Confirmed by PAULIE HAWK MD ([id number]) on 07/06/2016 2:59:43 PM Referred By: Confirmed By:PAULIE HAWK MD
[2016-07-06 16:02] LABS: TROPONIN I 0.04 ng/ml (0.00-0.05)
[2016-07-06 16:53] VITALS: BMI 24.3
[2016-07-06] MEDS: ATORVASTATIN CA 40 MG TABLET (FP) PO SCH (21:48)
[2016-07-06] MEDS: APIXABAN 2.5 MG TABLET PO SCH (21:48)
[2016-07-06] MEDS: levETIRAcetam 500 MG TABLET (FP) PO SCH (21:48)
[2016-07-06] MEDS ORDERED: METOPROLOL TARTRATE 25 MG TABLET (FP) PO SCH (22:00)
[2016-07-07] MEDS: FUROSEMIDE 40 MG/4 ML INJECTABLE VIAL IVPUSH SCH ×2 (05:30→14:34)
[2016-07-07] MEDS: DOCUSATE SODIUM 100 MG CAPSULE (FP) PO SCH ×3 (05:30→21:45)
[2016-07-07 07:17] LABS: BASOPHIL 0.4 % (0-2.0); EOSINOPHIL 0.3 % (0-4.5); MCH 29.9 pg (25.7-33.7); MCHC 32.9 g/dl (32.0-35.9); MEAN CELL VOLUME 90.9 fl (80-96); MEAN PLT VOLUME 8.4 fl (7.5-11.1); NEUTROPHILS 80.1 % (42.8-82.8); PLATELET COUNT 105 K/MM3 (134-434)
[2016-07-07 08:02] LABS: ALBUMIN 3.5 g/dl (3.4-5.0); ANION GAP 9 (8-16); CALCIUM 8.9 mg/dL (8.5-10.1); CO2 34 mmol/L (21-32); GLUCOSE,RANDOM 116 mg/dL (74-106); MAGNESIUM 2.2 mg/dL (1.8-2.4); SGOT/AST 10 U/L (15-37); SGPT/ALT 16 U/L (12-78)
[2016-07-07 08:09] LABS: ALK PHOS 94 U/L (45-117); BILIRUBIN,TOTAL 0.9 mg/dL (0.2-1.0); CREATININE 1.1 mg/dL (0.7-1.3); TROPONIN I 0.03 ng/ml (0.00-0.05)
[2016-07-07] MEDS: DILTIAZEM INJECTION 125 MG in DEXTROSE 5%-WATER - 100 ML IVPB SCH (08:59)
[2016-07-07] MEDS: levETIRAcetam 500 MG TABLET (FP) PO SCH ×2 (09:15→21:44)
[2016-07-07] MEDS: VALSARTAN 40 MG TABLET (FP) PO SCH (09:15)
[2016-07-07] MEDS: APIXABAN 2.5 MG TABLET PO SCH ×2 (09:15→21:45)
[2016-07-07] MEDS: METOPROLOL SUCCINATE 25 MG TAB.SR.24H (FP) PO SCH ×2 (09:15→21:45)
[2016-07-07] MEDS ORDERED: APIXABAN 2.5 MG TABLET PO SCH (10:00)
--- NOTE | 2016-07-07 13:08 | PN ---
Progress Note (short form) - Note Progress Note: S: 85 year old gentleman, with history of CAD, S/P CABG, mitral valvular disease s/p mitral valve repair (Failed), Mitral regurgitation, hypertension, hypercholesterolemia, patient admitted with congestive heart failure, and also is known to have severe left ventricular systolic dysfunction, tricuspid regurgitation, atrial fibrillation. No further dyspnes reported, history of peripheral edema which has decreased since hospitalization, no PND or orthopnea, no history of chest pain or discomfort. Active Medications Generic Name Dose Route Start Last Admin Trade Name Job PRN Reason Stop Dose Admin Apixaban 2.5 mg 07/06/16 22:00 07/07/16 09:15 Eliquis - PO 2.5 mg BID SANDIE Administration Atorvastatin Calcium 40 mg 07/06/16 22:00 07/06/16 21:48 Lipitor - PO 40 mg HS SANDIE Administration Docusate Sodium 100 mg 07/06/16 14:00 07/07/16 05:30 Colace - PO 100 mg TID SANDIE Administration Furosemide 40 mg 07/06/16 14:00 07/07/16 05:30 Lasix Injection - IVPUSH 40 mg BID@0600,1400 SANDIE Administration Diltiazem HCl 125 mg/ Dextrose 125 mls @ 5 mls/hr 07/06/16 08:30 07/07/16 08:59 IVPB Not Given TITR SANDIE Protocol 5 MG/HR Levetiracetam 500 mg 07/06/16 22:00 07/07/16 09:15 Keppra - PO 500 mg BID SANDIE Administration Metoprolol Succinate 25 mg 07/06/16 12:30 07/07/16 09:15 Toprol Xl - PO 25 mg BID SANDIE Administration Valsartan 40 mg 07/07/16 10:00 07/07/16 09:15 Diovan - PO 40 mg DAILY SANDIE Administration O: 85 year old male was in no acute distress, no pallor, cyanosis, clubbing, or jaundice. Last Vital Signs Temp Pulse Resp BP Pulse Ox 98.1 F 109 H 20 114/51 93 L 07/07/16 08:14 07/07/16 08:14 07/07/16 08:14 07/07/16 08:14 07/07/16 08:00 Neck: Supple, no JVD, positive HJR, carotids were equal and upstrokes were normal, no thyromegaly appreciated. Heart: PMI was in the 5th intercostal space, no heaves or thrills, S1 is variable and S2 is normal. Grade II/ holosystolic murmur was heard along the left sternal border and apex, no diastolic murmur or gallops were heard. Lungs: Clear on auscultation bilaterally. Abdomen: Soft, nontender, no hepatosplenomegaly appreciated, and no palpable masses were felt. Extremities: No calf tenderness, 2+ dependent edema. CBC, BMP 07/07/16 05:35 07/07/16 05:35 Laboratory Results - last 24 hr 07/06/16 07/07/16 07/07/16 15:20 05:35 05:35 WBC 7.0 RBC 3.20 L Hgb 9.6 L Hct 29.1 L MCV 90.9 MCHC 32.9 RDW 18.0 H Plt Count 105 L MPV 8.4 Neutrophils % 80.1 Lymphocytes % 11.8 D Monocytes % 7.4 Eosinophils % 0.3 Basophils % 0.4 Sodium 142 Potassium 3.6 Chloride 99 Carbon Dioxide 34 H Anion Gap 9 BUN 21 H Creatinine 1.1 Creat Clearance w eGFR > 60 Random Glucose 116 H Calcium 8.9 Magnesium 2.2 Total Bilirubin 0.9 AST 10 L D ALT 16 Alkaline Phosphatase 94 Creatine Kinase 33 L 41 Troponin I 0.04 D 0.03 Total Protein 7.0 Albumin 3.5 Impression: (1) Congestive heart failure, NYHA class III Code(s): I50.23 - ACUTE ON CHRONIC SYSTOLIC (CONGESTIVE) HEART FAILURE (2) Mitral regurgitation Code(s): I34.0 - NONRHEUMATIC MITRAL (VALVE) INSUFFICIENCY Qualifiers: Cardiac valve disease etiology: nonrheumatic Qualified Code(s): I34.0 - Nonrheumatic mitral (valve) insufficiency (3) Atrial fibrillation with controlled ventricular response Code(s): I48.91 - UNSPECIFIED ATRIAL FIBRILLATION (3) Bundle branch block, left Code(s): I44.7 - LEFT BUNDLE-BRANCH BLOCK, UNSPECIFIED (4) Coronary artery disease Code(s): I25.10 - ATHSCL HEART DISEASE OF [place] CORONARY ARTERY W/O ANG PCTRS Qualifiers: Coronary Disease-Associated Artery/Lesion type: [place] artery [place] vs. transplanted heart: [place] heart Associated angina: without angina Qualified Code(s): I25.10 - Atherosclerotic heart disease of [place] coronary artery without angina pectoris (5) HTN (hypertension) Code(s): I10 - ESSENTIAL (PRIMARY) HYPERTENSION Qualifiers: Hypertension type: essential hypertension Qualified Code(s): I10 - Essential (primary) hypertension (6) Hypercholesterolemia Code(s): E78.0 - PURE HYPERCHOLESTEROLEMIA * DO NOT USE * (7) S/P CABG (coronary artery bypass graft) Code(s): Z95.1 - PRESENCE OF AORTOCORONARY BYPASS GRAFT (8) S/P mitral valve repair Code(s): Z98.89 - OTHER SPECIFIED POSTPROCEDURAL STATES * DO NOT USE * Recommendations: 1. Consider adding Aldactone 25 mg PO daily. 2. Close monitoring of electrolytes. 3. Daily weights. 4. Patient is scheduled for a consultation at [facility] for mitral valve clipping in july. 5. Consider adding low dose beta teresa once CHF is controlled both for rate control and LV dysfunction. Prognosis: Guarded Attestation: Documentation prepared by Jose Armando Mcdonald, acting as medical imaging technician for Atilio Mccoy MD.
--- NOTE | 2016-07-07 13:59 | PN ---
Physical Exam: SUBJECTIVE: Patient seen and examined. He states he is feeling better than yesterday. He is ambulating well and able to move about bed w/o distress. OBJECTIVE: Vital Signs Period Temp Pulse Resp BP Sys/Low Pulse Ox Last 24 Hr 97.6 F-98.1 F 58-109 18-22 99-123/51-85 90-97 PE Neuro: alert, awake, cn 2-12intact Pulm: CTAB +NC CV: s1 s2 irregular rhythm healed sternal scar Abd: s nt nd + bs Ext: + 3 pitting edema, warm Laboratory Results - last 24 hr 07/06/16 07/07/16 07/07/16 15:20 05:35 05:35 WBC 7.0 RBC 3.20 L Hgb 9.6 L Hct 29.1 L MCV 90.9 MCHC 32.9 RDW 18.0 H Plt Count 105 L MPV 8.4 Neutrophils % 80.1 Lymphocytes % 11.8 D Monocytes % 7.4 Eosinophils % 0.3 Basophils % 0.4 Sodium 142 Potassium 3.6 Chloride 99 Carbon Dioxide 34 H Anion Gap 9 BUN 21 H Creatinine 1.1 Creat Clearance w eGFR > 60 Random Glucose 116 H Calcium 8.9 Magnesium 2.2 Total Bilirubin 0.9 AST 10 L D ALT 16 Alkaline Phosphatase 94 Creatine Kinase 33 L 41 Troponin I 0.04 D 0.03 Total Protein 7.0 Albumin 3.5 Active Medications Generic Name Dose Route Start Last Admin Trade Name Freq PRN Reason Stop Dose Admin Apixaban 2.5 mg 07/06/16 22:00 07/07/16 09:15 Eliquis - PO 2.5 mg BID SANDIE Administration Atorvastatin Calcium 40 mg 07/06/16 22:00 07/06/16 21:48 Lipitor - PO 40 mg HS SANDIE Administration Docusate Sodium 100 mg 07/06/16 14:00 07/07/16 05:30 Colace - PO 100 mg TID SANDIE Administration Furosemide 40 mg 07/06/16 14:00 07/07/16 05:30 Lasix Injection - IVPUSH 40 mg BID@0600,1400 SANDIE Administration Diltiazem HCl 125 mg/ Dextrose 125 mls @ 5 mls/hr 07/06/16 08:30 07/07/16 08:59 IVPB Not Given TITR SANDIE Protocol 5 MG/HR Levetiracetam 500 mg 07/06/16 22:00 07/07/16 09:15 Keppra - PO 500 mg BID SANDIE Administration Metoprolol Succinate 25 mg 07/06/16 12:30 07/07/16 09:15 Toprol Xl - PO 25 mg BID SANDIE Administration Valsartan 40 mg 07/07/16 10:00 07/07/16 09:15 Diovan - PO 40 mg DAILY SANDIE Administration Assessment: 85 year old male with pmhx HTN, HLD, CKD, CAD s/p CABG (2011) and s /p mitral regurgitation s/p failed valve repair (2011; scheduled for consultation 07/17 at [facility]), LV diastolic dysfunction, severely reduced EF, A fib on Eliquis, and anemia, s/p recent admission for new-onset seizure activity started on keppra, admitted with A fib with RVR. Plan: 1. Acute on chronic systolic failure class - Serial trops negative r/o mi - Weight has increased - Continue Lasix 40mg IV BID - Continue Diovan 40mg daily - Daily weights, strict I/O - Echo noted 2. A Fib with RVR - Rate controlled, off cardizem gtt - Continue Toprol XL 25mg BID - Continue Eliquis 2.5mg BID 3. CAD s/p CABG and re CABG - see meds above 4. Pleural effusion - Unchanged - Recent throcentesis with negative cultures/cytology - Diuresis as above 5. HTN - Controlled - Diovan, Lopressor 6. Hypercholesterolemia - Atorvastatin 7. Mitral regurgitation - Has consultation for revision of valve repair scheduled in July 8. Seizures - Continue Keppra - Needs neurology followup to discuss whether needs to continue 9. Anemia - Will order iron studies 10. DVT ppx - Ambulation with PT - On Eliquis Visit type - Emergency Visit Emergency Visit: Yes ED Registration Date: 07/06/16 Care time: The patient presented to the Emergency Department on the above date and was hospitalized for further evaluation of their emergent condition. - New Patient This patient is new to me today: Yes Date on this admission: 07/07/16 - Critical Care Critical Care patient: No
[2016-07-07] MEDS: ATORVASTATIN CA 40 MG TABLET (FP) PO SCH (21:45)
[2016-07-08 02:42] LABS: BASOPHIL 0.3 % (0-2.0); EOSINOPHIL 0.6 % (0-4.5); MCH 29.9 pg (25.7-33.7); MCHC 32.7 g/dl (32.0-35.9); MEAN CELL VOLUME 91.4 fl (80-96); NEUTROPHILS 74.8 % (42.8-82.8); RDW 18.4 % (11.9-15.9); WHITE BLOOD COUNT 8.2 K/mm3 (4.0-10.0)
[2016-07-08 02:50] LABS: PLATELET COUNT 99 K/MM3 (134-434)
--- NOTE | 2016-07-08 02:57 | HOSP ---
Subjective - Review of Symptoms Events since last encounter: called to see patient for change in mental status. Nurse reports that when pt went to sleep was alert and oriented without confusion. Pt woke up approx 1- 1.5h ago with confusion, agitation, climbing out of bed. Pt does not know where he is and states his name is pam or jewel or something that sounds like that. I was unable to understand the name. Pt did ask for his and states her name is chanell. (her name is really Jeri according to the demographics.) When asked what his last name is, he states "i don't know". Nurse stated VS were stable. Pt requesting to go back to bed, put back in bed and became more alert but still remains confused. Wants to go to the bathrrom, given urinal 2x, initially unable to go but on second attempt after much hesitation produced 100cc of urine. Pt stated he was hungry and thirsty and given water and crackers. stated he is fine now, "you can go". Physical Examination Vital Signs: Vital Signs Temperature 97.6 F 07/08/16 01:43 Pulse Rate 86 07/08/16 01:43 Respiratory Rate 19 07/08/16 01:43 Blood Pressure 99/67 07/08/16 01:43 O2 Sat by Pulse Oximetry (%) 96 07/08/16 01:39 Constitutional: Yes: Mild Distress Cardiovascular: Yes: S1, S2, Other (irregular) Respiratory: Yes: CTA Bilaterally (mild resp distress noted) Gastrointestinal: Yes: WNL Edema: Yes Edema: LLE: 2+, RLE: 2+ Labs: CBC, BMP 07/08/16 02:30 ECG done, reviewed, afib, LBBB, rate 75, QTC 511, unchanged from previous. Hospitalist Encounter Assessment: Acute change in mental status - stat labs, ECG, CT head ordered - pulse ox 81% room air, up to 94% 3LNC. ? hypoxia related - ? etiology, ? seizure given improvement in mental status in short period of time without intervention. urinary hesitancy - bladder scan done, approx 100cc in bladder, no further intervention at this time 330am: when pt returned from CT head, able to state last name, and where he is, "hospital"
[2016-07-08 03:13] LABS: ALBUMIN 3.1 g/dl (3.4-5.0); BILIRUBIN,TOTAL 0.8 mg/dL (0.2-1.0); CALCIUM 8.2 mg/dL (8.5-10.1); CREATININE 1.3 mg/dL (0.7-1.3); MAGNESIUM 2.1 mg/dL (1.8-2.4); PHOSPHOROUS 2.8 mg/dL (2.5-4.9); TOT PROT 6.5 g/dl (6.4-8.2)
[2016-07-08 03:30] LABS: TROPONIN I 0.03 ng/ml (0.00-0.05)
[2016-07-08] MEDS: FUROSEMIDE 40 MG/4 ML INJECTABLE VIAL IVPUSH SCH ×2 (06:13→13:51)
[2016-07-08] MEDS: DOCUSATE SODIUM 100 MG CAPSULE (FP) PO SCH ×4 (06:13→23:03)
[2016-07-08 09:14] LABS: CALCIUM 8.7 mg/dL (8.5-10.1); CREATININE 1.3 mg/dL (0.7-1.3)
[2016-07-08 09:16] LABS: FERRITIN 99.477 ng/ml (16.4-293.9)
[2016-07-08] MEDS: APIXABAN 2.5 MG TABLET PO SCH ×2 (09:32→23:03)
[2016-07-08] MEDS: levETIRAcetam 500 MG TABLET (FP) PO SCH (09:32)
[2016-07-08] MEDS: METOPROLOL SUCCINATE 25 MG TAB.SR.24H (FP) PO SCH (09:33)
[2016-07-08] MEDS: VALSARTAN 40 MG TABLET (FP) PO SCH (09:33)
[2016-07-08] MEDS: DILTIAZEM INJECTION 125 MG in DEXTROSE 5%-WATER - 100 ML IVPB SCH (09:34)
[2016-07-08] MEDS ORDERED: levETIRAcetam 500 MG TABLET (FP) PO SCH (13:51)
--- NOTE | 2016-07-08 14:02 | PN ---
Physical Exam: SUBJECTIVE: Patient seen and examined. He stable oob to chair. He is worried about his MV clipping consultation next month. Denies CP, SOB. d/w case . OBJECTIVE: Vital Signs Period Temp Pulse Resp BP Sys/Low Pulse Ox Last 24 Hr 97.5 F-98 F 76-92 18-20 93-110/48-67 93-96 PE Neuro: alert, awake, cn 2-12intact, aware he is in a hospital in [place]. Pulm: CTAB +NC CV: s1 s2 irregular rhythm healed sternal scar Abd: s nt nd + bs Ext: + 2 pitting edema b/l and pedal , warm Laboratory Results - last 24 hr 07/08/16 07/08/16 07/08/16 01:26 02:30 02:30 WBC 8.2 RBC 3.00 L Hgb 9.0 L Hct 27.4 L MCV 91.4 MCHC 32.7 RDW 18.4 H Plt Count 99 L MPV 8.0 Neutrophils % 74.8 Lymphocytes % 16.0 D Monocytes % 8.3 Eosinophils % 0.6 D Basophils % 0.3 Sodium 141 Potassium 3.9 Chloride 98 Carbon Dioxide 34 H Anion Gap 9 BUN 24 H Creatinine 1.3 Creat Clearance w eGFR 52.34 POC Glucometer 132 Random Glucose 120 H Calcium 8.2 L Phosphorus 2.8 Magnesium 2.1 Ferritin Total Bilirubin 0.8 AST 9 L ALT 15 Alkaline Phosphatase 87 Creatine Kinase Troponin I Total Protein 6.5 Albumin 3.1 L 07/08/16 07/08/16 02:30 06:00 WBC RBC Hgb Hct MCV MCHC RDW Plt Count MPV Neutrophils % Lymphocytes % Monocytes % Eosinophils % Basophils % Sodium 142 Potassium 3.6 Chloride 97 L Carbon Dioxide 39 H Anion Gap 6 L BUN 24 H Creatinine 1.3 Creat Clearance w eGFR POC Glucometer Random Glucose 118 H Calcium 8.7 Phosphorus Magnesium Ferritin 99.477 Total Bilirubin AST ALT Alkaline Phosphatase Creatine Kinase 41 Troponin I 0.03 Total Protein Albumin Active Medications Generic Name Dose Route Start Last Admin Trade Name Freq PRN Reason Stop Dose Admin Albuterol Sulfate 1 amp 07/08/16 14:00 Ventolin 0.083% Nebulizer Soln - NEB 07/09/16 13:59 Q6H SANDIE Apixaban 2.5 mg 07/06/16 22:00 07/08/16 09:32 Eliquis - PO 2.5 mg BID SANDIE Administration Atorvastatin Calcium 40 mg 07/06/16 22:00 07/07/16 21:45 Lipitor - PO 40 mg HS SANDIE Administration Docusate Sodium 100 mg 07/06/16 14:00 07/08/16 13:56 Colace - PO Not Given TID SANDIE Furosemide 40 mg 07/06/16 14:00 07/08/16 13:51 Lasix Injection - IVPUSH 40 mg BID@0600,1400 SANDIE Administration Diltiazem HCl 125 mg/ Dextrose 125 mls @ 5 mls/hr 07/06/16 08:30 07/08/16 09:34 IVPB Not Given TITR SANDIE Protocol 5 MG/HR Levetiracetam 750 mg 07/08/16 13:51 Keppra - PO BID SANDIE Metoprolol Succinate 25 mg 07/06/16 12:30 07/08/16 09:33 Toprol Xl - PO 25 mg BID SANDIE Administration Valsartan 40 mg 07/07/16 10:00 07/08/16 09:33 Diovan - PO 40 mg DAILY SANDIE Administration Assessment: 85 year old male with pmhx HTN, HLD, CKD, CAD s/p CABG (2011) and s /p mitral regurgitation s/p failed valve repair (2011; scheduled for consultation 07/17 at [facility]), LV diastolic dysfunction, severely reduced EF, A fib on Eliquis, and anemia, s/p recent admission for new-onset seizure activity started on keppra, admitted with A fib with RVR. Plan: 1. Acute on chronic systolic failure class - Serial trops negative r/o mi - Continue Lasix 40mg IV BID - Continue Diovan 40mg daily - Weight not done due to hypotension, RN to take later this afternoon - Echo noted, severely reduced EF <40% 2. A Fib with RVR - Rate controlled, off cardizem gtt - Decrease Toprol xl to 25mg daily - Continue Eliquis 2.5mg BID 3. AMS; resolved - CT head negative for acute pathology - Possible seizure - Will increase keppra 750mg BID 4. Hypotension - Pt is asymptomatic - Keep in pt, monitor BP q2 - Decrease BB as above 5. CAD s/p CABG and re CABG - see meds above 6. Pleural effusion - Unchanged - Recent throcentesis with negative cultures/cytology - Diuresis as above 7. Hypercholesterolemia - Atorvastatin 8. Mitral regurgitation - Has consultation for revision of valve repair scheduled in July 20. Seizures - Keppra now 750 BID - D/w to have neuro follow up once done with MV consultation 10. Anemia - Iron studies pending 11. DVT ppx - Ambulation with PT - On Eliquis Visit type - Emergency Visit Emergency Visit: Yes ED Registration Date: 07/06/16 Care time: The patient presented to the Emergency Department on the above date and was hospitalized for further evaluation of their emergent condition. - New Patient This patient is new to me today: No - Critical Care Critical Care patient: No
[2016-07-08] MEDS ORDERED: LEVETIRACETAM 250 MG, LEVETIRACETAM 500 MG PO SCH (14:30)
[2016-07-08] MEDS: ALBUTEROL SO4 0.083% IH SOL 2.5 MG/3 ML VIAL.NEB. NEB SCH ×2 (17:57→23:11)
--- NOTE | 2016-07-08 19:35 | PN ---
Progress Note, Physician History of Present Illness: Shortness of breath, lower extremity edema, chest tightness, orthopnea and palpitations improving with diuresis and rate-control. Borderline hypotension. PMD: Dr. Soriano Radiology Physician Assistant: Americo Haley - Current Medication List Current Medications: Active Medications Albuterol Sulfate (Ventolin 0.083% Nebulizer Soln -) 1 amp NEB QIDR [facility] Last Admin: 07/08/16 17:57 Dose: 1 amp Apixaban (Eliquis -) 2.5 mg PO BID [facility] Last Admin: 07/08/16 09:32 Dose: 2.5 mg Atorvastatin Calcium (Lipitor -) 40 mg PO HS [facility] Last Admin: 07/07/16 21:45 Dose: 40 mg Docusate Sodium (Colace -) 100 mg PO TID [facility] Last Admin: 07/08/16 13:56 Dose: Not Given Furosemide (Lasix Injection -) 40 mg IVPUSH BID@0600,1400 [facility] Last Admin: 07/08/16 13:51 Dose: 40 mg Diltiazem HCl 125 mg/ Dextrose 125 mls @ 5 mls/hr IVPB TITR SANDIE; 5 MG/HR PRN Reason: Protocol Last Admin: 07/08/16 09:34 Dose: Not Given Levetiracetam 250 mg/ (Levetiracetam 500 mg) 750 mg PO BID [facility] Metoprolol Succinate (Toprol Xl -) 25 mg PO DAILY [facility] Valsartan (Diovan -) 40 mg PO DAILY [facility] Last Admin: 07/08/16 09:33 Dose: 40 mg - Objective Vital Signs: Vital Signs Temperature 98.1 F 07/08/16 18:00 Pulse Rate 74 07/08/16 18:00 Respiratory Rate 20 07/08/16 18:00 Blood Pressure 117/51 07/08/16 18:00 O2 Sat by Pulse Oximetry (%) 93 L 07/08/16 09:00 Constitutional: Yes: No Distress, Calm Neck: Yes: Supple Cardiovascular: Yes: Pulse Irregular, Murmur (2/6 SM) Respiratory: Yes: Regular, Diminished Gastrointestinal: Yes: Normal Bowel Sounds, Soft Edema: Yes Edema: LLE: 1+, RLE: 1+ Labs: CBC, BMP 07/08/16 02:30 07/08/16 06:00 INR, PTT INR 1.36 (0.82-1.09) H 07/06/16 08:30 - ....Imaging EKG: Report Reviewed (Tele: Rate-controlled afib, PVC) Problem List - Problems (1) Atrial fibrillation with rapid ventricular response Code(s): I48.91 - UNSPECIFIED ATRIAL FIBRILLATION (3) Bundle branch block, left Code(s): I44.7 - LEFT BUNDLE-BRANCH BLOCK, UNSPECIFIED (4) Coronary artery disease Code(s): I25.10 - ATHSCL HEART DISEASE OF [place] CORONARY ARTERY W/O ANG PCTRS Qualifiers: Coronary Disease-Associated Artery/Lesion type: [place] artery [place] vs. transplanted heart: [place] heart Associated angina: without angina Qualified Code(s): I25.10 - Atherosclerotic heart disease of [place] coronary artery without angina pectoris (5) HTN (hypertension) Code(s): I10 - ESSENTIAL (PRIMARY) HYPERTENSION Qualifiers: Hypertension type: essential hypertension Qualified Code(s): I10 - Essential (primary) hypertension (6) Hypercholesterolemia Code(s): E78.0 - PURE HYPERCHOLESTEROLEMIA * DO NOT USE * (7) Mitral regurgitation Code(s): I34.0 - NONRHEUMATIC MITRAL (VALVE) INSUFFICIENCY Qualifiers: Cardiac valve disease etiology: nonrheumatic Qualified Code(s): I34.0 - Nonrheumatic mitral (valve) insufficiency (8) Acute on chronic systolic heart failure, NYHA class 3 Code(s): I50.23 - ACUTE ON CHRONIC SYSTOLIC (CONGESTIVE) HEART FAILURE (9) S/P CABG (coronary artery bypass graft) Code(s): Z95.1 - PRESENCE OF AORTOCORONARY BYPASS GRAFT (10) S/P mitral valve repair Code(s): Z98.89 - OTHER SPECIFIED POSTPROCEDURAL STATES * DO NOT USE * Assessment/Plan Echo performed on 06/09/16 Impression: The left ventricle is moderately dilated. Left ventricular systolic function is severely reduced. There is severe global hypokinesis of the left ventricle. The left atrium is mildly dilated. There is moderate mitral annular calcification. The mitral valve chordae are thickened and/or calcified. There is moderate to severe mitral regurgitation. The mitral regurgitant jet is eccentrically directed. There is moderate tricuspid regurgitation. Right ventricular systolic pressure is elevated at 30-40 mmHg. There is mild aortic sclerosis. Mild aortic regurgitation. Mild pulmonic valvular regurgitation. There is no pericardial effusion. Read by: Dr. Anatoliy Blackburn MD 06/02/2016 at 04:26 PM 1. Acute on chronic systolic failure class III NYHA classification improving 2. 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 Persistent atrial fibrillation with improved rate-control [id number] score of 5 on NOAC 5. HTN/HCVD 6. Hypercholesterolemia 7. CKD 8. Anemia and thrombocytopenia 9. Neuro-cardiogenic syncope (vasodepressor vs. cardioinhibitory) vs. sustained arrhythmia (ventricular) vs seizure d/o PLAN: 1. Decrease Lasix 40 IV qd with monitor diuretic response, renal fxn and electolytes 2. Continue Toprol XL 25 qd and Diovan 40 qd hemodynamics permitting 3. Continue Lipitor 40 qhs 4. Continue Eliquis 2.5 bid 5. Has consultation for Mitraclip eval scheduled in July once euvolemic
--- NOTE | 2016-07-08 21:04 | EKG ---
Test Reason : Blood Pressure : / mmHG Vent. Rate : 075 BPM Atrial Rate : 088 BPM P-R Int : 000 ms QRS Dur : 172 ms QT Int : 458 ms P-R-T Axes : 000 056 161 degrees QTc Int : 511 ms ATRIAL FIBRILLATION WITH PREMATURE VENTRICULAR OR ABERRANTLY CONDUCTED COMPLEXES LEFT BUNDLE BRANCH BLOCK ABNORMAL ECG WHEN COMPARED WITH ECG OF 06-JUL-2016 08:47, NO SIGNIFICANT CHANGE WAS FOUND Confirmed by YAHIR APONTE MD ([id number]) on 07/08/2016 9:03:40 PM Referred By: Confirmed By:YAHIR APONTE MD
[2016-07-08] MEDS: ATORVASTATIN CA 40 MG TABLET (FP) PO SCH (23:03)
[2016-07-08] MEDS: LEVETIRACETAM 250 MG, LEVETIRACETAM 500 MG PO SCH (23:03)
[2016-07-08] MEDS ORDERED: ONDANSETRON 4 MG/2 ML VIAL IVPB ONE (23:06)
[2016-07-09] MEDS: ALBUTEROL SO4 0.083% IH SOL 2.5 MG/3 ML VIAL.NEB. NEB SCH ×4 (06:32→23:14)
[2016-07-09 06:36] LABS: SERUM IRON 43 ug/dL (38-169); TOTAL IRON BINDING CAPACITY 257 ug/dL (250-450); UIBC 214 ug/dL (111-343)
[2016-07-09] MEDS: DOCUSATE SODIUM 100 MG CAPSULE (FP) PO SCH ×3 (06:51→21:22)
[2016-07-09 08:11] LABS: TRANSFERRIN 245 mg/dL (200-370)
--- NOTE | 2016-07-09 09:39 | PN ---
Physical Exam: SUBJECTIVE: Patient seen and examined. He denies sob, cp, abd pain, he keeps asking to go home. OBJECTIVE: Vital Signs Period Temp Pulse Resp BP Sys/Low Pulse Ox Last 24 Hr 97.1 F-98.2 F 74-98 18-22 75-117/37-81 98 PE Neuro: alert, awake, cn 2-12intact Pulm: clear anteriorly +NC CV: s1 s2 irregular rhythm healed sternal scar +2/6 systolic murmur Abd: s nt nd + bs Ext: + 2 pitting edema b/l and pedal edema, warm Laboratory Results - last 24 hr 07/08/16 06:00 Iron 43 TIBC 257 Iron Saturation 17 Transferrin 245 Active Medications Generic Name Dose Route Start Last Admin Trade Name Mickyq PRN Reason Stop Dose Admin Albuterol Sulfate 1 amp 07/08/16 14:00 07/09/16 06:32 Ventolin 0.083% Nebulizer Soln - NEB 1 amp QIDR SANDIE Administration Apixaban 2.5 mg 07/06/16 22:00 07/08/16 23:03 Eliquis - PO Not Given BID SANDIE Atorvastatin Calcium 40 mg 07/06/16 22:00 07/08/16 23:03 Lipitor - PO Not Given HS SANDIE Docusate Sodium 100 mg 07/06/16 14:00 07/09/16 06:51 Colace - PO Not Given TID SANDIE Furosemide 40 mg 07/09/16 10:00 Lasix Injection - IVPUSH DAILY SANDIE Levetiracetam 250 mg/ 750 mg 07/08/16 22:00 07/08/16 23:03 Levetiracetam 500 mg PO Not Given BID SANDIE Metoprolol Succinate 25 mg 07/09/16 10:00 Toprol Xl - PO DAILY SANDIE Valsartan 40 mg 07/07/16 10:00 07/08/16 09:33 Diovan - PO 40 mg DAILY SANDIE Administration Assessment: 85 year old male with pmhx HTN, HLD, CKD, CAD s/p CABG (2011) and s /p mitral regurgitation s/p failed valve repair (2011; scheduled for consultation 07/17 at [facility]), LV diastolic dysfunction, severely reduced EF, A fib on Eliquis, and anemia, s/p recent admission for new-onset seizure activity started on keppra, admitted with A fib with RVR. Plan: 1. Acute on chronic systolic failure class - Weight decreased ~2lbs - Decrease Lasix 40mg IV daily for hypotension - Continue Diovan 40mg daily - Echo noted, severely reduced EF <40% - Cardiology seeing 2. A Fib with RVR - Toprol xl to 25mg daily - Continue Eliquis 2.5mg BID 3. Hypotension - Resolved today 4. Seizures - No acute mental changes overnight - Maintain increased Keppra 750mg BID - D/w to have neuro follow up once done with MV consultation 5. CAD s/p CABG and re CABG - See meds above 6. Pleural effusion - Unchanged - Recent throcentesis with negative cultures/cytology - Diuresis as above 7. Hypercholesterolemia - Atorvastatin 8. Mitral regurgitation - Has consultation for revision of valve repair scheduled in July 20. Anemia - Iron studies wnl 10. AMS; resolved 11. DVT ppx - Ambulation with PT - On Eliquis Visit type - Emergency Visit Emergency Visit: Yes ED Registration Date: 07/06/16 Care time: The patient presented to the Emergency Department on the above date and was hospitalized for further evaluation of their emergent condition. - New Patient This patient is new to me today: No - Critical Care Critical Care patient: No
--- NOTE | 2016-07-09 10:10 | PN ---
Progress Note, Physician History of Present Illness: Shortness of breath, lower extremity edema, chest tightness, orthopnea and palpitations resolving with diuresis and rate-control. BP improved. PMD: Dr. Soriano Digital Business Analyst: Americo Haley - Current Medication List Current Medications: Active Medications Albuterol Sulfate (Ventolin 0.083% Nebulizer Soln -) 1 amp NEB QIDR [facility] Last Admin: 07/09/16 06:32 Dose: 1 amp Apixaban (Eliquis -) 2.5 mg PO BID [facility] Last Admin: 07/08/16 23:03 Dose: Not Given Atorvastatin Calcium (Lipitor -) 40 mg PO HS [facility] Last Admin: 07/08/16 23:03 Dose: Not Given Docusate Sodium (Colace -) 100 mg PO TID [facility] Last Admin: 07/09/16 06:51 Dose: Not Given Furosemide (Lasix Injection -) 40 mg IVPUSH DAILY [facility] Levetiracetam 250 mg/ (Levetiracetam 500 mg) 750 mg PO BID [facility] Last Admin: 07/08/16 23:03 Dose: Not Given Metoprolol Succinate (Toprol Xl -) 25 mg PO DAILY [facility] Valsartan (Diovan -) 40 mg PO DAILY [facility] Last Admin: 07/08/16 09:33 Dose: 40 mg - Objective Vital Signs: Vital Signs Temperature 98.2 F 07/09/16 01:59 Pulse Rate 82 07/09/16 06:00 Respiratory Rate 18 07/09/16 06:00 Blood Pressure 112/74 07/09/16 06:00 O2 Sat by Pulse Oximetry (%) 98 07/08/16 21:00 Constitutional: Yes: No Distress, Calm Neck: Yes: Supple Cardiovascular: Yes: Pulse Irregular, Murmur (2/6 SM) Respiratory: Yes: Regular, Diminished Gastrointestinal: Yes: Normal Bowel Sounds, Soft Edema: Yes Edema: LLE: 1+, RLE: 1+ Labs: CBC, BMP 07/08/16 02:30 07/08/16 06:00 INR, PTT INR 1.36 (0.82-1.09) H 07/06/16 08:30 Problem List - Problems (1) Atrial fibrillation with rapid ventricular response Code(s): I48.91 - UNSPECIFIED ATRIAL FIBRILLATION (3) Bundle branch block, left Code(s): I44.7 - LEFT BUNDLE-BRANCH BLOCK, UNSPECIFIED (4) Coronary artery disease Code(s): I25.10 - ATHSCL HEART DISEASE OF [place] CORONARY ARTERY W/O ANG PCTRS Qualifiers: Coronary Disease-Associated Artery/Lesion type: [place] artery [place] vs. transplanted heart: [place] heart Associated angina: without angina Qualified Code(s): I25.10 - Atherosclerotic heart disease of [place] coronary artery without angina pectoris (5) HTN (hypertension) Code(s): I10 - ESSENTIAL (PRIMARY) HYPERTENSION Qualifiers: Hypertension type: essential hypertension Qualified Code(s): I10 - Essential (primary) hypertension (6) Hypercholesterolemia Code(s): E78.0 - PURE HYPERCHOLESTEROLEMIA * DO NOT USE * (7) Mitral regurgitation Code(s): I34.0 - NONRHEUMATIC MITRAL (VALVE) INSUFFICIENCY Qualifiers: Cardiac valve disease etiology: nonrheumatic Qualified Code(s): I34.0 - Nonrheumatic mitral (valve) insufficiency (8) Acute on chronic systolic heart failure, NYHA class 3 Code(s): I50.23 - ACUTE ON CHRONIC SYSTOLIC (CONGESTIVE) HEART FAILURE (9) S/P CABG (coronary artery bypass graft) Code(s): Z95.1 - PRESENCE OF AORTOCORONARY BYPASS GRAFT (10) S/P mitral valve repair Code(s): Z98.89 - OTHER SPECIFIED POSTPROCEDURAL STATES * DO NOT USE * Assessment/Plan Echo performed on 06/09/16 Impression: The left ventricle is moderately dilated. Left ventricular systolic function is severely reduced. There is severe global hypokinesis of the left ventricle. The left atrium is mildly dilated. There is moderate mitral annular calcification. The mitral valve chordae are thickened and/or calcified. There is moderate to severe mitral regurgitation. The mitral regurgitant jet is eccentrically directed. There is moderate tricuspid regurgitation. Right ventricular systolic pressure is elevated at 30-40 mmHg. There is mild aortic sclerosis. Mild aortic regurgitation. Mild pulmonic valvular regurgitation. There is no pericardial effusion. Read by: Dr. Anatoliy Blackburn MD 06/02/2016 at 04:26 PM 1. Acute on chronic systolic failure class III NYHA classification improving 2. 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 Persistent atrial fibrillation with improved rate-control [id number] score of 5 on NOAC 5. HTN/HCVD 6. Hypercholesterolemia 7. CKD 8. Anemia and thrombocytopenia 9. Neuro-cardiogenic syncope (vasodepressor vs. cardioinhibitory) vs. sustained arrhythmia (ventricular) vs seizure d/o PLAN: 1. Decrease Lasix 20 po qd and Aldactone 25 qd in AM with monitor diuretic response, renal fxn and electrolytes 2. Continue Toprol XL 25 qd and increase Diovan 80 qd hemodynamics permitting 3. Continue Lipitor 40 qhs 4. Continue Eliquis 2.5 bid 5. Has consultation for Mitraclip eval scheduled in July once euvolemic
[2016-07-09] MEDS ORDERED: VALSARTAN 80 MG TABLET (UD) PO SCH (10:16)
[2016-07-09] MEDS ORDERED: levETIRAcetam 500 MG TABLET (FP) PO ONE ×2 (10:23→21:20)
[2016-07-09] MEDS ORDERED: levETIRAcetam 250 MG TABLET (FP) PO ONE ×2 (10:23→21:20)
[2016-07-09] MEDS: APIXABAN 2.5 MG TABLET PO SCH ×2 (10:29→21:22)
[2016-07-09] MEDS: LEVETIRACETAM 250 MG, LEVETIRACETAM 500 MG PO SCH ×2 (10:29→21:22)
[2016-07-09] MEDS: FUROSEMIDE 40 MG/4 ML INJECTABLE VIAL IVPUSH SCH ×2 (10:29→18:45)
[2016-07-09] MEDS: METOPROLOL SUCCINATE 25 MG TAB.SR.24H (FP) PO SCH (10:30)
[2016-07-09] MEDS ORDERED: FUROSEMIDE 40 MG/4 ML INJECTABLE VIAL IVPB ONE (18:45)
[2016-07-09] MEDS: ATORVASTATIN CA 40 MG TABLET (FP) PO SCH (21:22)
[2016-07-10] MEDS: DOCUSATE SODIUM 100 MG CAPSULE (FP) PO SCH ×2 (06:01→13:14)
[2016-07-10] MEDS: ALBUTEROL SO4 0.083% IH SOL 2.5 MG/3 ML VIAL.NEB. NEB SCH ×2 (06:35→11:57)
[2016-07-10 07:39] LABS: BASOPHIL 0.3 % (0-2.0); EOSINOPHIL 0.7 % (0-4.5); MCH 30.1 pg (25.7-33.7); MCHC 32.4 g/dl (32.0-35.9); MEAN CELL VOLUME 92.9 fl (80-96); MEAN PLT VOLUME 8.8 fl (7.5-11.1); NEUTROPHILS 73.5 % (42.8-82.8); PLATELET COUNT 87 K/MM3 (134-434); RDW 18.4 % (11.9-15.9); WHITE BLOOD COUNT 7.3 K/mm3 (4.0-10.0)
[2016-07-10 07:46] LABS: ALBUMIN 3.1 g/dl (3.4-5.0); CALCIUM 7.9 mg/dL (8.5-10.1)
[2016-07-10 07:50] LABS: BILIRUBIN,TOTAL 0.5 mg/dL (0.2-1.0); CREATININE 1.4 mg/dL (0.7-1.3); TOT PROT 6.2 g/dl (6.4-8.2)
[2016-07-10] MEDS ORDERED: levETIRAcetam 500 MG TABLET (FP) PO ONE (08:37)
[2016-07-10] MEDS ORDERED: levETIRAcetam 250 MG TABLET (FP) PO ONE (08:37)
[2016-07-10] MEDS: LEVETIRACETAM 250 MG, LEVETIRACETAM 500 MG PO SCH (09:08)
[2016-07-10] MEDS: APIXABAN 2.5 MG TABLET PO SCH (09:08)
[2016-07-10] MEDS: METOPROLOL SUCCINATE 25 MG TAB.SR.24H (FP) PO SCH (09:09)
[2016-07-10] MEDS ORDERED: SPIRONOLACTONE 25 MG TABLET (FP) PO SCH (10:00)
[2016-07-10] MEDS ORDERED: FUROSEMIDE 20 MG TABLET (FP) PO SCH (10:00)
--- NOTE | 2016-07-10 12:35 | PN ---
Progress Note, Physician Chief Complaint: Not in distress History of Present Illness: Patient was seen and examined. Awake and alert. Chart was reviewed Denies chest pain or shortness of breath - Current Medication List Current Medications: Active Medications Albuterol Sulfate (Ventolin 0.083% Nebulizer Soln -) 1 amp NEB QIDR [facility] Last Admin: 07/10/16 11:57 Dose: 1 amp Apixaban (Eliquis -) 2.5 mg PO BID [facility] Last Admin: 07/10/16 09:08 Dose: 2.5 mg Atorvastatin Calcium (Lipitor -) 40 mg PO HS [facility] Last Admin: 07/09/16 21:22 Dose: 40 mg Docusate Sodium (Colace -) 100 mg PO TID [facility] Last Admin: 07/10/16 06:01 Dose: Not Given Furosemide (Lasix -) 20 mg PO DAILY [facility] Last Admin: 07/10/16 09:09 Dose: 20 mg Levetiracetam 250 mg/ (Levetiracetam 500 mg) 750 mg PO BID [facility] Last Admin: 07/10/16 09:08 Dose: 750 mg Metoprolol Succinate (Toprol Xl -) 25 mg PO DAILY [facility] Last Admin: 07/10/16 09:09 Dose: 25 mg Spironolactone (Aldactone -) 25 mg PO DAILY [facility] Last Admin: 07/10/16 09:10 Dose: 25 mg Valsartan (Diovan -) 80 mg PO DAILY [facility] Last Admin: 07/10/16 09:11 Dose: 80 mg - Objective Vital Signs: Vital Signs Temperature 98 F 07/10/16 10:00 Pulse Rate 84 07/10/16 11:56 Respiratory Rate 18 07/10/16 10:00 Blood Pressure 110/60 07/10/16 10:00 O2 Sat by Pulse Oximetry (%) 99 07/10/16 11:56 Cardiovascular: Yes: Pulse Irregular, Murmur (2/6 SM), S1, S2 Respiratory: Yes: Diminished Gastrointestinal: Yes: Normal Bowel Sounds, Soft. No: Tenderness Edema: Yes Additional Findings/Remarks: - Review of Systems Constitutional: denies: Chills, Fever Cardiovascular: As noted above Respiratory: denies: Cough or Sputum Production Gastrointestinal: denies: Nausea, Vomiting, Diarrhea, Constipation or Abdominal Pain Neurological: As noted above Labs: CBC, BMP 07/10/16 05:35 02/27/17 05:35 INR, PTT INR 1.36 (0.82-1.09) H 07/06/16 08:30 Problem List - Problems (1) Acute on chronic systolic heart failure, NYHA class 3 Code(s): I50.23 - ACUTE ON CHRONIC SYSTOLIC (CONGESTIVE) HEART FAILURE (2) CHF (congestive heart failure) Code(s): I50.9 - HEART FAILURE, UNSPECIFIED (4) S/P CABG (coronary artery bypass graft) Code(s): Z95.1 - PRESENCE OF AORTOCORONARY BYPASS GRAFT (5) S/P mitral valve repair Code(s): Z98.89 - OTHER SPECIFIED POSTPROCEDURAL STATES * DO NOT USE * (6) Atrial fibrillation Qualifiers: Atrial fibrillation type: persistent Qualified Code(s): I48.1 - Persistent atrial fibrillation (7) Coronary artery disease Code(s): I25.10 - ATHSCL HEART DISEASE OF [place] CORONARY ARTERY W/O ANG PCTRS Qualifiers: Coronary Disease-Associated Artery/Lesion type: [place] artery [place] vs. transplanted heart: [place] heart Associated angina: without angina Qualified Code(s): I25.10 - Atherosclerotic heart disease of [place] coronary artery without angina pectoris (8) Diastolic dysfunction with acute on chronic heart failure Code(s): I50.33 - ACUTE ON CHRONIC DIASTOLIC (CONGESTIVE) HEART FAILURE (9) HTN (hypertension) Code(s): I10 - ESSENTIAL (PRIMARY) HYPERTENSION Qualifiers: Hypertension type: essential hypertension Qualified Code(s): I10 - Essential (primary) hypertension (10) Hypercholesterolemia Code(s): E78.0 - PURE HYPERCHOLESTEROLEMIA * DO NOT USE * (11) Mitral regurgitation Code(s): I34.0 - NONRHEUMATIC MITRAL (VALVE) INSUFFICIENCY Qualifiers: Cardiac valve disease etiology: nonrheumatic Qualified Code(s): I34.0 - Nonrheumatic mitral (valve) insufficiency (12) Tricuspid regurgitation Code(s): I07.1 - RHEUMATIC TRICUSPID INSUFFICIENCY Qualifiers: Cardiac valve disease etiology: nonrheumatic Qualified Code(s): I36.1 - Nonrheumatic tricuspid (valve) insufficiency Assessment/Plan 1. Acute on chronic systolic failure class III NYHA classification improving 2. 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 Persistent atrial fibrillation with improved rate-control [id number] score of 5 on NOAC 5. HTN/HCVD 6. Hypercholesterolemia 7. CKD 8. Anemia and thrombocytopenia 9. Neuro-cardiogenic syncope (vasodepressor vs. cardioinhibitory) vs. sustained arrhythmia (ventricular) vs seizure disorder PLAN: 1. Lasix with monitoringrenal fxn and electolytes 2. Continue Toprol XL and Diovan as hemodynamics permit 3. Continue Lipitor 4. Continue Eliquis 5. Keep appointment at [facility] for Mitraclip eval (scheduled end of this week) Discharge planning Anatoliy Blackburn MD
--- NOTE | 2016-07-10 13:33 | DS ---
Physical Exam: SUBJECTIVE: Patient seen and examined. He feels well, he is ready to go home. He will continue to require home o2. OBJECTIVE: Vital Signs Period Temp Pulse Resp BP Sys/Low Pulse Ox Last 24 Hr 97.4 F-98.3 F 77-110 18-20 79-110/48-63 93-99 PE Neuro: alert, awake, cn 2-12intact Pulm: L base crackles, + wet cough CV: s1 s2 irregular rhythm healed sternal scar +2/6 systolic murmur Abd: s nt nd + bs Ext: + 2 pitting edema b/l and pedal edema, warm Laboratory Results - last 24 hr 07/10/16 07/10/16 05:35 05:35 WBC 7.3 RBC 3.12 L Hgb 9.4 L Hct 29.0 L MCV 92.9 MCHC 32.4 RDW 18.4 H Plt Count 87 L MPV 8.8 Neutrophils % 73.5 Lymphocytes % 16.8 Monocytes % 8.7 Eosinophils % 0.7 Basophils % 0.3 Sodium 142 Potassium 3.7 Chloride 98 Carbon Dioxide 34 H Anion Gap 10 BUN 36 H D Creatinine 1.4 H Creat Clearance w eGFR 48.05 Random Glucose 110 H Calcium 7.9 L Total Bilirubin 0.5 D AST 9 L ALT 17 Alkaline Phosphatase 84 Total Protein 6.2 L Albumin 3.1 L HOSPITAL COURSE: Date of Admission:07/06/16 Date of Discharge: 07/10/16 Minutes to complete discharge: 35 Discharge Summary Reason For Visit: CHF / A-FIB Current Active Problems Acute on chronic systolic heart failure, NYHA class 3 (Acute) Atrial fibrillation by electrocardiogram (Acute) Atrial fibrillation with rapid ventricular response (Acute) CHF (congestive heart failure) (Acute) DVT prophylaxis (Acute) S/P CABG (coronary artery bypass graft) (Acute) S/P mitral valve repair (Acute) Hospital Course: Initial Hospital Course: Briefly, this 85 year old male with pmhx HTN, HLD, CKD, CAD s/p CABG (2011) and s/p mitral regurgitation s/p failed valve repair (2011; scheduled for consultation 07/17 at [facility]), LV diastolic dysfunction, severely reduced EF, persistent atrial fibrillation on Eliquis, and anemia, s/p recent admission for new-onset seizure activity, thought to be a syncopal episode, neurocardiogenic vs. vasodepressor in origin. He underwent right thoracentesis with negative cytology and cultures. Admitted this admission with A fib with RVR. Subsequent Hospital Course/Progress Note/Discharge Summary by plan: Plan: 1. Acute on chronic systolic failure class - s/p diuresis with IV lasix - Home with lasix 20mg daily - Started on aldactone 25mg daily - Increased diovan to 80mg daily - Echo noted, severely reduced EF <40% - Cardiology follow up next week 2. A Fib with RVR - Rate controlled - Toprol xl to 25mg daily - Continue Eliquis 2.5mg BID 3. Hypotension - Resolved 4. Seizures - No acute mental changes overnight - Maintain increased Keppra 750mg BID - D/w to have neuro follow up once done with MV consultation 5. CAD s/p CABG and re CABG - See meds above 6. Pleural effusion - Unchanged - Recent thoracentesis with negative cultures/cytology 7. Hypercholesterolemia - Atorvastatin 8. Mitral regurgitation - Has consultation for revision of valve repair scheduled in July 20. Anemia - Iron studies wnl 10. AMS; resolved Dispo: - home with vns, pcp and cardiology follow up and above meds Condition: Stable - Instructions Diet, Activity, Other Instructions: Please return to the ED for any new, persistent, or worsening symptoms. Follow up with your PCP in 1 week Keep MV clipping appointment at [place] Continue medications listed on home medication list, note new changes (diovan 80mg, Toprol xl 25mg daily, lasix 20mg daily) and new medications (aldactone 25mg daily) Referrals: Americo Soriano [Non Staff, Medical] - Jovanni Waddell MD [Staff Physician] - 1 Week (Insurance Sales Associate: Americo Haley) Americo Haley [Non Staff, Medical] - Medardo Hirsch MD [Staff Physician] - Disposition: HOME - Home Medications Comprehensive Discharge Medication List: Ambulatory Orders Atorvastatin Ca [Lipitor] 40 mg PO HS 06/08/16 Apixaban [Eliquis] 2.5 mg PO DAILY 07/06/16 Furosemide [Lasix -] 20 mg PO DAILY #30 tablet 07/10/16 Levetiracetam [Keppra -] 750 mg PO BID #60 tablet 07/10/16 Metoprolol Succinate [Toprol XL -] 25 mg PO DAILY #30 tab.sr.24h 07/10/16 Spironolactone [Aldactone -] 25 mg PO DAILY #30 tablet 07/10/16 Valsartan [Diovan] 80 mg PO DAILY #30 tablet 07/10/16 This patient is new to me today: No Emergency Visit: Yes ED Registration Date: 07/06/16 Care time: The patient presented to the Emergency Department on the above date and was hospitalized for further evaluation of their emergent condition. Critical Care patient: No - Discharge Referral Referred to [facility] Med [facility] No
[2016-07-10 14:59] VITALS: BP 96/63; PULSE 82; TEMP 98.4
== END 2016-07-10 16:38 | disposition home or self-care (01) | DRG 292 ==
LOC: JER 07:27 → JERBED 09:53 → J4W 17:22
PROVIDERS: ADMIT Internal Medicine; ATTEND Nurse Practitioner Acute Care
DX: I11.0 Hypertensive heart disease with heart failure (principal); I48.1 Persistent atrial fibrillation; Z79.01 Long term (current) use of anticoagulants; Z95.1 Presence of aortocoronary bypass graft; Z87.891 Personal history of nicotine dependence; Z95.2 Presence of prosthetic heart valve; Z99.81 Dependence on supplemental oxygen; E11.9 Type 2 diabetes mellitus without complications; E78.00 Pure hypercholesterolemia, unspecified; R00.2 Palpitations; I34.0 Nonrheumatic mitral (valve) insufficiency; I50.23 Acute on chronic systolic (congestive) heart failure; G40.909 Epilepsy, unspecified, not intractable, without status epilepticus; I44.7 Left bundle-branch block, unspecified; I25.119 Atherosclerotic heart disease of native coronary artery with unspecified angina pectoris; D64.9 Anemia, unspecified; D69.6 Thrombocytopenia, unspecified; R01.1 Cardiac murmur, unspecified; R39.11 Hesitancy of micturition; R41.82 Altered mental status, unspecified; I95.9 Hypotension, unspecified
CPT/HCPCS: 36415; 70450-TC; 71010-TC; 80048; 80053; 81003; 82550; 82728; 83540; 83550; 83735; 83880; 84100; 84443; 84466; 84484; 85025; 85610; 85730; 93005; 93010; 94640; 94761; 97116-GP; 97162-PG; 99285-25